=== PATIENT | female | born 1955 | race African-American/Black ===

== ENCOUNTER 2017-01-16 09:34 | Inpatient (IN) | payer MEDICAID, MEDICARE, OTHER ==
[~2017-01-16] VITALS: Ht 152.4 cm; Wt 135.0 kg
[~2017-01-16 09:34] MED LIST: CARV3.1240; DIAZ-104; ENAL5TAB92; FURO40TA; GLYB5TAB66; METF-370
[2017-01-16 10:45] LABS: Basophils # (auto) 0.1 uL; Basophils % (auto) 1.2 % (0.0-2.0); Eosinophils # (auto) 0.2 uL; Eosinophils % (auto) 4.2 % (0.0-7.0); Hemoglobin 13.7 g/dL (12.2-16.2); Lymphocytes # (auto) 1.3 uL; Lymphocytes % (auto) 25.8 % (10.0-50.0); Mean Corpuscular Hemoglobin 29.9 pg (28.0-32.0); Mean Corpuscular Hgb Conc. 33.3 g/dL (32.0-36.0); Mean Corpuscular Volume 89.7 fL (80.0-100.0); Mean Platelet Volume 7.7 fL (6.9-10.8); Monocytes # (auto) 0.5 uL; Monocytes % (auto) 10.7 % (0.0-12.0); Neutrophils # (auto) 2.9 uL; Neutrophils % (auto) 58.1 % (37.0-80.0); Nucleated Red Blood Cells % 0.1 %; Platelet Count (auto) 330 10^3/uL (140-450); Red Cell Distribution Width 14.5 % (11.8-14.3); White Blood Cell 4.9 10^3/uL (4.4-10.8)
[2017-01-16 11:24] LABS: Urine RBC None Seen /hpf (0 - 4)
[2017-01-16 11:40] LABS: Urine Bilirubin Negative (Negative); Urine Blood Negative /uL (Negative); Urine Color Yellow (Yellow); Urine Glucose Normal (Normal); Urine Ketone Negative (Negative); Urine Nitrite Negative (Negative); Urine Squamous Epithelial Cell FEW /hpf (<5); Urine Urobilinogen Normal (Negative)
[2017-01-16 11:43] LABS: BUN/Creatinine Ratio 16.7; Bilirubin, Total 0.3 mg/dL (0.2-1.0); Calcium 8.4 mg/dL (8.5-10.1); Potassium 4.1 mmol/L (3.5-5.1); Total Protein 7.5 g/dL (6.4-8.2)
[2017-01-16] MEDS ORDERED: LABETALOL HCL 5 MG/ML ML 20ML VIAL IV ONE ×2 (13:00→16:15)
[2017-01-16] MEDS ORDERED: cloNIDine HCL 0.1 MG TAB PO ONE (13:45)
[2017-01-16] MEDS ORDERED: ENALAPRIL MALEATE 10 MG TAB PO ONE (15:15)
[2017-01-16] MEDS ORDERED: HYDROcodone-ACET 5/325MG TAB PO PRN (16:45)
[2017-01-16] MEDS ORDERED: NITROGLYCERIN 0.4 MG SL TAB SL PRN (16:45)
[2017-01-16] MEDS ORDERED: MORPHINE SULF INJ 2 MG/ML SYRINGE 1ML IV PRN ×2 (16:45)
[2017-01-16] MEDS ORDERED: LABETALOL HCL 5 MG/ML ML 20ML VIAL IV PRN (16:45)
[2017-01-16] MEDS ORDERED: ACETAMINOPHEN 500 MG TAB PO PRN (16:45)
[2017-01-16] MEDS ORDERED: LORazepam 0.5 MG TAB PO PRN (16:45)
[2017-01-16] MEDS ORDERED: PROMETHAZINE HCL 25 MG/ML 1ML IV PRN (16:45)
[2017-01-16] MEDS ORDERED: TEMAZEPAM 15 MG CAP PO PRN (16:45)
[2017-01-16] MEDS ORDERED: ONDANSETRON HCL 4 MG/2 ML VIAL ONE (16:52)
[2017-01-16] MEDS: PANTOPRAZOLE 40 MG TAB PO SCH (17:51)
[2017-01-16] MEDS ORDERED: ENOXAPARIN SOD 40 MG/0.4 ML SYRINGE SC SCH (17:54)
[2017-01-16] MEDS ORDERED: LORazepam 2MG/ML-1ML VIAL IV PRN (18:30)
[2017-01-16 20:35] VITALS: BP 179/95
[2017-01-16 21:52] VITALS: BP 179/95
[2017-01-16] MEDS: METOPROLOL TARTRATE 25 MG TAB PO SCH (22:00)
[2017-01-16] MEDS ORDERED: ATORVASTATIN 20 MG TAB PO SCH (22:00)
[2017-01-17 04:44] VITALS: BP 153/98
[2017-01-17 08:00] VITALS: BP 158/98
[2017-01-17 08:58] VITALS: BP 158/98
[2017-01-17] MEDS ORDERED: ENALAPRIL MALEATE 10 MG TAB PO SCH (10:00)
[2017-01-17] MEDS ORDERED: ASPirin 81 mg TAB PO SCH (10:00)
[2017-01-17] MEDS ORDERED: ENOXAPARIN SOD 40 MG/0.4 ML SYRINGE SC SCH (10:00)
[2017-01-17] MEDS: METOPROLOL TARTRATE 25 MG TAB PO SCH (10:07)
[2017-01-17] MEDS: PANTOPRAZOLE 40 MG TAB PO SCH (10:07)
[2017-01-17 10:43] LABS: Temperature: 23.3 C (20.0-25.0)
[2017-01-17 14:05] VITALS: BP 161/96
[2017-01-17 16:42] VITALS: BP 162/92
[2017-01-17 17:32] VITALS: BP 132/93
== END 2017-01-17 19:00 | disposition home or self-care (01) | DRG 312 ==
LOC: ER 09:34 → EDBD 09:34 → TELE 09:35 → TELE-WESTW 20:35
PROVIDERS: ADMIT Internal Medicine; ATTEND Internal Medicine
DX: R55 Syncope and collapse (principal); I11.0 Hypertensive heart disease with heart failure; E44.0 Moderate protein-calorie malnutrition; I50.9 Heart failure, unspecified; E66.01 Morbid (severe) obesity due to excess calories; Z68.43 Body mass index [BMI] 50.0-59.9, adult; I16.0 Hypertensive urgency; F41.9 Anxiety disorder, unspecified; E11.9 Type 2 diabetes mellitus without complications; E78.5 Hyperlipidemia, unspecified; I25.2 Old myocardial infarction; Z82.0 Family history of epilepsy and other diseases of the nervous system; Z79.899 Other long term (current) drug therapy; Z79.82 Long term (current) use of aspirin; Z90.49 Acquired absence of other specified parts of digestive tract; Z90.710 Acquired absence of both cervix and uterus
CPT/HCPCS: 36415; 70450; 71020; 80053; 80061; 81001; 82550; 82607; 82746; 82962; 84443; 84484; 85025; 85379; 85652; 86141; 93005; 93306; 93886; 96372; 96374; 96375; J2405

== ENCOUNTER 2017-08-17 17:03 | Emergency (ER) | payer OTHER ==
[~2017-08-17] VITALS: Ht 152.4 cm; Wt 113.4 kg
[2017-08-17] MEDS ORDERED: ACETAMINOPHEN 325 MG TAB PO ONE (18:15)
[2017-08-17 19:20] VITALS: BP 157/93
== END 2017-08-17 20:56 | disposition home or self-care (01) ==
LOC: ER 17:03 → EDBD 17:03 → ER 20:56
DX: S00.01XA Abrasion of scalp, initial encounter (principal); I11.0 Hypertensive heart disease with heart failure; I50.9 Heart failure, unspecified; E11.9 Type 2 diabetes mellitus without complications; I25.2 Old myocardial infarction; Z79.84 Long term (current) use of oral hypoglycemic drugs; Z79.899 Other long term (current) drug therapy; Z90.49 Acquired absence of other specified parts of digestive tract; Z90.710 Acquired absence of both cervix and uterus; Y07.499 Other family member, perpetrator of maltreatment and neglect; Y93.89 Activity, other specified; Y99.8 Other external cause status; Y92.89 Other specified places as the place of occurrence of the external cause
CPT/HCPCS: 70450

== ENCOUNTER 2018-02-24 12:22 | Emergency (ER) | payer OTHER ==
[~2018-02-24] VITALS: Ht 165.1 cm; Wt 136.1 kg
[~2018-02-24 12:22] MED LIST changes: +ENAL5TAB; -ENAL5TAB92
[2018-02-24] MEDS ORDERED: MORPHINE SULFATE 10 MG/ML INJ 1ML SDV IV ONE (12:45)
[2018-02-24] MEDS ORDERED: ONDANSETRON HCL 4 MG/2 ML VIAL IV ONE (12:45)
[2018-02-24 13:52] LABS: Basophils # (auto) 0.1 uL; Basophils % (auto) 0.7 % (0.0-2.0); Eosinophils # (auto) 0.2 uL; Eosinophils % (auto) 2.3 % (0.0-7.0); Hematocrit 40.6 % (36.0-46.0); Hemoglobin 13.2 g/dL (12.2-16.2); Lymphocytes # (auto) 1.5 uL; Mean Corpuscular Hemoglobin 30.1 pg (28.0-32.0); Mean Corpuscular Hgb Conc. 32.6 g/dL (32.0-36.0); Mean Corpuscular Volume 92.1 fL (80.0-100.0); Monocytes # (auto) 0.5 uL; Monocytes % (auto) 7.7 % (0.0-12.0); Neutrophils # (auto) 4.7 uL; Neutrophils % (auto) 68.3 % (37.0-80.0); Nucleated Red Blood Cells % 0.1 %; Platelet Count (auto) 383 10^3/uL (140-450); Red Blood Cells 4.41 10^6/uL (4.0-5.20); Red Cell Distribution Width 14.2 % (11.8-14.3); White Blood Cell 6.9 10^3/uL (4.4-10.8)
[2018-02-24 14:10] LABS: Albumin 3.2 g/dL (3.4-5.0); Calcium 8.8 mg/dL (8.5-10.1)
[2018-02-24 14:12] LABS: BUN/Creatinine Ratio 14.8; Bilirubin, Total 0.2 mg/dL (0.2-1.0); Total Protein 7.5 g/dL (6.4-8.2)
[2018-02-24 15:55] VITALS: BP 108/72
[2018-02-24] MEDS: MORPHINE SULFATE 10 MG/ML INJ 1ML SDV IM ONE (16:04)
[2018-02-24] MEDS: ONDANSETRON HCL 4 MG/2 ML VIAL IM ONE (16:05)
== END 2018-02-24 16:05 | disposition home or self-care (01) ==
LOC: ER 12:22 → EDBD 12:22 → ER 16:05
DX: M54.41 Lumbago with sciatica, right side (principal); M79.18 Myalgia, other site; I11.0 Hypertensive heart disease with heart failure; I50.9 Heart failure, unspecified; E78.5 Hyperlipidemia, unspecified; I25.2 Old myocardial infarction; E11.9 Type 2 diabetes mellitus without complications; Z90.710 Acquired absence of both cervix and uterus; Z90.49 Acquired absence of other specified parts of digestive tract; Z79.84 Long term (current) use of oral hypoglycemic drugs; Z79.899 Other long term (current) drug therapy
CPT/HCPCS: 36415; 72131; 80053; 85025; 94761; 96372; 99284; J2270; J2405

== ENCOUNTER 2020-08-01 15:22 | Inpatient (IN) | payer OTHER ==
[~2020-08-01] VITALS: Ht 165.1 cm; Wt 136.5 kg
[~2020-08-01 15:22] MED LIST changes: -CARV3.1240; +CARV3.1240 PO; -DIAZ-104; +DIAZ5TAB; -ENAL5TAB; +ENAL5TAB10 PO; +FURO1TAB31 PO; -FURO40TA; -GLYB5TAB66; +GLYB5TAB66 PO; -METF-370; +METF-370 PO
[2020-08-01 17:17] LABS: Basophils # (auto) 0.1 10 ^3/uL (0-0.2); Basophils % (auto) 0.8 % (0.0-2.0); Eosinophils # (auto) 0.2 10 ^3/uL (0-0.8); Eosinophils % (auto) 3.3 % (0.0-7.0); Hematocrit 33.4 % (36.0-46.0); Lymphocytes # (auto) 1.6 10 ^3/uL (0.4-5.4); Lymphocytes % (auto) 23.8 % (10.0-50.0); Mean Corpuscular Hemoglobin 29.1 pg (28.0-32.0); Mean Corpuscular Volume 88.3 fL (80.0-100.0); Monocytes # (auto) 0.7 10 ^3/uL (0-1.3); Monocytes % (auto) 10.3 % (0.0-12.0); Neutrophils # (auto) 4.2 10 ^3/uL (1.6-8.6); Neutrophils % (auto) 61.8 % (37.0-80.0); Nucleated Red Blood Cells % 0.1 %; Red Blood Cells 3.79 10^6/uL (4.0-5.20); Red Cell Distribution Width 15.4 % (11.8-14.3); White Blood Cell 6.7 10^3/uL (4.4-10.8)
[2020-08-01] MEDS ORDERED: FUROSEMIDE 40 MG/4 ML VIAL IV ONE (17:30)
[2020-08-01 17:34] LABS: Albumin 2.7 g/dL (3.4-5.0); Anion Gap 6 (5-15); Aspartate Aminotransferase 13 U/L (15-37); BUN/Creatinine Ratio 18.4; Blood Urea Nitrogen 30 mg/dL (7-18); Calcium 8.4 mg/dL (8.5-10.1); Carbon Dioxide 26 mmol/L (21-32); Chloride 108 mmol/L (98-107); GFR African American 41 mL/min; GFR Non-African American 34 mL/min; Glucose 81 mg/dL (74-106); Potassium 4.7 mmol/L (3.5-5.1); Sodium 140 mmol/L (136-145)
[2020-08-01 17:38] LABS: Alanine Aminotransferase 16 U/L (13-56); Alkaline Phosphatase 92 U/L (45-117); Bilirubin, Total 0.1 mg/dL (0.2-1.0); Total Protein 7.2 g/dL (6.4-8.2)
[2020-08-01 18:13] LABS: Urine WBC None Seen /hpf (0 - 5)
[2020-08-01 18:37] LABS: Urine Bacteria NONE SEEN /hpf (None Seen); Urine Blood 1+ /uL (Negative); Urine Hyaline Cast MOD /lpf (0 - 2); Urine Mucus FEW (None Seen); Urine Specific Gravity 1.013 (1.001-1.035)
[2020-08-01] MEDS ORDERED: ENOXAPARIN SOD 60 MG/0.6 ML SYRINGE SC ONE (20:00)
[2020-08-01] MEDS ORDERED: NITROGLYCERIN 0.4 MG SL TAB SL PRN (20:00)
[2020-08-01] MEDS ORDERED: hydrALAZINE HCL 20 MG/ML VL IV PRN (20:00)
[2020-08-01] MEDS ORDERED: DOCUSATE CALCIUM 240 MG CAP PO PRN (20:00)
[2020-08-01] MEDS ORDERED: LORazepam 0.5 MG TAB PO PRN (20:00)
[2020-08-01] MEDS ORDERED: MORPHINE SULFATE INJECTION 2 MG/ML SYRG IV PRN ×2 (20:00)
[2020-08-01 21:20] VITALS: BP 156/93
[2020-08-01] MEDS: ONDANSETRON HCL 4 MG/2 ML VIAL IV PRN (21:53)
[2020-08-01] MEDS: BUDESONIDE (INHALATION) 0.5 MG/2 ML NEB NEB SCH (22:39)
[2020-08-01] MEDS: ALBUTEROL SULF 2.5 MG/0.5ML(0.5%) NEB SOLN NEB PRN (22:39)
[2020-08-01] MEDS: IPRATROPIUM BROM 0.5 MG/2.5ML INH SOL NEB PRN (22:40)
[2020-08-02] VITALS (8 sets, daily range): BP systolic 119–146; BP diastolic 30–80
[2020-08-02 05:57] LABS: Potassium 4.3 mmol/L (3.5-5.1)
[2020-08-02 06:03] LABS: INR 1.03 (0.9-1.15)
[2020-08-02 06:04] LABS: Albumin 2.7 g/dL (3.4-5.0); BUN/Creatinine Ratio 19.3; Bilirubin, Total 0.3 mg/dL (0.2-1.0); Calcium 8.3 mg/dL (8.5-10.1); Total Protein 6.6 g/dL (6.4-8.2)
[2020-08-02 06:21] LABS: Basophils # (auto) 0 10 ^3/uL (0-0.2); Basophils % (auto) 0.6 % (0.0-2.0); Eosinophils # (auto) 0.2 10 ^3/uL (0-0.8); Eosinophils % (auto) 3.9 % (0.0-7.0); Hematocrit 30.4 % (36.0-46.0); Hemoglobin 10.1 g/dL (12.2-16.2); Lymphocytes # (auto) 1.5 10 ^3/uL (0.4-5.4); Lymphocytes % (auto) 24.9 % (10.0-50.0); Mean Corpuscular Hemoglobin 28.8 pg (28.0-32.0); Mean Corpuscular Hgb Conc. 33.2 g/dL (32.0-36.0); Mean Corpuscular Volume 86.8 fL (80.0-100.0); Monocytes # (auto) 0.8 10 ^3/uL (0-1.3); Monocytes % (auto) 13.5 % (0.0-12.0); Neutrophils # (auto) 3.5 10 ^3/uL (1.6-8.6); Neutrophils % (auto) 57.1 % (37.0-80.0); Nucleated Red Blood Cells % 0.2 %; Red Cell Distribution Width 15.3 % (11.8-14.3); White Blood Cell 6.1 10^3/uL (4.4-10.8)
[2020-08-02] MEDS: PANTOPRAZOLE 40 MG TAB PO SCH (09:44)
[2020-08-02] MEDS ORDERED: ENOXAPARIN SOD 40 MG/0.4 ML SYRINGE SC SCH (10:00)
[2020-08-02] MEDS: ACETAMINOPHEN 500 MG TAB PO PRN (10:27)
[2020-08-02] MEDS: BUDESONIDE (INHALATION) 0.5 MG/2 ML NEB NEB SCH ×2 (10:39→19:11)
[2020-08-02] MEDS ORDERED: ATOR20TA50 PO (13:03)
[2020-08-02] MEDS ORDERED: ASPI81CH74 PO (13:03)
[2020-08-02] MEDS ORDERED: CHOL20007 OR (13:03)
[2020-08-02] MEDS ORDERED: GLIP10TA9 PO (13:11)
[2020-08-02 14:48] LABS: Protein, Urine 9.7 mg/dL (0.0-11.9)
[2020-08-02] MEDS: HYDROcodone-ACET 5/325MG TAB PO PRN ×2 (16:21→22:49)
[2020-08-02] MEDS: FUROSEMIDE 40 MG TAB PO SCH (18:05)
[2020-08-02] MEDS: glipiZIDE 5 MG TAB PO SCH (18:16)
[2020-08-02 19:55] LABS: Urine Bacteria FEW /hpf (None Seen); Urine Blood 3+ /uL (Negative); Urine Mucus FEW (None Seen); Urine Specific Gravity 1.018 (1.001-1.035); Urine WBC 64 /hpf (0 - 5)
[2020-08-02] MEDS: CARVEDILOL 3.125 MG TAB PO SCH (22:39)
[2020-08-02] MEDS: DULoxetine HCL 30 MG CAP PO SCH (22:39)
[2020-08-02] MEDS: APIXABAN 5 MG TAB PO SCH (22:40)
[2020-08-02] MEDS: ATORVASTATIN 20 MG TAB PO SCH (22:40)
[2020-08-03] VITALS (7 sets, daily range): BP systolic 95–154; BP diastolic 50–95
[2020-08-03 06:29] LABS: Basophils # (auto) 0 10 ^3/uL (0-0.2); Eosinophils # (auto) 0.2 10 ^3/uL (0-0.8); Eosinophils % (auto) 4.4 % (0.0-7.0); Hematocrit 29.8 % (36.0-46.0); Lymphocytes % (auto) 19.7 % (10.0-50.0); Mean Corpuscular Hemoglobin 29.3 pg (28.0-32.0); Mean Corpuscular Hgb Conc. 33.5 g/dL (32.0-36.0); Mean Corpuscular Volume 87.6 fL (80.0-100.0); Monocytes # (auto) 0.6 10 ^3/uL (0-1.3); Monocytes % (auto) 11.4 % (0.0-12.0); Neutrophils # (auto) 3.1 10 ^3/uL (1.6-8.6); Neutrophils % (auto) 63.5 % (37.0-80.0); Nucleated Red Blood Cells % 0.1 %; Red Cell Distribution Width 15.2 % (11.8-14.3); White Blood Cell 4.9 10^3/uL (4.4-10.8)
[2020-08-03 06:41] LABS: Calcium 8.2 mg/dL (8.5-10.1); Potassium 4.6 mmol/L (3.5-5.1)
[2020-08-03 06:46] LABS: Alanine Aminotransferase 14 U/L (13-56); Albumin 2.6 g/dL (3.4-5.0); Alkaline Phosphatase 74 U/L (45-117); Aspartate Aminotransferase 10 U/L (15-37); BUN/Creatinine Ratio 18.3; Bilirubin, Direct < 0.1 mg/dL (0-0.2); Bilirubin, Total 0.3 mg/dL (0.2-1.0); Phosphorus 3.7 mg/dL (2.5-4.90); Total Protein 6.7 g/dL (6.4-8.2)
[2020-08-03] MEDS: FUROSEMIDE 40 MG TAB PO SCH ×2 (06:52→17:31)
[2020-08-03] MEDS: glipiZIDE 5 MG TAB PO SCH ×2 (06:57→17:32)
[2020-08-03] MEDS: IPRATROPIUM BROM 0.5 MG/2.5ML INH SOL NEB PRN ×2 (07:39→18:13)
[2020-08-03] MEDS: ALBUTEROL SULF 2.5 MG/0.5ML(0.5%) NEB SOLN NEB PRN ×2 (07:39→18:13)
[2020-08-03] MEDS: BUDESONIDE (INHALATION) 0.5 MG/2 ML NEB NEB SCH ×2 (07:39→18:13)
[2020-08-03] MEDS: CHOLECALCIFEROL (VITD3) 1,000UNIT=25mCg TAB PO SCH (09:40)
[2020-08-03] MEDS: PANTOPRAZOLE 40 MG TAB PO SCH (09:40)
[2020-08-03] MEDS: ENALAPRIL MALEATE 10 MG TAB PO SCH (09:40)
[2020-08-03] MEDS: DULoxetine HCL 30 MG CAP PO SCH ×2 (09:41→21:52)
[2020-08-03] MEDS: APIXABAN 5 MG TAB PO SCH ×2 (09:41→21:52)
[2020-08-03] MEDS: CARVEDILOL 3.125 MG TAB PO SCH ×2 (09:42→21:52)
[2020-08-03] MEDS ORDERED: ASPirin 81 mg TAB PO SCH (10:00)
[2020-08-03] MEDS: MORPHINE SULFATE INJECTION 2 MG/ML SYRG IV PRN (18:43)
[2020-08-03] MEDS: ONDANSETRON HCL 4 MG/2 ML VIAL IV PRN (18:43)
[2020-08-03] MEDS: ATORVASTATIN 20 MG TAB PO SCH (21:52)
[2020-08-04 05:00] VITALS: BP 150/85
[2020-08-04 06:08] LABS: Basophils # (auto) 0 10 ^3/uL (0-0.2); Basophils % (auto) 0.5 % (0.0-2.0); Eosinophils # (auto) 0.2 10 ^3/uL (0-0.8); Eosinophils % (auto) 3.4 % (0.0-7.0); Hematocrit 31.3 % (36.0-46.0); Hemoglobin 10.6 g/dL (12.2-16.2); Lymphocytes # (auto) 0.7 10 ^3/uL (0.4-5.4); Lymphocytes % (auto) 12.5 % (10.0-50.0); Mean Corpuscular Hemoglobin 29.4 pg (28.0-32.0); Mean Corpuscular Hgb Conc. 33.8 g/dL (32.0-36.0); Monocytes # (auto) 0.6 10 ^3/uL (0-1.3); Neutrophils # (auto) 4.1 10 ^3/uL (1.6-8.6); Neutrophils % (auto) 72.6 % (37.0-80.0); Nucleated Red Blood Cells % 0.1 %; Red Cell Distribution Width 15.2 % (11.8-14.3); White Blood Cell 5.7 10^3/uL (4.4-10.8)
[2020-08-04] MEDS: FUROSEMIDE 40 MG TAB PO SCH ×2 (06:31→17:45)
[2020-08-04] MEDS: glipiZIDE 5 MG TAB PO SCH ×2 (06:32→17:44)
[2020-08-04 06:36] LABS: Calcium 8.4 mg/dL (8.5-10.1); Potassium 4.5 mmol/L (3.5-5.1)
[2020-08-04 06:40] LABS: BUN/Creatinine Ratio 19.9; Magnesium 2.6 mg/dL (1.6-2.6)
[2020-08-04] MEDS: BUDESONIDE (INHALATION) 0.5 MG/2 ML NEB NEB SCH ×2 (09:09→20:27)
[2020-08-04] MEDS: IPRATROPIUM BROM 0.5 MG/2.5ML INH SOL NEB PRN (09:09)
[2020-08-04] MEDS: ALBUTEROL SULF 2.5 MG/0.5ML(0.5%) NEB SOLN NEB PRN (09:09)
[2020-08-04] MEDS: CARVEDILOL 3.125 MG TAB PO SCH (09:19)
[2020-08-04] MEDS: APIXABAN 5 MG TAB PO SCH (09:19)
[2020-08-04] MEDS: PANTOPRAZOLE 40 MG TAB PO SCH (09:19)
[2020-08-04] MEDS: ENALAPRIL MALEATE 10 MG TAB PO SCH (09:20)
[2020-08-04] MEDS: CHOLECALCIFEROL (VITD3) 1,000UNIT=25mCg TAB PO SCH (09:21)
[2020-08-04] MEDS: ACETAMINOPHEN 500 MG TAB PO PRN (09:21)
[2020-08-04 09:24] VITALS: BP 142/72
[2020-08-04] MEDS: DULoxetine HCL 30 MG CAP PO SCH ×2 (10:00→11:13)
[2020-08-04] MEDS: HYDROcodone-ACET 5/325MG TAB PO PRN ×2 (11:13→21:25)
[2020-08-04 13:00] VITALS: BP 117/80
[2020-08-04] MEDS: GABAPENTIN 300 MG CAP PO SCH (14:25)
[2020-08-04 17:00] VITALS: BP 109/59
[2020-08-04 22:00] VITALS: BP_SYST 149; BP_SYST 157; BP_DIAS 86; BP_DIAS 87
[2020-08-05] MEDS: ATORVASTATIN 20 MG TAB PO SCH ×2 (01:54→21:24)
[2020-08-05] MEDS: DULoxetine HCL 30 MG CAP PO SCH ×3 (01:54→21:23)
[2020-08-05] MEDS: GABAPENTIN 300 MG CAP PO SCH ×4 (01:54→21:23)
[2020-08-05] MEDS: APIXABAN 5 MG TAB PO SCH ×3 (01:54→21:23)
[2020-08-05] MEDS: CARVEDILOL 3.125 MG TAB PO SCH ×3 (01:55→23:27)
[2020-08-05 03:20] VITALS: BP 149/86
[2020-08-05 05:00] VITALS: BP 157/87
[2020-08-05] MEDS: FUROSEMIDE 40 MG TAB PO SCH ×2 (05:14→17:35)
[2020-08-05] MEDS: glipiZIDE 5 MG TAB PO SCH ×2 (06:08→17:34)
[2020-08-05 06:31] LABS: Basophils # (auto) 0 10 ^3/uL (0-0.2); Basophils % (auto) 0.5 % (0.0-2.0); Eosinophils # (auto) 0.3 10 ^3/uL (0-0.8); Eosinophils % (auto) 4.7 % (0.0-7.0); Hematocrit 30.8 % (36.0-46.0); Hemoglobin 10.3 g/dL (12.2-16.2); Lymphocytes # (auto) 0.8 10 ^3/uL (0.4-5.4); Lymphocytes % (auto) 14.4 % (10.0-50.0); Mean Corpuscular Hgb Conc. 33.5 g/dL (32.0-36.0); Mean Corpuscular Volume 86.4 fL (80.0-100.0); Monocytes # (auto) 0.7 10 ^3/uL (0-1.3); Monocytes % (auto) 12.2 % (0.0-12.0); Neutrophils # (auto) 3.8 10 ^3/uL (1.6-8.6); Neutrophils % (auto) 68.2 % (37.0-80.0); Red Blood Cells 3.57 10^6/uL (4.0-5.20); Red Cell Distribution Width 15.2 % (11.8-14.3); White Blood Cell 5.5 10^3/uL (4.4-10.8)
[2020-08-05 06:42] LABS: Potassium 4.6 mmol/L (3.5-5.1)
[2020-08-05 06:56] LABS: BUN/Creatinine Ratio 20.8; Calcium 8.3 mg/dL (8.5-10.1); Magnesium 2.5 mg/dL (1.6-2.6)
[2020-08-05 09:00] VITALS: BP 156/82
[2020-08-05] MEDS: ENALAPRIL MALEATE 10 MG TAB PO SCH (10:13)
[2020-08-05] MEDS: PANTOPRAZOLE 40 MG TAB PO SCH (10:13)
[2020-08-05] MEDS: CHOLECALCIFEROL (VITD3) 1,000UNIT=25mCg TAB PO SCH (10:13)
[2020-08-05] MEDS: ALBUTEROL SULF 2.5 MG/0.5ML(0.5%) NEB SOLN NEB PRN ×2 (10:16→22:18)
[2020-08-05] MEDS: BUDESONIDE (INHALATION) 0.5 MG/2 ML NEB NEB SCH ×2 (10:16→22:18)
[2020-08-05] MEDS: IPRATROPIUM BROM 0.5 MG/2.5ML INH SOL NEB PRN ×2 (10:16→22:18)
[2020-08-05 13:00] VITALS: BP 144/88
[2020-08-05] MEDS: MORPHINE SULFATE INJECTION 2 MG/ML SYRG IV PRN (13:11)
[2020-08-05 17:17] VITALS: BP 148/84
[2020-08-05 22:00] VITALS: BP 155/89
[2020-08-06 05:00] VITALS: BP 144/89
[2020-08-06] MEDS: GABAPENTIN 300 MG CAP PO SCH ×3 (06:41→21:43)
[2020-08-06] MEDS: glipiZIDE 5 MG TAB PO SCH ×2 (06:42→18:00)
[2020-08-06] MEDS: FUROSEMIDE 40 MG TAB PO SCH ×2 (06:42→20:03)
[2020-08-06 07:29] LABS: Basophils # (auto) 0 10 ^3/uL (0-0.2); Basophils % (auto) 0.5 % (0.0-2.0); Eosinophils # (auto) 0.2 10 ^3/uL (0-0.8); Eosinophils % (auto) 3.8 % (0.0-7.0); Hematocrit 32.5 % (36.0-46.0); Hemoglobin 10.7 g/dL (12.2-16.2); Lymphocytes % (auto) 17.2 % (10.0-50.0); Mean Corpuscular Hemoglobin 28.6 pg (28.0-32.0); Mean Corpuscular Volume 86.7 fL (80.0-100.0); Monocytes # (auto) 0.7 10 ^3/uL (0-1.3); Neutrophils % (auto) 66.5 % (37.0-80.0); Nucleated Red Blood Cells % 0.1 %; Red Blood Cells 3.75 10^6/uL (4.0-5.20); Red Cell Distribution Width 15.2 % (11.8-14.3)
[2020-08-06 07:53] LABS: BUN/Creatinine Ratio 23.1; Calcium 8.4 mg/dL (8.5-10.1); Magnesium 2.6 mg/dL (1.6-2.6); Potassium 4.3 mmol/L (3.5-5.1)
[2020-08-06 08:00] VITALS: BP 144/89
[2020-08-06 09:00] VITALS: BP 124/75
[2020-08-06] MEDS: BUDESONIDE (INHALATION) 0.5 MG/2 ML NEB NEB SCH ×2 (10:20→19:44)
[2020-08-06] MEDS: ALBUTEROL SULF 2.5 MG/0.5ML(0.5%) NEB SOLN NEB PRN ×2 (10:20→19:44)
[2020-08-06] MEDS: IPRATROPIUM BROM 0.5 MG/2.5ML INH SOL NEB PRN ×2 (10:20→19:44)
[2020-08-06] MEDS: CHOLECALCIFEROL (VITD3) 1,000UNIT=25mCg TAB PO SCH (11:21)
[2020-08-06] MEDS: PANTOPRAZOLE 40 MG TAB PO SCH (11:22)
[2020-08-06] MEDS: APIXABAN 5 MG TAB PO SCH ×2 (11:22→21:44)
[2020-08-06] MEDS: ENALAPRIL MALEATE 10 MG TAB PO SCH (11:23)
[2020-08-06] MEDS: DULoxetine HCL 30 MG CAP PO SCH ×2 (11:23→21:44)
[2020-08-06] MEDS: CARVEDILOL 3.125 MG TAB PO SCH ×2 (11:25→21:45)
[2020-08-06 12:00] VITALS: BP 121/91
[2020-08-06 17:00] VITALS: BP 153/83
[2020-08-06] MEDS: ATORVASTATIN 20 MG TAB PO SCH (21:44)
[2020-08-06 22:00] VITALS: BP 150/100
[2020-08-07 05:00] VITALS: BP 139/69
[2020-08-07] MEDS: FUROSEMIDE 40 MG TAB PO SCH ×2 (05:19→18:00)
[2020-08-07] MEDS: GABAPENTIN 300 MG CAP PO SCH ×2 (05:19→14:25)
[2020-08-07] MEDS: HYDROcodone-ACET 5/325MG TAB PO PRN (05:25)
[2020-08-07] MEDS: glipiZIDE 5 MG TAB PO SCH ×2 (06:36→18:00)
[2020-08-07] MEDS: BUDESONIDE (INHALATION) 0.5 MG/2 ML NEB NEB SCH ×2 (06:52→19:37)
[2020-08-07] MEDS: IPRATROPIUM BROM 0.5 MG/2.5ML INH SOL NEB PRN (06:53)
[2020-08-07] MEDS: ALBUTEROL SULF 2.5 MG/0.5ML(0.5%) NEB SOLN NEB PRN (06:53)
[2020-08-07 09:00] VITALS: BP 161/94
[2020-08-07] MEDS: PANTOPRAZOLE 40 MG TAB PO SCH (09:59)
[2020-08-07] MEDS: APIXABAN 5 MG TAB PO SCH (09:59)
[2020-08-07] MEDS: CARVEDILOL 3.125 MG TAB PO SCH (09:59)
[2020-08-07] MEDS: ENALAPRIL MALEATE 10 MG TAB PO SCH (10:00)
[2020-08-07] MEDS: DULoxetine HCL 30 MG CAP PO SCH (10:00)
[2020-08-07] MEDS: CHOLECALCIFEROL (VITD3) 1,000UNIT=25mCg TAB PO SCH (10:01)
[2020-08-07 13:00] VITALS: BP 160/94
[2020-08-07 17:00] VITALS: BP 162/87
[2020-08-07 19:51] VITALS: BP 162/87
== END 2020-08-07 20:40 | DRG 299 ==
LOC: ER 15:22 → EDBD 15:22 → TELE 19:52 → TELE-EAST 21:20
PROVIDERS: ADMIT Family Medicine; ATTEND Internal Medicine
DX: I82.411 Acute embolism and thrombosis of right femoral vein (principal); N17.0 Acute kidney failure with tubular necrosis; I50.43 Acute on chronic combined systolic (congestive) and diastolic (congestive) heart failure; Z68.43 Body mass index [BMI] 50.0-59.9, adult; I13.0 Hypertensive heart and chronic kidney disease with heart failure and stage 1 through stage 4 chronic kidney disease, or unspecified chronic kidney disease; I69.354 Hemiplegia and hemiparesis following cerebral infarction affecting left non-dominant side; E11.42 Type 2 diabetes mellitus with diabetic polyneuropathy; E66.01 Morbid (severe) obesity due to excess calories; N18.32 Chronic kidney disease, stage 3b; D64.9 Anemia, unspecified; F41.9 Anxiety disorder, unspecified; Z20.822 Contact with and (suspected) exposure to COVID-19; E11.22 Type 2 diabetes mellitus with diabetic chronic kidney disease; E78.5 Hyperlipidemia, unspecified; J44.9 Chronic obstructive pulmonary disease, unspecified; Z90.49 Acquired absence of other specified parts of digestive tract; I25.2 Old myocardial infarction; Z79.01 Long term (current) use of anticoagulants; Z79.899 Other long term (current) drug therapy; Z90.710 Acquired absence of both cervix and uterus; I69.320 Aphasia following cerebral infarction
CPT/HCPCS: 36415; 71045; 76775; 80048; 80053; 80076; 81001; 82306; 82570; 82962; 83036; 83735; 83880; 84100; 84156; 84300; 84443; 84484; 85025; 85379; 85610; 87081; 87086; 87426; 93005; 93306; 93970; 94640; 96372; 96374; 96375; 97110; 97530; 99291; G0378; J2405

== ENCOUNTER 2020-09-14 18:28 | Emergency (ER) | payer OTHER ==
[~2020-09-14] VITALS: Ht 149.9 cm; Wt 113.4 kg
[~2020-09-14 18:28] MED LIST changes: +ASPI81CH74 PO; +ATOR20TA50 PO; +CHOL20007 OR; -DIAZ5TAB; +GLIP10TA9 PO; -GLYB5TAB66 PO
[2020-09-14 22:19] VITALS: BP 154/119
[2020-09-14] MEDS ORDERED: KETOROLAC TROMETH 60MG/2ML VIAL IM ONE (22:30)
== END 2020-09-15 03:10 | disposition home or self-care (01) ==
LOC: ER 18:34
DX: S83.8X2A Sprain of other specified parts of left knee, initial encounter (principal); M17.12 Unilateral primary osteoarthritis, left knee; I11.0 Hypertensive heart disease with heart failure; I50.9 Heart failure, unspecified; E11.9 Type 2 diabetes mellitus without complications; E78.5 Hyperlipidemia, unspecified; I25.2 Old myocardial infarction; Z79.82 Long term (current) use of aspirin; Z79.84 Long term (current) use of oral hypoglycemic drugs; Z79.899 Other long term (current) drug therapy; Z86.73 Personal history of transient ischemic attack (TIA), and cerebral infarction without residual deficits; Z90.49 Acquired absence of other specified parts of digestive tract; Z90.710 Acquired absence of both cervix and uterus; W01.0XXA Fall on same level from slipping, tripping and stumbling without subsequent striking against object, initial encounter; Y93.89 Activity, other specified; Y92.89 Other specified places as the place of occurrence of the external cause; Y99.8 Other external cause status
CPT/HCPCS: 73562; 73700; 96372; 99284; J1885

== ENCOUNTER 2024-04-26 13:53 | Inpatient (IN) | payer OTHER, MEDICARE, MEDICAID ==
[~2024-04-26] VITALS: Ht 154.9 cm; Wt 98.9 kg
[~2024-04-26 13:53] MED LIST changes: -ENAL5TAB10 PO; +ENAL5TAB22 PO
[2024-04-26] MEDS: ONDANSETRON ODT 4 MG TAB PO ONE (14:15)
[2024-04-26 14:55] VITALS: PULSE 140; RESP 18; O2SAT 94
[2024-04-26 16:14] LABS: Basophils # (auto) 0 10 ^3/uL (0-0.2); Basophils % (auto) 0.2 % (0.0-2.0); Eosinophils # (auto) 0 10 ^3/uL (0-0.8); Eosinophils % (auto) 0.4 % (0.0-7.0); Hematocrit 45.5 % (36.0-46.0); Hemoglobin 14.8 g/dL (12.2-16.2); Lymphocytes # (auto) 0.9 10 ^3/uL (0.4-5.4); Lymphocytes % (auto) 9.4 % (10.0-50.0); Mean Corpuscular Hemoglobin 30.4 pg (28.0-32.0); Mean Corpuscular Hgb Conc. 32.5 g/dL (32.0-36.0); Mean Corpuscular Volume 93.6 fL (80.0-100.0); Monocytes # (auto) 0.6 10 ^3/uL (0-1.3); Monocytes % (auto) 6.5 % (0.0-12.0); Neutrophils # (auto) 8.2 10 ^3/uL (1.6-8.6); Neutrophils % (auto) 83.5 % (37.0-80.0); Nucleated Red Blood Cells % 0.1 %; Platelet Count (auto) 405 10^3/uL (140-450); Red Blood Cells 4.87 10^6/uL (4.0-5.20); Red Cell Distribution Width 16.4 % (11.8-14.3); White Blood Cell 9.8 10^3/uL (4.4-10.8)
--- NOTE | 2024-04-26 16:17 | ED.PDOC ---
GI ASSESSMENT HPI Comments 69 y/o F, BIBA with PMHX of cancer, CHF, CVA, DM, HLD, HTN, and OH presents to the ED for CC of nausea/vomiting. Patient states, that she has been having nausea and vomiting x3days with associated symptoms of abdominal discomfort. Patient denies change in diet, diarrhea, fever, chills, or poor fluid intake. Patient denies social history. No other symptoms or modifying factors presents at this time. Chief Complaint: Nausea/Vomiting Time Seen by MD: 15:05 Primary Care Provider: RADHA Reviewed Notes: Nurses Notes, Integration Engineer Notes, Medications, Allergies Allergies: Coded Allergies: NO KNOWN ALLERGIES (Unverified , 04/02/10) Home Meds Reported Medications Glipizide (Glipizide) 10 Mg Tab, 1 TAB PO BID, #60 TAB 5 Refills 08/02/20 Atorvastatin Calcium (ATORVASTATIN CALCIUM) 20 Mg Tab, 1 TAB PO DAILY, #30 TAB 5 Refills 08/02/20 Cholecalciferol (VITAMIN D3) 2,000 Unit Tab, 5000 UNIT OR DAILY, TAB 08/02/20 Aspirin (Aspirin 81 Low Dose) 81 Mg Chw, 81 MG PO DAILY, TAB.CHEW 08/02/20 Carvedilol (Carvedilol) 3.125 Mg Tab, 1 TAB PO BID 04/02/10 Metformin Hydrochloride (Metformin Hcl) 500 Mg Tab, 1000 MG PO BID 04/02/10 Furosemide (Lasix) 40 Mg Tab, 1 TAB PO BID 04/02/10 Enalapril Maleate (Enalapril Maleate) 5 Mg Tab, 10 MG PO DAILY 04/02/10 Information Source: Patient Mode of Arrival: EMS Timing: Days Duration: Since onset Prehospital treatment: None Quality: None Vomitus: Watery Stool: Normal Severity: Moderate Recent: None Recent Hx of: None Pain Location: None Modifying Factors: Nothing Associated sign and symptoms: Nausea, Vomiting Past Medical History PAST MEDICAL HISTORY: Cancer, CHF, CVA, DM, High Lipids, HTN, OH Surgical History: Cholecystectomy, Hysterectomy ENGINEERING LEADER History: No Pertinent ENGINEERING LEADER History Family History Family History: Reviewed,noncontributory to illness, No family hx of Cancer Social History Smoker: Non-Smoker Alcohol: Denies ETOH Use Drugs: Denies Drug Use Lives In: Home Constitutional: denies: chills, diaphoresis, fatigue, fever, malaise, sweats, weakness, others EENTM: denies: blurred vision, double vision, ear bleeding, ear discharge, ear drainage, ear pain, ear ringing, eye pain, eye redness, hearing loss, mouth pain, mouth swelling, nasal discharge, nose bleeding, nose congestion, nose pain, photophobia, tearing, throat pain, throat swelling, voice changes, others Respiratory: denies: cough, hemoptysis, orthopnea, SOB at rest, shortness of breath, SOB with excertion, stridor, wheezing, others Cardiovascular: denies: chest pain, dizzy spells, diaphoresis, Dyspnea on exertion, edema, irregular heart beat, left arm pain, lightheadedness, palpitations, PND, syncope, others Gastrointestinal: reports: nausea, vomiting; denies: abdomen distended, abdominal pain, blood streaked bowels, constipated, diarrhea, dysphagia, difficulty swallowing, hematemesis, melena, poor appetite, poor fluid intake, rectal bleeding, rectal pain, others Genitourinary: denies: abnormal vagina bleeding, burning, dyspareunia, dysuria, flank pain, frequency, hematuria, incontinence, pain, , vagina discharge, urgency, others Neurological: denies: dizziness, fainting, headache, left sided numbness, left sided weakness, numbness, paresthesia, pre-existing deficit, right sided numbness, right sided weakness, seizure, speech problems, tingling, tremors, weakness, others Musculoskeletal: denies: back pain, gout, joint pain, joint swelling, muscle pain, muscle stiffness, neck pain, others Integumetry: denies: bruises, change in color, change in hair/nails, dryness, laceration, lesions, lumps, rash, wounds, others Allergic/Immunocompromised: denies: Difficulty Healing, Frequent Infections, Hives, Itching, others Hematologic/Lymphatic: denies: anemia, blood clots, easy bleeding, easy bruising, swollen glands, others Endocrine: denies: excessive hunger, excessive sweating, excessive thirst, excessive urination, flushing, intolerance to cold, intolerance to heat, unexplained weight gain, unexplained weight loss, others Psychiatric: denies: anxiety, bipolar disorder, depression, hopeless, panic disorder, schizophrenia, sleepless, suicidal, others All Other Systems: Reviewed and Negative Physical Exam General Appearance: Obese HEENT: Normal ENT Inspection, Pharynx Normal, Other (edentulism) Neck: Full Range of Motion, Non-Tender, Normal, Normal Inspection Respiratory: Chest Non-Tender, Lungs Clear, No Accessory Muscle Use, No Respiratory Distress, Normal Breath Sounds Cardiovascular: No Edema, No JVD, No Murmur, No Gallop, Normal Peripheral Pulses, Regular Rate/Rhythm Breast Exam: Deferred Gastrointestinal: No Organomegaly, No Pulsatile Mass, Normal Bowel Sounds, Tenderness Genitalia: Deferred Pelvic: Deferred Rectal: Deferred Musculoskeletal : Apperance: Normal Neurologic: Alert, color drum worker II-XII nml as Tested, No Motor Deficits, Normal Affect, Normal Mood, No Sensory Deficits Cerebellar Function: Normal Reflexes: Normal Skin: Dry, Normal Color, Warm Was a procedure done? Was a procedure done?: No GI differential Dx Differential Diagnosis: Gastritis/PUD, Gastroenteritis, Electrolyte Imbalance, Food Poisoning, Bacterial, Viral X-Ray, Labs, Meds, VS Vital Signs Date Time Temp Pulse Resp B/P (MAP) Pulse Ox O2 Delivery O2 Flow Rate FiO2 04/26/24 19:18 99.1 109 20 111/82 (92) 97 99.1 04/26/24 19:18 109 97 Room Air* 0 21 04/26/24 18:03 98.9 112 18 125/86 (99) 97 98.9 04/26/24 17:00 97.7 111 20 123/72 (89) 95 97.7 04/26/24 17:00 111 20 95 Room Air* 0 21 04/26/24 16:17 98.6 106 18 142/86 (104) 98 04/26/24 14:55 98.9 140 18 104/79 (87) 92 98.9 04/26/24 14:55 140 18 94 Room Air* 0 21 Lab Test 04/26/24 20:20 04/26/24 15:48 Range/Units POC Glucose 172 H 70-106 mg/dl White Blood Count 9.8 4.4-10.8 10^3/uL Red Blood Count 4.87 4.0-5.20 10^6/uL Hemoglobin 14.8 12.2-16.2 g/dL Hematocrit 45.5 36.0-46.0 % Mean Corpuscular Volume 93.6 80.0-100.0 fL Mean Corpuscular Hemoglobin 30.4 28.0-32.0 pg Mean Corpuscular Hemoglobin Concent 32.5 32.0-36.0 g/dL Red Cell Distribution Width 16.4 H 11.8-14.3 % Platelet Count 405 140-450 10^3/uL Mean Platelet Volume 8.0 6.9-10.8 fL Neutrophils (%) (Auto) 83.5 H 37.0-80.0 % Lymphocytes (%) (Auto) 9.4 L 10.0-50.0 % Monocytes (%) (Auto) 6.5 0.0-12.0 % Eosinophils (%) (Auto) 0.4 0.0-7.0 % Basophils (%) (Auto) 0.2 0.0-2.0 % Neutrophils # (Auto) 8.2 1.6-8.6 10 ^3/uL Lymphocytes # (Auto) 0.9 0.4-5.4 10 ^3/uL Monocytes # (Auto) 0.6 0-1.3 10 ^3/uL Eosinophils # (Auto) 0 0-0.8 10 ^3/uL Basophils # (Auto) 0 0-0.2 10 ^3/uL Nucleated Red Blood Cells 0.1 % Sodium Level 140 136-145 mmol/L Potassium Level 4.0 3.5-5.1 mmol/L Chloride Level 105 98-107 mmol/L Carbon Dioxide Level 25 20-31 mmol/L Anion Gap 10 5-15 Blood Urea Nitrogen 18 9-23 mg/dL Creatinine 1.66 H 0.550-1.02 mg/dL Glomerular Filtration Rate Calc 33 >90 mL/min BUN/Creatinine Ratio 10.8 10.0-20.0 Serum Glucose 168 H 74-106 mg/dL Calcium Level 10.4 8.7-10.4 mg/dL Total Bilirubin 0.7 0.2-1.0 mg/dL Aspartate Amino Transferase (AST) 8 L 13-40 U/L Alanine Aminotransferase (ALT) < 9 7-40 U/L Alkaline Phosphatase 91 46-116 U/L Total Protein 8.0 5.7-8.2 g/dL Albumin 4.6 3.2-4.8 g/dL Time of 1ST Reevaluation: 15:35 Reevaluation 1ST: Unchanged Patient Education/Counseling: Diagnosis, Treatment Family Education/Counseling: No Family Present Departure 1 Departure Time of Disposition: 21:01 Impression: Primary Impression: Small bowel obstruction Disposition: ADMITTED INPATIENT Condition: Stable Critical Care Note Critical Care Time?: No Stability Stability form required: No Heart Score Heart Score: Heart Score Response (Comments) Value History N/A 0 EKG N/A 0 Age N/A 0 Risk Factors N/A 0 Troponin N/A 0 Total 0 I personally scribed for ORESTES BERRY MD ([email or web address]) on 04/26/24 at 16:17. E lectronically submitted by Ann Marie Atkinson ([email or web address]). I personally scribed for ORESTES BERRY MD ([email or web address]) on 04/26/24 at 21:00. Electr onically submitted by Randall Hoyt ([email or web address]). ORESTES BERRY MD Apr 26, 2024 16:17 LAMONTE RUVALCABA MD Apr 26, 2024 21:01
[2024-04-26 16:28] LABS: Alkaline Phosphatase 91 U/L (46-116); Carbon Dioxide 25 mmol/L (20-31); Chloride 105 mmol/L (98-107)
[2024-04-26 16:29] LABS: Albumin 4.6 g/dL (3.2-4.8); Anion Gap 10 (5-15); BUN/Creatinine Ratio 10.8 (10.0-20.0); Bilirubin, Total 0.7 mg/dL (0.2-1.0); Blood Urea Nitrogen 18 mg/dL (9-23); Sodium 140 mmol/L (136-145)
[2024-04-26 16:30] LABS: Alanine Aminotransferase < 9 U/L (7-40); Aspartate Aminotransferase 8 U/L (13-40); Calcium 10.4 mg/dL (8.7-10.4); Glucose 168 mg/dL (74-106)
[2024-04-26 17:00] VITALS: PULSE 111; RESP 20; O2SAT 95
--- NOTE | 2024-04-26 18:50 | DVH ---
Procedure: CT CT AB PEL WO CON-NO ORAL OR IV 04/26/2024 05:53 PM Indication: ABDOMINAL PAIN Comparison Study: None Technique: Axial images were obtained and reformatted in coronal and sagittal planes. All CT scans at this medical facility are performed using dose modulation techniques as appropriate to a performed e xam including the following: Automated exposure control was utilized; adjustment of the MA and/or KV according to patient size; and use of iterative reconstruction technique. CT Dose: CTDI volume is 23. 75 mGy. Dose-length product is 1116.89 mGy*cm FINDINGS: Lower Chest: Unremarkable. Hepatobiliary: Gallbladder is surgically absent. Spleen: Unremarkable. Pancreas: Unremarkable. Adrenal Glands: Unremarkable. tract: The kidneys are normal in size bilaterally without hydronephrosis . Few subcentimeter calc ifications are seen in both kidneys measuring up to 4 mm that may be nonobstructive calculi or vascul ar calcifications. Few subcentimeter left renal cysts are seen. The urinary bladder is unremarkable. GI tract: The stomach is grossly normal in appearance. Distended small bowel loops are seen throughou t the abdomen measuring up to 4.2 cm in caliber with transition point in the right lower quadrant. Di stal ileum is collapsed. There is descending and sigmoid diverticulosis without diverticulitis. The a ppendix is normal. Lymphatics: No mesenteric, retroperitoneal or periportal lymphadenopathy. Vasculature: The abdominal aorta is normal in caliber. Diffuse calcified plaque formation is noted. Pelvic Organs: The uterus is surgically absent. No adnexal lesion is identified. Bones/soft tissues: No acute abnormality. Other: None. IMPRESSION: 1. Small-bowel obstruction with transition point in the right lower quadrant. Recommend surgical cons ultation. Further evaluation with small-bowel series with water-soluble contrast could be completed i f clinically indicated.
[2024-04-26 19:18] VITALS: PULSE 109; O2SAT 97
[2024-04-26] MEDS: ONDANSETRON HCL 4 MG/2 ML VIAL IV ONE ×2 (21:20→22:30)
[2024-04-26] MEDS: MORPHINE SULFATE INJ 2 MG/ml SYRG IV ONE (21:22)
--- NOTE | 2024-04-26 21:58 | DVH ---
EXAM: XY CHEST XRAY 1 VIEW TECHNIQUE: Single frontal chest radiograph CLINICAL HISTORY: NG placement COMPARISON: CHEST PORTABLE on DOS: 08/01/20 Findings/Impression: Frontal chest radiograph demonstrates that the patient's facial structures are obscuring bilateral ap ices. No acute osseous or superficial soft tissue abnormalities. Enteric tube is overlying the plane of the stomach. The trachea is midline. The cardiac silhouette and mediastinum are within normal limits. Low lung volumes bronchovascular crowding. No pneumothorax, pleural effusions, or consolidations.
--- NOTE | 2024-04-26 22:18 | DVHHPRES ---
History of Present Illness Resident Creating Document: MORIAH QUACH RESDIENT History of Present Illness This is a 69-year-old female with past medical history of CVA, diabetes type 2, dyslipidemia, hypertension, mi, paroxysmal atrial fibrillation, and dementia brought to the hospital due to nausea and vomiting. Due to advanced dementia, the patient could not provide proper history. Per patient's caregiver (Luis) she has vomiting since last night, vomited 5 times, contents was food with no blood. Patient also reports abdominal pain. Patient denies fever, chest pain, shortness of breath, dysuria, constipation or diarrhea. Shows previously on hospice care, currently bed-bound due to previous CVA. PMHx: CVA, diabetes type 2, dyslipidemia, hypertension, mi, and dementia and paroxysmal atrial fibrillation and morbid obesity PSHx: Hysterectomy, cholecystectomy Family history: Noncontributory Social history: Patient has been bed-bound since 2 years due to previous CVA and advanced dementia, ex-smoker, denies any other drug use Home medication: Aspirin, atorvastatin, carvedilol, enalapril, furosemide, Ozempic, Eliquis, oxybutynin, and duloxetine Allergic history: No known allergies Review of Systems Review of Systems General: patient denies fever, fatigue, weaknes, sweating, any recent changes in appetite and weight HEENT: No headaches, visiual changes, hearing loss, tinnitus, nasal congestion and discharge, and sore throat. Cardiovascular: Denies chest pain, palpitations, dyspnea on exertion, orthopnea, or claudication. Respiratory: No cough, and wheezing. Gastrointestinal: Reports nausea, vomiting and abdominal pain Genitourinary: No dysuria, hematuria, discharge, frequency, urgency, nocturia, incontinence, and urinary retention. Endocrine: No heat or cold intolerance, polydipsia, polyuria, and polyphagia. Neurological: No dizziness, extremity weakness and numbness, tremors, gait disturbance, seizures, and memory impairment. Psychiatric: Denies depression, anxiety,or insomnia. Musculoskeletal: Denies neck pain, stiffness and swelling, back pain, muscle weakness, joint pain, stiffness, swelling, or limited range of motion. Skin: No rashes, itching, skin lesion, changes in hair, nail, skin texture and breast. Hematologic/Lymphatic: Denies easy bruising, bleeding tendencies, or lymph node enlargement. Allergies: Coded Allergies: NO KNOWN ALLERGIES (Unverified , 04/02/10) Exam Vital Signs Vital Signs Date Time Temp Pulse Resp B/P (MAP) Pulse Ox O2 Delivery O2 Flow Rate FiO2 04/26/24 21:22 99.0 109 20 116/81 (93) 94 99.0 04/26/24 19:18 Room Air* 0 21 Exam General Appearance: Alert, Cooperative, due to advanced dementia, orientation could not evaluated HEENT: Atraumatic, PERRLA, EOMI, Mucous membrane moist/pink Respiratory: Clear to auscultation, Normal air movement Cardiovascular: Mild abdominal tenderness Abdominal: Normal bowel sounds, Soft, No tenderness, No hepatospenomegaly, No masses Extremities: No clubbing, No cyanosis, No edema, Normal pulses, No tenderness/swelling Skin: No rashes, No breakdown, No significant lesion Neuro: Due to advanced dementia neurological exam could not performed Labs/Xrays Labs Test 04/26/24 20:20 04/26/24 15:48 Range/Units POC Glucose 172 H 70-106 mg/dl White Blood Count 9.8 4.4-10.8 10^3/uL Red Blood Count 4.87 4.0-5.20 10^6/uL Hemoglobin 14.8 12.2-16.2 g/dL Hematocrit 45.5 36.0-46.0 % Mean Corpuscular Volume 93.6 80.0-100.0 fL Mean Corpuscular Hemoglobin 30.4 28.0-32.0 pg Mean Corpuscular Hemoglobin Concent 32.5 32.0-36.0 g/dL Red Cell Distribution Width 16.4 H 11.8-14.3 % Platelet Count 405 140-450 10^3/uL Mean Platelet Volume 8.0 6.9-10.8 fL Neutrophils (%) (Auto) 83.5 H 37.0-80.0 % Lymphocytes (%) (Auto) 9.4 L 10.0-50.0 % Monocytes (%) (Auto) 6.5 0.0-12.0 % Eosinophils (%) (Auto) 0.4 0.0-7.0 % Basophils (%) (Auto) 0.2 0.0-2.0 % Neutrophils # (Auto) 8.2 1.6-8.6 10 ^3/uL Lymphocytes # (Auto) 0.9 0.4-5.4 10 ^3/uL Monocytes # (Auto) 0.6 0-1.3 10 ^3/uL Eosinophils # (Auto) 0 0-0.8 10 ^3/uL Basophils # (Auto) 0 0-0.2 10 ^3/uL Nucleated Red Blood Cells 0.1 % Sodium Level 140 136-145 mmol/L Potassium Level 4.0 3.5-5.1 mmol/L Chloride Level 105 98-107 mmol/L Carbon Dioxide Level 25 20-31 mmol/L Anion Gap 10 5-15 Blood Urea Nitrogen 18 9-23 mg/dL Creatinine 1.66 H 0.550-1.02 mg/dL Glomerular Filtration Rate Calc 33 >90 mL/min BUN/Creatinine Ratio 10.8 10.0-20.0 Serum Glucose 168 H 74-106 mg/dL Calcium Level 10.4 8.7-10.4 mg/dL Total Bilirubin 0.7 0.2-1.0 mg/dL Aspartate Amino Transferase (AST) 8 L 13-40 U/L Alanine Aminotransferase (ALT) < 9 7-40 U/L Alkaline Phosphatase 91 46-116 U/L Total Protein 8.0 5.7-8.2 g/dL Albumin 4.6 3.2-4.8 g/dL Assessment/Plan Assessment/Plan Small-bowel obstruction CT scan shows, small-bowel obstruction with transition point in the right lower quadrant Surgical consultation NPO NG tube with intermittent suction IV fluid, ringer lactate Empiric antibiotic, Flagyl and Rocephin Zofran Morbid obesity BMI is 41.7 Counseled nutrition Diabetes type 2 History of CVA Dyslipidemia Hypertension Dementia CKD grade 3B Continue home meds DIET: NPO DVT PROPHYLAXIS: Lovenox GI PROPHYLAXIS:: Protonix CODE STATUS: Full code DISPOSITION: Med/surge Patient's status and paln discussed with the patient and the patient's caregiver (Luis) Case discussed with Dr. Das Plan discussed with: Patient, Other (RN) My Orders Orders - MORIAH QUACH RESDIENT Procedure Category Date Status Time Electrocardigram EKG 04/26/24 Logged 22:06 Date of Service: Apr 26, 2024 Billing Provider: MARIELLE DAS MD Common Visit Codes: 07573-[id number] INP/OBS CARE (HIGH) Secondary Visit Codes: 67804-[id number] CARE PLAN 30 MINUTES MORIAH QUACH Apr 26, 2024 22:18 KOFI CLINTON RESIDENT Apr 27, 2024 00:58 MARIELLE DAS MD Apr 27, 2024 16:57
[2024-04-26] MEDS ORDERED: CIPROFLOXACIN 400MG/200ML 200 ML IV ONE (22:30)
[2024-04-26] MEDS: DEXTROSE (50%) 50ML SYRG IV ONE (22:30)
[2024-04-26] MEDS ORDERED: metroNIDAZOLE 500 MG TAB PO ONE (22:30)
[2024-04-26] MEDS: ACCU-CHEK COMFORT CURVE STRIP VI ONE (22:30)
[2024-04-26 22:43] LABS: Urine Bacteria FEW /hpf (None Seen); Urine Blood Negative /uL (Negative); Urine Clarity Turbid (Clear); Urine Color Yellow (Yellow); Urine Hyaline Cast MOD /lpf (0 - 2); Urine Mucus FEW (None Seen); Urine Protein, UAD 1+ (Negative); Urine Specific Gravity 1.019 (1.001-1.035); Urine Squamous Epithelial Cell MOD /hpf (<5); Urine Urobilinogen Normal (Negative); Urine WBC < 1 /HPF (0-5)
[2024-04-26 23:17] LABS: Amphetamine Screen, Urine Neg (NEGATIVE)
[2024-04-26] MEDS: cefTRIAXone 1GM/50ML D5W 50 ML IV ONE (23:18)
[2024-04-26] MEDS: InsuLIN REG 1unit/0.01ml Soln (100units/ml) SC ONE (23:19)
[2024-04-26] MEDS: PANTOPRAZOLE 40 MG/10 ML VIAL INJ IV ONE (23:30)
[2024-04-26 23:45] VITALS: BP 120/87; PULSE 108; TEMP 98.2; O2SAT 92
[2024-04-26 23:46] LABS: Barbiturate Scree,Urine Neg (NEGATIVE); Benzodiazephine Screen, Urine Neg (NEGATIVE); Cannabinoid Screen, Urine Neg (NEGATIVE); Cocaine Screen, Urine Neg (NEGATIVE); Opiate Scree,Urine Neg (NEGATIVE); Phencyclidine Screen, Urine Neg (NEGATIVE)
[2024-04-27] VITALS (8 sets, daily range): BP systolic 120–129; BP diastolic 73–94; PULSE 102–111; RESP 16–20; TEMP 97.6–98.2; O2SAT 92–95
--- NOTE | 2024-04-27 00:38 | ECG ---
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
[2024-04-27] MEDS: LACTATED RINGER'S 1,000 ML IV ONE (00:56)
[2024-04-27] MEDS ORDERED: SEMA4INJ SC (02:27)
[2024-04-27] MEDS: metroNIDAZOLE 500MG/100ML 100 ML IV SCH (05:15)
[2024-04-27] MEDS ORDERED: metroNIDAZOLE 500 MG TAB PO SCH (06:00)
[2024-04-27 06:39] LABS: Basophils # (auto) 0 10 ^3/uL (0-0.2); Basophils % (auto) 0.1 % (0.0-2.0); Eosinophils # (auto) 0.1 10 ^3/uL (0-0.8); Eosinophils % (auto) 0.9 % (0.0-7.0); Hematocrit 43.9 % (36.0-46.0); Hemoglobin 13.7 g/dL (12.2-16.2); Mean Corpuscular Hemoglobin 30.9 pg (28.0-32.0); Mean Corpuscular Hgb Conc. 31.3 g/dL (32.0-36.0); Mean Corpuscular Volume 98.8 fL (80.0-100.0); Monocytes # (auto) 0.8 10 ^3/uL (0-1.3); Monocytes % (auto) 10.6 % (0.0-12.0); Neutrophils # (auto) 5.9 10 ^3/uL (1.6-8.6); Neutrophils % (auto) 75.4 % (37.0-80.0); Nucleated Red Blood Cells % 0.1 %; Platelet Count (auto) 368 10^3/uL (140-450); Red Blood Cells 4.44 10^6/uL (4.0-5.20); Red Cell Distribution Width 16.9 % (11.8-14.3); White Blood Cell 7.8 10^3/uL (4.4-10.8)
[2024-04-27 06:51] LABS: INR 1.11 (0.9-1.15); Partial Thromboplastin Time 29.1 SEC (24.5-34.5); Prothrombin Time 11.6 sec (9.3-11.8)
[2024-04-27 06:52] LABS: Alanine Aminotransferase < 9 U/L (7-40); Albumin 4.4 g/dL (3.2-4.8); Alkaline Phosphatase 84 U/L (46-116); Anion Gap 11 (5-15); Aspartate Aminotransferase 14 U/L (13-40); BUN/Creatinine Ratio 9.9 (10.0-20.0); Bilirubin, Total 0.6 mg/dL (0.2-1.0); Blood Urea Nitrogen 19 mg/dL (9-23); Carbon Dioxide 25 mmol/L (20-31); Chloride 105 mmol/L (98-107); Glucose 151 mg/dL (74-106); Potassium 3.9 mmol/L (3.5-5.1); Sodium 141 mmol/L (136-145); Total Protein 7.6 g/dL (5.7-8.2)
--- NOTE | 2024-04-27 08:00 | DVHINCON2 ---
Date of service: Apr 27, 2024 Reason for Consultation small bowel obstruction History of Present Illness History Source: Patient, Notes HPI 69 year old female presented to the ED with complaint of abdominal pain for the past 3 days associated with nausea and vomiting. Patient complaint of abdominal pain this morning with nausea. Abdomen distended, tender to palpation. Patient states she did have previous abdominal surgeries in the past. She is currently bed bound due to CVA. Home Meds Reported Medications Semaglutide (Ozempic) 4 Mg/3 Ml Inj, 4 MG SC, INJ 04/27/24 Semaglutide (Ozempic) 4 Mg/3 Ml Inj, 4 MG SC, INJ 04/27/24 Glipizide (Glipizide) 10 Mg Tab, 1 TAB PO BID, #60 TAB 5 Refills 08/02/20 Atorvastatin Calcium (ATORVASTATIN CALCIUM) 20 Mg Tab, 1 TAB PO DAILY, #30 TAB 5 Refills 08/02/20 Cholecalciferol (VITAMIN D3) 2,000 Unit Tab, 5000 UNIT OR DAILY, TAB 08/02/20 Aspirin (Aspirin 81 Low Dose) 81 Mg Chw, 81 MG PO DAILY, TAB.CHEW 08/02/20 Carvedilol (Carvedilol) 3.125 Mg Tab, 1 TAB PO BID 04/02/10 Furosemide (Lasix) 40 Mg Tab, 1 TAB PO BID 04/02/10 Enalapril Maleate (Enalapril Maleate) 5 Mg Tab, 10 MG PO DAILY 04/02/10 Discontinued Reported Medications Metformin Hydrochloride (Metformin Hcl) 500 Mg Tab, 1000 MG PO BID 04/02/10 Chief Complaint of Abdominal/F: Abdominal pain, Nausea Location of Abdominal Onset: Generalized abdomen Timing of Abdominal Pain: Still present Past Medical History Cardiac: HTN, Other (dyslipidemia) Central Nervous System: CVA GI: No pertinent Hx Hemotology/Oncology: No pertinent Hx Hepatobiliary: No pertinent Hx Psychiatric: No pertinent Hx Musculoskeletal: No pertinent Hx Rheumotologic: No pertinent Hx Infectious Disease: No peritnent Hx ENT: No pertinent Hx Renal/: No pertinent Hx Endocrine: No pertinent Hx, NIDDM Dermatology: No pertinent Hx Past Surgical History: Cholecystectomy, Hysterctomy Patient Family History: Patient reports no known family medical history. Smoker: No Hx (Negative) Alocohol: None Drugs: None Lives with: With family Review of Systems Constitutional: No symptom reported Ears, Nose, & Throat: No symptom reported Eyes: No symptom reported Pulmonary/Respiratory: No symptom reported Cardiovascular: No symptom reported Gastrointestinal: Nausea, Vomiting, Abdominal Pain Genitourinary: No symptom reported Musculoskeletal: No symptom reported Skin: No symptom reported Psychiatric: No symptom reported Endocrine: No symptom reported Hemotologic/Lymphatic: No symptom reported H&P Exam Vital Signs Vital Signs Date Time Temp Pulse Resp B/P (MAP) Pulse Ox O2 Delivery O2 Flow Rate FiO2 04/27/24 05:00 98.2 105 19 122/84 (97) 93 98.2 04/27/24 00:55 Room Air* 0 21 General Appeara: Well developed, Well nourished, Normal Appearance Eye Exam: bilateral eye Normal inspection Nasal Exam: Normal inspection Pulmonary/Respiratory: Normal inspection, Normal breath sounds Cardiovascular/Chest: Normal inspection, Regular rate, Normal Rhythm Abdominal Exam: Other (tender , distended ) Abdominal Pain Onset Location: Generalized abdomen Tendon/ Neuro: Normal sensation TELECOM ANALYST Exam: Normal hearing Neuro/Mental St: Alert, Oriented Labs/Xrays Labs Test 04/27/24 06:20 04/26/24 23:04 04/26/24 23:00 04/26/24 22:28 Range/Units White Blood Count 7.8 4.4-10.8 10^3/uL Red Blood Count 4.44 4.0-5.20 10^6/uL Hemoglobin 13.7 12.2-16.2 g/dL Hematocrit 43.9 36.0-46.0 % Mean Corpuscular Volume 98.8 # 80.0-100.0 fL Mean Corpuscular Hemoglobin 30.9 28.0-32.0 pg Mean Corpuscular Hemoglobin Concent 31.3 L 32.0-36.0 g/dL Red Cell Distribution Width 16.9 H 11.8-14.3 % Platelet Count 368 140-450 10^3/uL Mean Platelet Volume 7.5 6.9-10.8 fL Neutrophils (%) (Auto) 75.4 37.0-80.0 % Lymphocytes (%) (Auto) 13.0 10.0-50.0 % Monocytes (%) (Auto) 10.6 0.0-12.0 % Eosinophils (%) (Auto) 0.9 0.0-7.0 % Basophils (%) (Auto) 0.1 0.0-2.0 % Neutrophils # (Auto) 5.9 1.6-8.6 10 ^3/uL Lymphocytes # (Auto) 1.0 0.4-5.4 10 ^3/uL Monocytes # (Auto) 0.8 0-1.3 10 ^3/uL Eosinophils # (Auto) 0.1 0-0.8 10 ^3/uL Basophils # (Auto) 0 0-0.2 10 ^3/uL Nucleated Red Blood Cells 0.1 % Prothrombin Time 11.6 9.3-11.8 sec Prothrombin Time INR 1.11 0.9-1.15 Activated Partial Thromboplast Time 29.1 24.5-34.5 SEC Sodium Level 141 136-145 mmol/L Potassium Level 3.9 3.5-5.1 mmol/L Chloride Level 105 98-107 mmol/L Carbon Dioxide Level 25 20-31 mmol/L Anion Gap 11 5-15 Blood Urea Nitrogen 19 9-23 mg/dL Creatinine 1.92 H 0.550-1.02 mg/dL Glomerular Filtration Rate Calc 28 >90 mL/min BUN/Creatinine Ratio 9.9 L 10.0-20.0 Serum Glucose 151 H 74-106 mg/dL Calcium Level 10.0 8.7-10.4 mg/dL Total Bilirubin 0.6 0.2-1.0 mg/dL Aspartate Amino Transferase (AST) 14 13-40 U/L Alanine Aminotransferase (ALT) < 9 7-40 U/L Alkaline Phosphatase 84 46-116 U/L Total Protein 7.6 5.7-8.2 g/dL Albumin 4.4 3.2-4.8 g/dL POC Glucose 196 H 70-106 mg/dl Lactic Acid Level 1.6 0.4-2.0 mmol/L Lactate Dehydrogenase 204 120-246 U/L Urine Color Yellow Yellow Urine Clarity Turbid H Clear Urine pH 5.0 5.0-9.0 Urine Specific [place] 1.019 1.001-1.035 Urine Protein 1+ H Negative Urine Ketones Trace Negative Urine Blood Negative Negative /uL Urine Nitrite Negative Negative Urine Bilirubin Negative Negative Urine Urobilinogen Normal Negative mg/dL Urine Leukocyte Esterase Negative Negative /uL Urine RBC 2 0 - 4 /hpf Urine Microscopic WBC < 1 0-5 /HPF Urine Squamous Epithelial Cells Mod <5 /hpf Urine Bacteria Few H None Seen /hpf Urine Hyaline Casts Mod 0 - 2 /lpf Urine Mucus Few None Seen Urine Glucose Normal Normal mg/dL Urine Opiates Screen Neg NEGATIVE Urine Fentanyl Screen Neg NEGATIVE Urine Barbiturates Screen Neg NEGATIVE Urine Phencyclidine Screen Neg NEGATIVE Urine Amphetamines Screen Neg NEGATIVE Urine Benzodiazepines Screen Neg NEGATIVE Urine Cocaine Screen Neg NEGATIVE Urine Cannabinoids Screen Neg NEGATIVE Test 04/26/24 15:48 Range/Units Magnesium Level 2.1 1.6-2.6 mg/dL Assessment/Plan Problem List: (1) History of hysterectomy (2) Hx of cholecystectomy (3) Abdominal pain (4) Nausea (5) Small bowel obstruction Primary Diagnosis small bowel obstruction Plan review of CT patient complaint of abdominal pain for the past 3 days associated with nausea and vomiting abdomen distended, tender to palpation no flatus or BM Plan: NG NG to LCS Small bowel series pending Notified Dr. Luna Plan discussed with: Patient, Other (Dr. Luna) Visit Coding Surgery Date of Service if different f: Apr 27, 2024 Billing Provider: DAVE LUNA MD Surgery Visit Codes: 98097 - INP CONSULT <80 MIN [facility] Apr 27, 2024 08:00
[2024-04-27] MEDS: cefTRIAXone 1GM/50ML D5W 50 ML IV SCH (09:16)
[2024-04-27] MEDS: PANTOPRAZOLE 40 MG/10 ML VIAL INJ IV SCH ×2 (09:16→21:34)
[2024-04-27] MEDS: ENOXAPARIN SOD 100 MG/1 ML SYRINGE SC SCH (09:17)
[2024-04-27] MEDS: GASTROGRAFIN 120 ML SOL ONE (09:38)
[2024-04-27] MEDS ORDERED: CIPROFLOXACIN 400MG/200ML 200 ML IV SCH (10:00)
[2024-04-27] MEDS ORDERED: ACETAMINOPHEN 500 MG TAB or CAP PO PRN (15:30)
--- NOTE | 2024-04-27 15:43 | DVHPNRES ---
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 Patient reports that she experienced abdominal pain, started 4 days back associated with intractable nausea and vomiting which was dark yellow but not bloody. Denies passing gas. She could not keep any solid food down but could keep liquid. Says it last bowel movement was 4 days back. She lives with caregiver and is bed-bound. Denies smoking drinking or illicit drug use. On arrival, patient was tachycardic but normotensive. CT scan abdomen completed, showed Small-bowel obstruction with transition point in the right lower quadrant. Recommend surgical consultation. Further evaluation with small- bowel series with water-soluble contrast could be completed if clinically indicated. NG tube was administered with suction, patient was kept NPO, surgeon was consulted recommended a small bowel series with Gastrografin which is pending. Past medical history: See above Past surgical history : Open cholecystectomy and hysterectomy Social history: Lives with caregiver, bed-bound for the past 2 years due to stroke, denies smoking drinking or drug use Home medication: Aspirin, atorvastatin, carvedilol, enalapril, furosemide, Ozempic, Eliquis, oxybutynin, and duloxetine Patient seen and examined at the bedside. Pending small bowel series with Gastrografin. Objective vital signs Vital Sign Date Time Temp Pulse Resp B/P (MAP) Pulse Ox O2 Delivery O2 Flow Rate FiO2 04/27/24 13:00 98.0 102 18 128/73 (91) 93 98.0 04/27/24 08:00 Room Air* 0 21 Total Intake and Output 04/26/24 04/26/24 04/27/24 15:00 23:00 07:00 Intake Total 100 ml Output Total 150 ml Balance -150 ml 100 ml medications Current Medications Medications Dose Ordered Sig/Murali Route Start Time Stop Time Status Last Admin Dose Admin Metronidazole 500 mg Q8HR PO 04/27/24 06:00 Cancel Ondansetron HCl 4 mg Q6HPRN PRN IV 04/26/24 22:30 Ceftriaxone Sodium 50 ml @ 100 mls/hr DAILY@09 IV 04/27/24 09:00 04/27/24 09:16 100 MLS/HR Metronidazole 100 ml @ 100 mls/hr Q8HR IV 04/27/24 06:00 04/27/24 13:53 100 MLS/HR Pantoprazole Sodium 40 mg DAILY IV 04/27/24 10:00 04/27/24 09:16 40 MG Examination Morbidly obese female patient lying in bed, in no acute distress General: Morbidly obese, afebrile, palor, mucosae are moist Cardiovascular: Regular S1 and S2. No murmurs, gallops or rubs. No JVD elevation. No pedal edema Respiratory: Normal B/L air entry on room air. Clear lung sounds on auscultation Abdomen: Abdomen is distended, absent bowel sounds, no rebound tenderness. Vertical scar seen. Genitourinary: Deferred MSK/skin: Mobilizes 4 limbs. Skin is dry and warm Neurological: No motor, no sensitive deficits, normal speech. Pupils are isocoric and reactive. Psych/Mental Status: A/Ox3 laboratory and microbiology Laboratory Tests 04/27/24 06:20 Test 04/27/24 06:20 Range/Units Serum Glucose 151 H 74-106 mg/dL Labs and/or images reviewed: Labs reviewed by me, Image(s) reviewed by me Problem List/Assessment/Plan Problem List/Assessment/Plan ? Complete Small-bowel obstruction Descending and sigmoid diverticulosis CT scan shows, small-bowel obstruction with transition point in the right lower quadrant Surgical consultation -recommended Gastrografin series Continue NG tube with intermittent suction, continue NPO Continue fluid resuscitation with NG tube Ambulation can not be performed as the patient is bed-bound Empiric antibiotics IV fluids Guzman IV Rocephin Diabetes mellitus type 2-hemoglobin A1c pending On ISS ANDIE likely vasomotor on CKD stage IIIB On IV fluids Monitor History of CVA and subdural hematoma 2018 Holding aspirin given the likelihood of GI bleed in the dark black NG output History of hypertension, currently normotensive Holding antihypertensives at this point History of dementia Monitor Morbid obesity BMI is 41.7 Diet: NPO DVT prophylaxis on hold until stool occult is negative, output is dark black. currently SCDs GI prophylaxis: Pantoprazole 40 mg IV b.i.d. Plan discussed with patient and caregiver essence at the bedside in which all questions have been answered Goals of care discussed with patient for more than 20 minutes, full code status Case discussed with Plan discussed with: Patient, Other (Caregiver at the bedside) My Orders My Orders Orders - MARK ARCE Procedure Category Date Status Time Building Insulation Supervisor ORDERS 04/27/24 Transmitted 10:44 Transfer Orders XFER 04/27/24 Transmitted 10:44 Tylenol 500mg PHA 04/27/24 Transmitted 15:30 [place] 5/325mg PHA 04/27/24 Transmitted 15:30 Morphine 1mg PHA 04/27/24 Transmitted 15:30 Gabapentin Capsule PHA 04/27/24 Verified (Neurontin Capsule) 22:00 Gabapentin Capsule PHA 04/27/24 Verified (Neurontin Capsule) 15:45 Date of Service: Apr 27, 2024 Billing Provider: SHAISTA MAIN MD Common Visit Codes: [id number] INP/OBS CARE(HIGH) MARK ARCE Apr 27, 2024 15:43 SHAISTA MAIN MD Apr 28, 2024 14:31
[2024-04-27] MEDS: GABAPENTIN 100 MG CAP PO ONE (16:00)
[2024-04-27] MEDS ORDERED: ACETAMINOPHEN IV 1000 MG/100ML (10MG/ML) IV ONE (16:00)
[2024-04-27] MEDS: MORPHINE SULFATE INJ 2 MG/ml SYRG IV PRN (16:18)
[2024-04-27] MEDS: SODIUM CHLORIDE 0.9% 1,000 ML IV SCH (16:45)
[2024-04-27] MEDS: ONDANSETRON HCL 4 MG/2 ML VIAL IV PRN (17:32)
--- NOTE | 2024-04-27 20:00 | DVH ---
Procedure: XY SMALL BOWEL SERIES-W GASTROGRA Reason for study/Clinical History: Small Bowel Obstructtion Comparison Study: None available at time of dictation. Technique: Single contrast small bowel series performed. Findings: Initial lump machine operator view of the abdomen and pelvis appears demonstrates no acute process. Contrast is identified within the colon by 4 hours This represents probable small bowel ileus. IMPRESSION: small bowel ileus
[2024-04-27] MEDS: GABAPENTIN 100 MG CAP PO SCH (20:28)
[2024-04-28] VITALS (8 sets, daily range): BP systolic 113–147; BP diastolic 66–101; PULSE 83–112; RESP 16–19; TEMP 97–98; O2SAT 90–100
[2024-04-28 06:31] LABS: Basophils # (auto) 0 10 ^3/uL (0-0.2); Basophils % (auto) 0.3 % (0.0-2.0); Eosinophils # (auto) 0 10 ^3/uL (0-0.8); Eosinophils % (auto) 0.2 % (0.0-7.0); Hematocrit 43.9 % (36.0-46.0); Lymphocytes # (auto) 0.8 10 ^3/uL (0.4-5.4); Lymphocytes % (auto) 9.3 % (10.0-50.0); Mean Corpuscular Hemoglobin 30.4 pg (28.0-32.0); Mean Corpuscular Volume 95.1 fL (80.0-100.0); Monocytes # (auto) 0.9 10 ^3/uL (0-1.3); Monocytes % (auto) 10.1 % (0.0-12.0); Neutrophils # (auto) 6.9 10 ^3/uL (1.6-8.6); Neutrophils % (auto) 80.1 % (37.0-80.0); Nucleated Red Blood Cells % 0.1 %; Platelet Count (auto) 378 10^3/uL (140-450); Red Blood Cells 4.61 10^6/uL (4.0-5.20); Red Cell Distribution Width 16.9 % (11.8-14.3); White Blood Cell 8.6 10^3/uL (4.4-10.8)
[2024-04-28 06:48] LABS: Anion Gap 12 (5-15); Carbon Dioxide 26 mmol/L (20-31)
[2024-04-28 06:49] LABS: Calcium 9.9 mg/dL (8.7-10.4)
[2024-04-28 06:54] LABS: BUN/Creatinine Ratio 11.7 (10.0-20.0)
[2024-04-28 06:56] LABS: Blood Urea Nitrogen 23 mg/dL (9-23); Chloride 109 mmol/L (98-107); Glucose 163 mg/dL (74-106); Potassium 3.5 mmol/L (3.5-5.1); Sodium 147 mmol/L (136-145)
[2024-04-28] MEDS ORDERED: POTASSIUM CHL 20MEQ/100ML 100 ML IV ONE (07:30)
[2024-04-28] MEDS ORDERED: LACTATED RINGER'S 1,000 ML IV SCH (07:30)
--- NOTE | 2024-04-28 09:56 | DVHPNRES ---
Progress Note Date Seen: Apr 28, 2024 Resident Creating Document: MARK ARCE RESIDENT Medical Necessity Reason Pt with a Central, PICC or Fol: No Subjective Review of Systems Julianna Gibbs is a 69-year-old female past medical history of paroxysmal atrial fibrillation on Eliquis, CVA 2016 with residual weakness, bed-bound, subdural hematoma 2018, carotid stenosis, right femoral DVT 2020, neuropathic, diabetes mellitus type 2, dementia, hyperlipidemia and hypertension who presented to the ER with a chief complaint of intractable nausea and vomiting. Patient reports that she experienced abdominal pain, started 4 days back associated with intractable nausea and vomiting which was dark yellow but not bloody. Denies passing gas. She could not keep any solid food down but could keep liquid. Says it last bowel movement was 4 days back. She lives with caregiver and is bed-bound. Denies smoking drinking or illicit drug use. On arrival, patient was tachycardic but normotensive. CT scan abdomen completed, showed Small-bowel obstruction with transition point in the right lower quadrant. Recommend surgical consultation. Further evaluation with small- bowel series with water-soluble contrast could be completed if clinically indicated. NG tube was administered with suction, patient was kept NPO, surgeon was consulted recommended a small bowel series with Gastrografin which is pending. Past medical history: See above Past surgical history : Open cholecystectomy and hysterectomy Social history: Lives with caregiver, bed-bound for the past 2 years due to stroke, denies smoking drinking or drug use Home medication: Aspirin, atorvastatin, carvedilol, enalapril, furosemide, Ozempic, Eliquis, oxybutynin, and duloxetine 04/27-Patient seen and examined at the bedside. Pending small bowel series with Gastrografin. Had a small smear like bowel movement. 04/28-patient seen and examined at bedside. Gastrografin completed, contrast identified within the colon by 4 hours. Radiologist read as small bowel ileus. Patient had 2 episodes of watery yellowish emesis in p.m. yesterday, 1 episode of yellowish emesis at 4:00 a.m. this morning. Not passing gas, absent bowel movement. No bowel movements. Spoke to Dr. Luna , recommended continuing conservative measures. Objective vital signs Vital Sign Date Time Temp Pulse Resp B/P (MAP) Pulse Ox O2 Delivery O2 Flow Rate FiO2 04/28/24 09:00 97.4 108 18 128/89 102 90 97.4 04/28/24 08:00 Room Air* 0 21 Total Intake and Output 04/27/24 04/27/24 04/28/24 15:00 23:00 07:00 Intake Total 150 ml 100 ml 100 ml Output Total 350 ml 200 ml Balance 150 ml -250 ml -100 ml medications Current Medications Medications Dose Ordered Sig/Murali Route Start Time Stop Time Status Last Admin Dose Admin Metronidazole 500 mg Q8HR PO 04/27/24 06:00 Cancel Ondansetron HCl 4 mg Q6HPRN PRN IV 04/26/24 22:30 04/28/24 09:27 4 MG Ceftriaxone Sodium 50 ml @ 100 mls/hr DAILY@09 IV 04/27/24 09:00 04/28/24 09:09 100 MLS/HR Metronidazole 100 ml @ 100 mls/hr Q8HR IV 04/27/24 06:00 04/28/24 05:41 100 MLS/HR Acetaminophen 500 mg Q4HPRN PRN PO 04/27/24 15:30 Acetaminophen/ Hydrocodone Bitart 1 tab Q4HPRN PRN PO 04/27/24 15:30 Morphine Sulfate 1 mg Q4HPRN PRN IV 04/27/24 15:30 04/27/24 20:37 1 MG Gabapentin 100 mg BID PO 04/27/24 22:00 Pantoprazole Sodium 40 mg BID IV 04/27/24 22:00 04/28/24 09:11 40 MG Lactated Ringer's 1,000 ml @ 75 mls/hr [id number] IV 04/28/24 07:30 Examination Morbidly obese female patient lying in bed, in no acute distress General: Morbidly obese, afebrile, palor, mucosae are moist Cardiovascular: Regular S1 and S2. No murmurs, gallops or rubs. No JVD elevation. No pedal edema Respiratory: Normal B/L air entry on room air. Clear lung sounds on auscultation Abdomen: Abdomen is distended, tender and soft, absent bowel sounds, no rebound tenderness. Vertical scar seen. Genitourinary: Deferred MSK/skin: Mobilizes 4 limbs. Skin is dry and warm Neurological: No motor, no sensitive deficits, normal speech. Pupils are isocoric and reactive. Psych/Mental Status: A/Ox3 laboratory and microbiology Laboratory Tests 04/28/24 05:40 Test 04/28/24 05:40 Range/Units Serum Glucose 163 H 74-106 mg/dL Labs and/or images reviewed: Labs reviewed by me, Image(s) reviewed by me Problem List/Assessment/Plan Problem List/Assessment/Plan 04/28-patient seen and examined at bedside. Gastrografin completed, contrast identified within the colon by 4 hours. Radiologist read as small bowel ileus. Patient had 2 episodes of watery yellowish emesis in p.m. yesterday, 1 episode of yellowish emesis at 4:00 a.m. this morning. Not passing gas, absent bowel movement. No bowel movements. Spoke to Dr. Luna , recommended continuing conservative measures. H&H stable. Abdomen is soft but tender. Probable small bowel ileus ? Complete Small-bowel obstruction Descending and sigmoid diverticulosis CT scan shows, small-bowel obstruction with transition point in the right lower quadrant Surgical consultation -recommended continued conservative measures Continue NG tube with intermittent suction, continue NPO Continue fluid resuscitation with NG tube Ambulation can not be performed as the patient is bed-bound Empiric antibiotics IV fluids Guzman IV Rocephin X-ray small bowel series with Gastrografin shows Contrast is identified within the colon by 4 hours This represents probable small bowel ileus. Diabetes mellitus type 2-hemoglobin A1c pending On ISS ANDIE likely vasomotor on CKD stage IIIB On IV fluids Monitor History of CVA and subdural hematoma 2018 Holding aspirin given the likelihood of GI bleed in the dark black NG output History of hypertension, currently normotensive Holding antihypertensives at this point History of dementia Monitor Morbid obesity BMI is 41.7 Diet: NPO DVT prophylaxis on hold until stool occult is negative, output is dark black. currently SCDs GI prophylaxis: Pantoprazole 40 mg IV b.i.d. Plan discussed with patient and caregiver essence at the bedside in which all questions have been answered Goals of care discussed with patient for more than 20 minutes, full code status Case discussed with Plan discussed with: Patient My Orders My Orders Orders - MARK ARCE RESIDENT Procedure Category Date Status Time [employer] ORDERS 04/27/24 Transmitted 10:44 Transfer Orders XFER 04/27/24 Transmitted 10:44 Acetaminophen Tab Or PHA 04/27/24 In Process Cap (Tylenol Tablet 15:30 Hydrocodone-Acet PHA 04/27/24 In Process 5/325mg Tab ([place] 15:30 Morphine Sulfate PHA 04/27/24 In Process Injection 15:30 Gabapentin Capsule PHA 04/27/24 In Process (Neurontin Capsule) 22:00 Pantoprazole PHA 04/27/24 In Process (Protonix) 22:00 Stool Occult Blood LAB 04/27/24 Logged 16:41 Lactated Ringer's PHA 04/28/24 In Process 07:30 Potassium Chl PHA 04/28/24 In Process 20meq/50ml (Potassium 10:00 Sodium Chl 0.9% PHA 04/28/24 In Process (Sodium Chloride) 10:00 Date of Service: Apr 28, 2024 Billing Provider: SHAISTA MAIN MD Common Visit Codes: [id number] INP/OBS CARE(HIGH) MARK ARCE RESIDENT Apr 28, 2024 09:56 SHAISTA MAIN MD Apr 28, 2024 14:30
[2024-04-28] MEDS: SODIUM CHL 0.9% 100 ML IV ONE (10:00)
[2024-04-28] MEDS: POTASSIUM CHL 20MEQ/50ML 50 ML IV ONE (13:08)
--- NOTE | 2024-04-28 13:36 | DVHPN2 ---
Progress Note - Dictate Date Seen: Apr 28, 2024 Medical Necessity Reason Pt with a Central, PICC or Fol: No Subjective E: no major events o/n. c/o mild nausea in AM. vital signs Vital Sign Date Time Temp Pulse Resp B/P (MAP) Pulse Ox O2 Delivery O2 Flow Rate FiO2 04/28/24 09:00 97.4 108 18 128/89 (102) 90 97.4 04/28/24 08:00 Room Air* 0 21 Total Intake and Output 04/27/24 04/27/24 04/28/24 15:00 23:00 07:00 Intake Total 150 ml 100 ml 100 ml Output Total 350 ml 200 ml Balance 150 ml -250 ml -100 ml medications Current Medications Medications Dose Ordered Sig/Murali Route Start Time Stop Time Status Last Admin Dose Admin Metronidazole 500 mg Q8HR PO 04/27/24 06:00 Cancel Ondansetron HCl 4 mg Q6HPRN PRN IV 04/26/24 22:30 04/28/24 09:27 4 MG Ceftriaxone Sodium 50 ml @ 100 mls/hr DAILY@09 IV 04/27/24 09:00 04/28/24 09:09 100 MLS/HR Metronidazole 100 ml @ 100 mls/hr Q8HR IV 04/27/24 06:00 04/28/24 05:41 100 MLS/HR Acetaminophen 500 mg Q4HPRN PRN PO 04/27/24 15:30 Acetaminophen/ Hydrocodone Bitart 1 tab Q4HPRN PRN PO 04/27/24 15:30 Morphine Sulfate 1 mg Q4HPRN PRN IV 04/27/24 15:30 04/27/24 20:37 1 MG Gabapentin 100 mg BID PO 04/27/24 22:00 Pantoprazole Sodium 40 mg BID IV 04/27/24 22:00 04/28/24 09:11 40 MG Lactated Ringer's 1,000 ml @ 125 mls/hr Q8H IV 04/28/24 13:15 UNV objective GEN: NAD ABD: soft but distended with diffuse TTP. no BM. laboratory and microbiology Laboratory Tests 04/28/24 05:40 Test 04/28/24 05:40 Range/Units Serum Glucose 163 H 74-106 mg/dL Assessment/Plan A: 1. ileus vs pSBO P: 1. SBFT shows contrast in colon at 4 hrs but still with symptoms. repeat KUB Plan discussed with: Patient DAVE DE SANTIAGO MD Apr 28, 2024 13:36
--- NOTE | 2024-04-28 13:53 | DVH ---
EXAM: XY KUB ABDOMEN SINGLE VIEW HISTORY: sbo COMPARISON: None TECHNIQUE: Single AP of the abdomen and pelvis was obtained. Findings: Frontal view of the abdomen demonstrates multiple dilated loops of bowel with residual contrast. No definite evidence contrast within the colon. No visualized renal calculi. There is no evidence of an acute fracture, dislocation, blastic, or lytic lesions. The visualized portions of the lung bases are unremarkable. No radiopaque foreign bodies. No superficial soft tissue abnormalities. Impression: 1. Multiple loops of dilated bowel favored to reflect a bowel obstruction.
--- NOTE | 2024-04-28 14:49 | DVH ---
EXAM: XY CHEST PORTABLE TECHNIQUE: Single frontal chest radiograph CLINICAL HISTORY: NGT placement. tube was advanced. COMPARISON: XY CHEST XRAY 1 VIEW on DOS: 04/26/24, CHEST PORTABLE on DOS: 08/01/20 Findings/Impression: Frontal chest radiograph demonstrates no acute osseous or superficial soft tissue abnormalities. Enteric tube is overlying the plane of the stomach. The trachea is midline. The cardiac silhouette and mediastinum are within normal limits. Low lung volumes with bronchovascular crowding. No pneumothorax, pleural effusions, or consolidations.
[2024-04-28] MEDS: LACTATED RINGER'S 1,000 ML IV SCH (16:37)
[2024-04-29] VITALS (7 sets, daily range): BP systolic 127–142; BP diastolic 84–90; PULSE 95–102; RESP 18–19; TEMP 96.8–97.7; O2SAT 88–93
--- NOTE | 2024-04-29 10:37 | DVHPN2 ---
Progress Note - Dictate Date Seen: Apr 29, 2024 Medical Necessity Reason Pt with a Central, PICC or Fol: No Subjective E: no major events o/n. c/o abd pain. no BM. vital signs Vital Sign Date Time Temp Pulse Resp B/P (MAP) Pulse Ox O2 Delivery O2 Flow Rate FiO2 04/29/24 09:10 95 18 128/90 04/29/24 05:00 96.8 90 96.8 04/28/24 20:00 Room Air* 0 21 Total Intake and Output 04/28/24 04/28/24 04/29/24 15:00 23:00 07:00 Intake Total 50 ml 200 ml 100 ml Output Total 350 ml 400 ml Balance 50 ml -150 ml -300 ml medications Current Medications Medications Dose Ordered Sig/Murali Route Start Time Stop Time Status Last Admin Dose Admin Metronidazole 500 mg Q8HR PO 04/27/24 06:00 Cancel Ondansetron HCl 4 mg Q6HPRN PRN IV 04/26/24 22:30 04/28/24 20:46 4 MG Ceftriaxone Sodium 50 ml @ 100 mls/hr DAILY@09 IV 04/27/24 09:00 04/29/24 09:09 100 MLS/HR Metronidazole 100 ml @ 100 mls/hr Q8HR IV 04/27/24 06:00 04/29/24 05:26 100 MLS/HR Acetaminophen 500 mg Q4HPRN PRN PO 04/27/24 15:30 Acetaminophen/ Hydrocodone Bitart 1 tab Q4HPRN PRN PO 04/27/24 15:30 Morphine Sulfate 1 mg Q4HPRN PRN IV 04/27/24 15:30 04/29/24 09:10 1 MG Gabapentin 100 mg BID PO 04/27/24 22:00 Pantoprazole Sodium 40 mg BID IV 04/27/24 22:00 04/29/24 09:09 40 MG Lactated Ringer's 1,000 ml @ 125 mls/hr Q8H IV 04/28/24 13:15 04/29/24 05:25 125 MLS/HR objective GEN: NAD ABD: soft but distended with diffuse TTP. no BM. laboratory and microbiology Laboratory Tests 04/28/24 05:40 Test 04/28/24 05:40 Range/Units Serum Glucose 163 H 74-106 mg/dL Assessment/Plan A: 1. ileus vs SBO P: 1. SBFT shows contrast in colon at 4 hrs but reviewing the film, it is questionable. will get CT abd/pelvis today to confirm. Dietary Evaluation Review Comments: 1) Continue to monitor bowel activity. If patient remains NPO for more than 7 days, consider TPN to meet at least 75% of estimated needs 2) Consult surgery 3) Advance to clear liquid diet and progress to low-fiber diet when medically feasible, pending DOCUMENT MANAGEMENT TECHNICIAN approval 3) Refer to outpatient RD/CD[facility] for weight management Expected Outcomes/Goals: 1) Receive nutrition within 7 days 2) GI symptoms to resolve 3) appetite and labs to improve 4) diet to advance Plan discussed with: Patient DAVE DE SANTIAGO MD Apr 29, 2024 10:37
[2024-04-29] MEDS: metroNIDAZOLE 500MG/100ML 100 ML IV ONE (13:37)
[2024-04-29] MEDS: MORPHINE SULFATE INJ 2 MG/ml SYRG IV PRN (13:38)
--- NOTE | 2024-04-29 22:29 | DVH ---
Exam: CT CT AB PEL WO CON-NO ORAL OR IV History: sbo Comparison Study: None available at time of dictation. TECHNIQUE: Multidetector CT of the abdomen was performed from lung bases to pubic symphysis. Imaging was performed without IV contrast. Axial, coronal and sagittal multiplanar reformats were obtained fr om the axial data set by the technologist. Radiation Dose Information: CT Dose: CTDI volume is 21.7 mGy. Dose-length product is 1025.3 mGy*cm FINDINGS: Evaluation of solid organs is limited due to lack of intravenous contrast use. Findings: Lung Bases: No acute or significant lung base finding. Normal heart size. No pleural or pericardial effusion. Liver: The liver is normal in size. No focal lesions. Gallbladder and Biliary Tree: Gallbladder has been surgically removed. Spleen: Unremarkable Pancreas: The pancreas is grossly normal in appearance. Adrenal Glands: Unremarkable Kidneys: Kidneys are grossly normal without calculi or hydronephrosis. Bladder: [place] catheter in the bladder Bowel: The stomach is grossly normal in appearance. Enteric tube in the stomach Small bowel and colon are normal in caliber and distribution. Contrast noted mildly dilated small bowel and throughout the colon the rectum there are no findings to suggest bowel obstruction The appendix is not visualized; however, no secondary findings of acute appendicitis identified. Ascites: Absent Lymphadenopathy: No mesenteric, retroperitoneal or periportal lymphadenopathy. Abdominal Wall and Mesentery: Unremarkable. Vasculature: The visualized abdominal aorta is normal in size and caliber. Evaluation of abdominal a nd pelvic vessels is limited due to lack of intravenous contrast. Pelvic Organs: Unremarkable Musculoskeletal: No aggressive focal bony lesions, acute fractures or dislocation. Soft tissues: Unremarkable IMPRESSION: 1. No findings to suggest bowel obstruction. Findings may represent ileus. 2. Punctate nonobstructing renal calculi bilaterally. 3. Pancreas appears normal 4. 3 cm round pulmonary consolidation right posterior costophrenic angle. 5. Enteric tube in the stomach. Radiation optimization: All CT scans at this facility use at least one of these dose optimization catalina hniques: automated exposure control mA and/or kV adjustment per patient size (includes targeted exam s where dose is matched to clinical indication) or iterative reconstruction. HS:Y
--- NOTE | 2024-04-29 22:33 | DVHPN2 ---
Subjective The patient seen and examined at bedside. No complains today. Reviewed: Care Plan, H&P, Labs, Medications, Previous Orders, Radiology Changes from previous H/P or p: No Changes Objective Vitals Vital Signs Date Time Temp Pulse Resp B/P (MAP) Pulse Ox O2 Delivery O2 Flow Rate FiO2 04/29/24 21:00 97.1 102 19 135/84 (101) 90 97.1 04/29/24 08:00 Room Air* 0 21 Intake/Output Intake and Output 04/29/24 07:00 Intake Total 350 ml Output Total 750 ml Balance -400 ml Intake Oral 0 ml IV Total 350 ml Output Urine Total 750 ml General Appearance: Alert, Oriented X3, Cooperative, No acute distress HEENT: Atraumatic, PERRLA, EOMI, Mucous membr. moist/pink Neck: Supple Lungs: Clear to auscultation, Normal air movement Cardiovascular: Regular rate, Normal S1, Normal S2, No murmurs, Gallops, Rubs Abdomen: Normal bowel sounds, Soft, No tenderness Neuro: Cranial nerves 3-12 NL Psych/Mental Status: Mental status NL Medications Current Medications Medications Dose Ordered Sig/Murali Route Start Time Stop Time Status Last Admin Dose Admin Metronidazole 500 mg Q8HR PO 04/27/24 06:00 Cancel Ondansetron HCl 4 mg Q6HPRN PRN IV 04/26/24 22:30 04/28/24 20:46 4 MG Ceftriaxone Sodium 50 ml @ 100 mls/hr DAILY@09 IV 04/27/24 09:00 04/29/24 09:09 100 MLS/HR Metronidazole 100 ml @ 100 mls/hr Q8HR IV 04/27/24 06:00 04/29/24 22:01 100 MLS/HR Acetaminophen 500 mg Q4HPRN PRN PO 04/27/24 15:30 Acetaminophen/ Hydrocodone Bitart 1 tab Q4HPRN PRN PO 04/27/24 15:30 Gabapentin 100 mg BID PO 04/27/24 22:00 Pantoprazole Sodium 40 mg BID IV 04/27/24 22:00 04/29/24 22:01 40 MG Lactated Ringer's 1,000 ml @ 125 mls/hr Q8H IV 04/28/24 13:15 04/29/24 21:41 125 MLS/HR Morphine Sulfate 2 mg Q4HPRN PRN IV 04/29/24 12:15 04/29/24 13:38 2 MG Laboratory Results Laboratory Tests 04/28/24 05:40 Urinalysis Test 04/26/24 22:28 Urine Color Yellow (Yellow) Urine Clarity Turbid (Clear) H Urine pH 5.0 (5.0-9.0) Urine Specific [place] 1.019 (1.001-1.035) Urine Protein 1+ (Negative) H Urine Ketones Trace (Negative) Urine Blood Negative /uL (Negative) Urine Nitrite Negative (Negative) Urine Bilirubin Negative (Negative) Urine Urobilinogen Normal mg/dL (Negative) Urine Leukocyte Esterase Negative /uL (Negative) Urine RBC 2 /hpf (0 - 4) Urine Microscopic WBC < 1 /HPF (0-5) Urine Squamous Epithelial Cells Mod /hpf (<5) Urine Bacteria Few /hpf (None Seen) H Urine Hyaline Casts Mod /lpf (0 - 2) Urine Mucus Few (None Seen) Urine Glucose Normal mg/dL (Normal) Labs and/or images reviewed: Labs reviewed by me Assessment/Plan Assessment/Plan 04/28-patient seen and examined at bedside. Gastrografin completed, contrast identified within the colon by 4 hours. Radiologist read as small bowel ileus. Patient had 2 episodes of watery yellowish emesis in p.m. yesterday, 1 episode of yellowish emesis at 4:00 a.m. this morning. Not passing gas, absent bowel movement. No bowel movements. Spoke to Dr. Luna , recommended continuing conservative measures. H&H stable. Abdomen is soft but tender. Probable small bowel ileus ? Complete Small-bowel obstruction Descending and sigmoid diverticulosis CT scan shows, small-bowel obstruction with transition point in the right lower quadrant Surgical consultation -recommended continued conservative measures Continue NG tube with intermittent suction, continue NPO Continue fluid resuscitation with NG tube Ambulation can not be performed as the patient is bed-bound Empiric antibiotics IV fluids Guzman IV Rocephin X-ray small bowel series with Gastrografin shows Contrast is identified within the colon by 4 hours This represents probable small bowel ileus. Diabetes mellitus type 2-hemoglobin A1c pending On ISS ANDIE likely vasomotor on CKD stage IIIB On IV fluids Monitor History of CVA and subdural hematoma 2018 Holding aspirin given the likelihood of GI bleed in the dark black NG output History of hypertension, currently normotensive Holding antihypertensives at this point History of dementia Monitor Morbid obesity BMI is 41.7 Diet: NPO DVT prophylaxis on hold until stool occult is negative, output is dark black. currently SCDs GI prophylaxis: Pantoprazole 40 mg IV b.i.d. Plan discussed with patient and caregiver essence at the bedside in which all questions have been answered full code status Plan discussed with: Patient Date of Service: Apr 29, 2024 Billing Provider: SHAISTA MAIN MD Common Visit Codes: [id number] INP/OBS CARE(HIGH) SHAISTA MAIN MD Apr 29, 2024 22:33
[2024-04-30] VITALS (8 sets, daily range): BP systolic 118–161; BP diastolic 79–94; PULSE 88–130; RESP 18–20; TEMP 97.4–98.5; O2SAT 91–95
--- NOTE | 2024-04-30 06:40 | DVH ---
EXAM: XR Chest, 1 View CLINICAL INDICATION: NG TUBE PLACEMENT TECHNIQUE: Frontal view of the chest. COMPARISON: XY CHEST PORTABLE on DOS: 04/28/24, XY CHEST XRAY 1 VIEW on DOS: 04/26/24, CHEST PORTABLE on DOS: 08/01/20 FINDINGS: LUNGS AND PLEURAL SPACES: Pulmonary venous congestion. No consolidation. No pneumothorax. HEART: Unremarkable. No cardiomegaly. MEDIASTINUM: Unremarkable. Normal mediastinal contour. BONES/JOINTS: Unremarkable. No acute fracture. TUBES, LINES AND DEVICES: Enteric tube is in the stomach. OTHER FINDINGS: . IMPRESSION: 1. Enteric tube is in the stomach. 2. Pulmonary venous congestion.
[2024-04-30 10:26] LABS: Basophils # (auto) 0 10 ^3/uL (0-0.2); Basophils % (auto) 0.3 % (0.0-2.0); Eosinophils # (auto) 0.1 10 ^3/uL (0-0.8); Hemoglobin 13.9 g/dL (12.2-16.2); Lymphocytes % (auto) 10.3 % (10.0-50.0); Mean Corpuscular Hemoglobin 30.6 pg (28.0-32.0); Mean Corpuscular Hgb Conc. 32.4 g/dL (32.0-36.0); Mean Corpuscular Volume 94.4 fL (80.0-100.0); Monocytes # (auto) 0.9 10 ^3/uL (0-1.3); Monocytes % (auto) 9.4 % (0.0-12.0); Neutrophils # (auto) 7.5 10 ^3/uL (1.6-8.6); Nucleated Red Blood Cells % 0.1 %; Platelet Count (auto) 392 10^3/uL (140-450); Red Blood Cells 4.55 10^6/uL (4.0-5.20); Red Cell Distribution Width 16.2 % (11.8-14.3); White Blood Cell 9.4 10^3/uL (4.4-10.8)
[2024-04-30 10:28] LABS: INR 1.13 (0.9-1.15); Partial Thromboplastin Time 26.2 SEC (24.5-34.5); Prothrombin Time 11.8 sec (9.3-11.8)
[2024-04-30 10:49] LABS: Anion Gap 13 (5-15); Carbon Dioxide 24 mmol/L (20-31)
[2024-04-30 10:50] LABS: Calcium 9.7 mg/dL (8.7-10.4)
[2024-04-30 10:56] LABS: BUN/Creatinine Ratio 15.5 (10.0-20.0)
[2024-04-30 11:06] LABS: Blood Urea Nitrogen 23 mg/dL (9-23); Chloride 115 mmol/L (98-107); Glucose 149 mg/dL (74-106); Potassium 3.4 mmol/L (3.5-5.1); Sodium 152 mmol/L (136-145)
--- NOTE | 2024-04-30 12:42 | DVHPN2 ---
Progress Note - Dictate Date Seen: Apr 30, 2024 Medical Necessity Reason Pt with a Central, PICC or Fol: No Subjective E: no major events o/n. no complaints. vital signs Vital Sign Date Time Temp Pulse Resp B/P (MAP) Pulse Ox O2 Delivery O2 Flow Rate FiO2 04/30/24 09:00 98.3 96 20 138/93 (108) 94 98.3 04/30/24 08:00 Nasal Cannula* 2 28 Total Intake and Output 04/29/24 04/29/24 04/30/24 15:00 23:00 07:00 Intake Total 0 ml 100 ml Output Total 550 ml Balance -550 ml 100 ml medications Current Medications Medications Dose Ordered Sig/Murali Route Start Time Stop Time Status Last Admin Dose Admin Metronidazole 500 mg Q8HR PO 04/27/24 06:00 Cancel Ondansetron HCl 4 mg Q6HPRN PRN IV 04/26/24 22:30 04/29/24 22:40 4 MG Ceftriaxone Sodium 50 ml @ 100 mls/hr DAILY@09 IV 04/27/24 09:00 04/30/24 08:21 100 MLS/HR Metronidazole 100 ml @ 100 mls/hr Q8HR IV 04/27/24 06:00 04/30/24 06:02 100 MLS/HR Acetaminophen 500 mg Q4HPRN PRN PO 04/27/24 15:30 Acetaminophen/ Hydrocodone Bitart 1 tab Q4HPRN PRN PO 04/27/24 15:30 Gabapentin 100 mg BID PO 04/27/24 22:00 Pantoprazole Sodium 40 mg BID IV 04/27/24 22:00 04/30/24 08:21 40 MG Lactated Ringer's 1,000 ml @ 125 mls/hr Q8H IV 04/28/24 13:15 04/30/24 06:15 125 MLS/HR Morphine Sulfate 2 mg Q4HPRN PRN IV 04/29/24 12:15 04/30/24 04:27 2 MG objective GEN: NAD ABD: softer. much less TTP than yesterday. no BM. CT ABD/PELVIS: no SBO. contrast in colon. laboratory and microbiology Laboratory Tests 04/30/24 09:54 Test 04/30/24 09:54 Range/Units Serum Glucose 149 H 74-106 mg/dL Assessment/Plan A: 1. slowly resolving pSBO vs ileus. P: 1. clamp NGT 2. if no N/V, DC NGT tomorrow and start clear liquid diet. Dietary Evaluation Review Comments: 1) Continue to monitor bowel activity. If patient remains NPO for more than 7 days, consider TPN to meet at least 75% of estimated needs 2) Consult surgery 3) Advance to clear liquid diet and progress to low-fiber diet when medically feasible, pending SUPERVISOR PUTTY AND CALUKING approval 3) Refer to outpatient RD/CDCES for weight management Expected Outcomes/Goals: 1) Receive nutrition within 7 days 2) GI symptoms to resolve 3) appetite and labs to improve 4) diet to advance Plan discussed with: Patient DAVE DE SANTIAGO MD Apr 30, 2024 12:42
--- NOTE | 2024-04-30 17:12 | DVHPNRES ---
Progress Note Date Seen: Apr 30, 2024 Resident Creating Document: MARK ARCE RESIDENT Medical Necessity Reason Pt with a Central, PICC or Fol: No Subjective Review of Systems Julianna Gibbs is a 69-year-old female past medical history of paroxysmal atrial fibrillation on Eliquis, CVA 2016 with residual weakness, bed-bound, subdural hematoma 2018, carotid stenosis, right femoral DVT 2020, neuropathic, diabetes mellitus type 2, dementia, hyperlipidemia and hypertension who presented to the ER with a chief complaint of intractable nausea and vomiting. Patient reports that she experienced abdominal pain, started 4 days back associated with intractable nausea and vomiting which was dark yellow but not bloody. Denies passing gas. She could not keep any solid food down but could keep liquid. Says it last bowel movement was 4 days back. She lives with caregiver and is bed-bound. Denies smoking drinking or illicit drug use. On arrival, patient was tachycardic but normotensive. CT scan abdomen completed, showed Small-bowel obstruction with transition point in the right lower quadrant. Recommend surgical consultation. Further evaluation with small- bowel series with water-soluble contrast could be completed if clinically indicated. NG tube was administered with suction, patient was kept NPO, surgeon was consulted recommended a small bowel series with Gastrografin which is pending. Past medical history: See above Past surgical history : Open cholecystectomy and hysterectomy Social history: Lives with caregiver, bed-bound for the past 2 years due to stroke, denies smoking drinking or drug use Home medication: Aspirin, atorvastatin, carvedilol, enalapril, furosemide, Ozempic, Eliquis, oxybutynin, and duloxetine 04/27-Patient seen and examined at the bedside. Pending small bowel series with Gastrografin. Had a small smear like bowel movement. 04/28-patient seen and examined at bedside. Gastrografin completed, contrast identified within the colon by 4 hours. Radiologist read as small bowel ileus. Patient had 2 episodes of watery yellowish emesis in p.m. yesterday, 1 episode of yellowish emesis at 4:00 a.m. this morning. Not passing gas, absent bowel movement. No bowel movements. Spoke to Dr. Luna , recommended continuing conservative measures. 04/30 - patient seen and examined at the bedside. No emesis. Patient started to pass gas, on auscultation she has normal bowel sounds now. Over the weekend CT scan was completed which showed ileus. Surgeon saw the patient, recommended discontinuing NG tomorrow and starting clear liquid diet. Given the hypernatremia, discontinued LR, started D5. Objective vital signs Vital Sign Date Time Temp Pulse Resp B/P (MAP) Pulse Ox O2 Delivery O2 Flow Rate FiO2 04/30/24 12:40 98.3 107 18 144/94 (111) 93 98.3 04/30/24 08:00 Nasal Cannula* 2 28 Total Intake and Output 04/29/24 04/29/24 04/30/24 15:00 23:00 07:00 Intake Total 0 ml 100 ml Output Total 550 ml Balance -550 ml 100 ml medications Current Medications Medications Dose Ordered Sig/Murali Route Start Time Stop Time Status Last Admin Dose Admin Metronidazole 500 mg Q8HR PO 04/27/24 06:00 Cancel Ondansetron HCl 4 mg Q6HPRN PRN IV 04/26/24 22:30 04/29/24 22:40 4 MG Ceftriaxone Sodium 50 ml @ 100 mls/hr DAILY@09 IV 04/27/24 09:00 04/30/24 08:21 100 MLS/HR Metronidazole 100 ml @ 100 mls/hr Q8HR IV 04/27/24 06:00 04/30/24 15:38 100 MLS/HR Acetaminophen 500 mg Q4HPRN PRN PO 04/27/24 15:30 Acetaminophen/ Hydrocodone Bitart 1 tab Q4HPRN PRN PO 04/27/24 15:30 Gabapentin 100 mg BID PO 04/27/24 22:00 Pantoprazole Sodium 40 mg BID IV 04/27/24 22:00 04/30/24 08:21 40 MG Morphine Sulfate 2 mg Q4HPRN PRN IV 04/29/24 12:15 04/30/24 04:27 2 MG Examination Morbidly obese female patient lying in bed, in no acute distress General: Morbidly obese, afebrile, palor, mucosae are moist Cardiovascular: Regular S1 and S2. No murmurs, gallops or rubs. No JVD elevation. No pedal edema Respiratory: Normal B/L air entry on room air. Clear lung sounds on auscultation Abdomen: Abdomen is distended, tender and soft, normoactive bowel sounds, no rebound tenderness. Vertical scar seen. Genitourinary: Deferred MSK/skin: Mobilizes 4 limbs. Skin is dry and warm Neurological: No motor, no sensitive deficits, normal speech. Pupils are isocoric and reactive. Psych/Mental Status: A/Ox3 laboratory and microbiology Laboratory Tests 04/30/24 15:07 04/30/24 09:54 Test 04/30/24 09:54 Range/Units Serum Glucose 149 H 74-106 mg/dL Labs and/or images reviewed: Labs reviewed by me, Image(s) reviewed by me Problem List/Assessment/Plan Problem List/Assessment/Plan 04/30 - patient seen and examined at the bedside. No emesis. Patient started to pass gas, on auscultation she has normal bowel sounds now. Over the weekend CT scan was completed which showed ileus. Surgeon saw the patient, recommended discontinuing NG tomorrow and starting clear liquid diet. Given the hypernatremia, discontinued LR, started D5. Probable small bowel ileus ? Complete Small-bowel obstruction Descending and sigmoid diverticulosis CT scan shows, small-bowel obstruction with transition point in the right lower quadrant Surgical consultation -recommended continued conservative measures Continue NG tube with intermittent suction, continue NPO Continue fluid resuscitation with NG tube Ambulation can not be performed as the patient is bed-bound Empiric antibiotics IV fluids Guzman IV Rocephin X-ray small bowel series with Gastrografin shows Contrast is identified within the colon by 4 hours This represents probable small bowel ileus. IV lactated ringer switched to D5 given hyponatremia Diabetes mellitus type 2-hemoglobin A1c pending On ISS ANDIE likely vasomotor on CKD stage IIIB On IV fluids Monitor Hypernatremia Started d5 History of CVA and subdural hematoma 2019 Holding aspirin given the likelihood of GI bleed in the dark black NG output History of hypertension, currently normotensive Holding antihypertensives at this point History of dementia Monitor Morbid obesity BMI is 41.7 Diet: NPO DVT prophylaxis on hold until stool occult is negative, output is dark black. currently SCDs GI prophylaxis: Pantoprazole 40 mg IV b.i.d. Plan discussed with patient and caregiver essence at the bedside in which all questions have been answered Goals of care discussed with patient for more than 20 minutes, full code status Case discussed with Plan discussed with: Patient Dietary Evaluation Review Comments: 1) Continue to monitor bowel activity. If patient remains NPO for more than 7 days, consider TPN to meet at least 75% of estimated needs 2) Consult surgery 3) Advance to clear liquid diet and progress to low-fiber diet when medically feasible, pending RESEARCH BIOSTATISTICIAN approval 3) Refer to outpatient RD/[facility] for weight management Expected Outcomes/Goals: 1) Receive nutrition within 7 days 2) GI symptoms to resolve 3) appetite and labs to improve 4) diet to advance Date of Service: Apr 30, 2024 Billing Provider: DONNY MENDIETA DO Common Visit Codes: [id number] INP/OBS CARE(HIGH) MARK ARCE RESIDENT Apr 30, 2024 17:12 DONNY MENDIETA DO May 02, 2024 16:22
[2024-04-30] MEDS: D5W 5% 1,000 ML IV SCH (17:15)
[2024-04-30] MEDS: POTASSIUM CHL 20MEQ/100ML 100 ML IV SCH (18:15)
[2024-05-01] VITALS (9 sets, daily range): BP systolic 105–146; BP diastolic 49–99; PULSE 90–111; RESP 16–19; TEMP 97.4–98.4; O2SAT 93–97
[2024-05-01] MEDS: LACTATED RINGER'S 2,000 ML IV ONE (05:11)
--- NOTE | 2024-05-01 07:40 | DVHPN2 ---
Progress Note - Dictate Date Seen: May 01, 2024 Medical Necessity Reason Pt with a Central, PICC or Fol: No Subjective E: no major events o/n. NGT clamped o/n. on ice chips. questionable emesis? but no evidence per RN. no complaints. feels better than yesterday. reports flatus. no BM vital signs Vital Sign Date Time Temp Pulse Resp B/P (MAP) Pulse Ox O2 Delivery O2 Flow Rate FiO2 05/01/24 05:00 98.2 98 19 105/49 (67) 94 98.2 04/30/24 20:00 Nasal Cannula* 2 28 Total Intake and Output 04/30/24 04/30/24 05/01/24 15:00 23:00 07:00 Intake Total 100 ml 675 ml 200 ml Output Total 550 ml 300 ml Balance 100 ml 125 ml -100 ml medications Current Medications Medications Dose Ordered Sig/Murali Route Start Time Stop Time Status Last Admin Dose Admin Metronidazole 500 mg Q8HR PO 04/27/24 06:00 Cancel Ondansetron HCl 4 mg Q6HPRN PRN IV 04/26/24 22:30 04/29/24 22:40 4 MG Ceftriaxone Sodium 50 ml @ 100 mls/hr DAILY@09 IV 04/27/24 09:00 04/30/24 08:21 100 MLS/HR Metronidazole 100 ml @ 100 mls/hr Q8HR IV 04/27/24 06:00 05/01/24 05:11 100 MLS/HR Acetaminophen 500 mg Q4HPRN PRN PO 04/27/24 15:30 Acetaminophen/ Hydrocodone Bitart 1 tab Q4HPRN PRN PO 04/27/24 15:30 Gabapentin 100 mg BID PO 04/27/24 22:00 Pantoprazole Sodium 40 mg BID IV 04/27/24 22:00 04/30/24 21:31 40 MG Morphine Sulfate 2 mg Q4HPRN PRN IV 04/29/24 12:15 05/01/24 02:41 2 MG Dextrose 1,000 ml @ 75 mls/hr [id number] IV 04/30/24 17:15 04/30/24 17:15 75 MLS/HR objective GEN: NAD ABD: soft. NT laboratory and microbiology Laboratory Tests 04/30/24 15:07 04/30/24 09:54 Test 04/30/24 09:54 Range/Units Serum Glucose 149 H 74-106 mg/dL Assessment/Plan A: 1. slowly resolving pSBO vs ileus. P: 1. DC NGT and start clear liquid diet. Dietary Evaluation Review Comments: 1) Continue to monitor bowel activity. If patient remains NPO for more than 7 days, consider TPN to meet at least 75% of estimated needs 2) Consult surgery 3) Advance to clear liquid diet and progress to low-fiber diet when medically feasible, pending [employer] MACHINE OPERATOR approval 3) Refer to outpatient RD/[facility] for weight management Expected Outcomes/Goals: 1) Receive nutrition within 7 days 2) GI symptoms to resolve 3) appetite and labs to improve 4) diet to advance Plan discussed with: Patient DAVE DE SANTIAGO MD May 01, 2024 07:40
[2024-05-01 09:26] LABS: Basophils # (auto) 0 10 ^3/uL (0-0.2); Basophils % (auto) 0.3 % (0.0-2.0); Eosinophils # (auto) 0.2 10 ^3/uL (0-0.8); Eosinophils % (auto) 2.2 % (0.0-7.0); Hematocrit 39.4 % (36.0-46.0); Hemoglobin 13.1 g/dL (12.2-16.2); Lymphocytes # (auto) 1.5 10 ^3/uL (0.4-5.4); Lymphocytes % (auto) 16.1 % (10.0-50.0); Mean Corpuscular Hemoglobin 31.5 pg (28.0-32.0); Mean Corpuscular Hgb Conc. 33.3 g/dL (32.0-36.0); Mean Corpuscular Volume 94.6 fL (80.0-100.0); Monocytes # (auto) 1.1 10 ^3/uL (0-1.3); Monocytes % (auto) 11.8 % (0.0-12.0); Neutrophils # (auto) 6.5 10 ^3/uL (1.6-8.6); Neutrophils % (auto) 69.6 % (37.0-80.0); Nucleated Red Blood Cells % 0.3 %; Platelet Count (auto) 373 10^3/uL (140-450); Red Blood Cells 4.16 10^6/uL (4.0-5.20); Red Cell Distribution Width 16.3 % (11.8-14.3); White Blood Cell 9.3 10^3/uL (4.4-10.8)
[2024-05-01 09:45] LABS: Alanine Aminotransferase 9 U/L (7-40); Alkaline Phosphatase 69 U/L (46-116); Anion Gap 9 (5-15); Aspartate Aminotransferase 12 U/L (13-40); BUN/Creatinine Ratio 13.4 (10.0-20.0); Blood Urea Nitrogen 19 mg/dL (9-23); Calcium 9.4 mg/dL (8.7-10.4); Carbon Dioxide 24 mmol/L (20-31); Chloride 114 mmol/L (98-107); Glucose 154 mg/dL (74-106); Magnesium 2.3 mg/dL (1.6-2.6); Potassium 3.7 mmol/L (3.5-5.1); Sodium 147 mmol/L (136-145); Total Protein 6.9 g/dL (5.7-8.2)
[2024-05-01 09:47] LABS: Bilirubin, Total 0.4 mg/dL (0.2-1.0)
[2024-05-01] MEDS: FLEET ENEMA(ADULT) 135 ML PR ONE (10:09)
--- NOTE | 2024-05-01 15:38 | DVHPNRES ---
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 Patient reports that she experienced abdominal pain, started 4 days back associated with intractable nausea and vomiting which was dark yellow but not bloody. Denies passing gas. She could not keep any solid food down but could keep liquid. Says it last bowel movement was 4 days back. She lives with caregiver and is bed-bound. Denies smoking drinking or illicit drug use. On arrival, patient was tachycardic but normotensive. CT scan abdomen completed, showed Small-bowel obstruction with transition point in the right lower quadrant. Recommend surgical consultation. Further evaluation with small- bowel series with water-soluble contrast could be completed if clinically indicated. NG tube was administered with suction, patient was kept NPO, surgeon was consulted recommended a small bowel series with Gastrografin which is pending. Past medical history: See above Past surgical history : Open cholecystectomy and hysterectomy Social history: Lives with caregiver, bed-bound for the past 2 years due to stroke, denies smoking drinking or drug use Home medication: Aspirin, atorvastatin, carvedilol, enalapril, furosemide, Ozempic, Eliquis, oxybutynin, and duloxetine 04/27-Patient seen and examined at the bedside. Pending small bowel series with Gastrografin. Had a small smear like bowel movement. 04/28-patient seen and examined at bedside. Gastrografin completed, contrast identified within the colon by 4 hours. Radiologist read as small bowel ileus. Patient had 2 episodes of watery yellowish emesis in p.m. yesterday, 1 episode of yellowish emesis at 4:00 a.m. this morning. Not passing gas, absent bowel movement. No bowel movements. Spoke to Dr. Luna , recommended continuing conservative measures. 04/30 - patient seen and examined at the bedside. No emesis. Patient started to pass gas, on auscultation she has normal bowel sounds now. Over the weekend CT scan was completed which showed ileus. Surgeon saw the patient, recommended discontinuing NG tomorrow and starting clear liquid diet. Given the hypernatremia, discontinued LR, started D5. 05/01-patient seen and examined at the bedside. Surgeon recommended discontinuing NG, starting clear liquid diet. Patient has passing gas. No bowel movements. Bowel sounds are normal. Objective vital signs Vital Sign Date Time Temp Pulse Resp B/P (MAP) Pulse Ox O2 Delivery O2 Flow Rate FiO2 05/01/24 13:00 97.4 94 16 129/90 (103) 93 97.4 05/01/24 08:10 Nasal Cannula* 2 28 Total Intake and Output 04/30/24 04/30/24 05/01/24 15:00 23:00 07:00 Intake Total 100 ml 675 ml 200 ml Output Total 550 ml 300 ml Balance 100 ml 125 ml -100 ml medications Current Medications Medications Dose Ordered Sig/Murali Route Start Time Stop Time Status Last Admin Dose Admin Metronidazole 500 mg Q8HR PO 04/27/24 06:00 Cancel Ondansetron HCl 4 mg Q6HPRN PRN IV 04/26/24 22:30 04/29/24 22:40 4 MG Ceftriaxone Sodium 50 ml @ 100 mls/hr DAILY@09 IV 04/27/24 09:00 05/01/24 10:05 100 MLS/HR Metronidazole 100 ml @ 100 mls/hr Q8HR IV 04/27/24 06:00 05/01/24 05:11 100 MLS/HR Acetaminophen 500 mg Q4HPRN PRN PO 04/27/24 15:30 Acetaminophen/ Hydrocodone Bitart 1 tab Q4HPRN PRN PO 04/27/24 15:30 Gabapentin 100 mg BID PO 04/27/24 22:00 Pantoprazole Sodium 40 mg BID IV 04/27/24 22:00 05/01/24 10:17 40 MG Morphine Sulfate 2 mg Q4HPRN PRN IV 04/29/24 12:15 05/01/24 02:41 2 MG Dextrose 1,000 ml @ 75 mls/hr [id number] IV 04/30/24 17:15 04/30/24 17:15 75 MLS/HR Examination Morbidly obese female patient lying in bed, in no acute distress General: Morbidly obese, afebrile, palor, mucosae are moist Cardiovascular: Regular S1 and S2. No murmurs, gallops or rubs. No JVD elevation. No pedal edema Respiratory: Normal B/L air entry on room air. Clear lung sounds on auscultation Abdomen: Abdomen is distended, tender and soft, normoactive bowel sounds, no rebound tenderness. Vertical scar seen. Genitourinary: Deferred MSK/skin: Mobilizes 4 limbs. Skin is dry and warm Neurological: No motor, no sensitive deficits, normal speech. Pupils are isocoric and reactive. Psych/Mental Status: A/Ox3 laboratory and microbiology Laboratory Tests 05/01/24 08:55 Test 05/01/24 08:55 Range/Units Serum Glucose 154 H 74-106 mg/dL Labs and/or images reviewed: Labs reviewed by me, Image(s) reviewed by me Problem List/Assessment/Plan Problem List/Assessment/Plan Probable small bowel ileus ? Complete Small-bowel obstruction Descending and sigmoid diverticulosis CT scan shows, small-bowel obstruction with transition point in the right lower quadrant Surgical consultation -recommended continued conservative measures Continue NG tube with intermittent suction, continue NPO. Discontinued NGT 05/01, started clear liquid diet Continue fluid resuscitation with NG tube Ambulation can not be performed as the patient is bed-bound Empiric antibiotics IV fluids Guzman IV Rocephin X-ray small bowel series with Gastrografin shows Contrast is identified within the colon by 4 hours This represents probable small bowel ileus. IV lactated ringer switched to D5 given hyponatremia Diabetes mellitus type 2-hemoglobin A1c pending On ISS ANDIE likely vasomotor on CKD stage IIIB On IV fluids Monitor Hypernatremia, downtrending Started d5 History of CVA and subdural hematoma 2018 Holding aspirin given the likelihood of GI bleed in the dark black NG output History of hypertension, currently normotensive Holding antihypertensives at this point History of dementia Monitor Morbid obesity BMI is 41.7 Diet: Clear liquid DVT prophylaxis on hold until stool occult is negative, output is dark black. currently SCDs GI prophylaxis: Pantoprazole 40 mg IV b.i.d. Plan discussed with patient and caregiver essence at the bedside in which all questions have been answered Goals of care discussed with patient for more than 20 minutes, full code status Case discussed with Mendieta Plan discussed with: Patient My Orders My Orders Orders - MARK ARCE Procedure Category Date Status Time D5w 5% (Dextrose 5%) SUHAIL 04/30/24 In Process 17:15 Dietary Evaluation Review Comments: 1) Continue to monitor bowel activity. If patient remains NPO for more than 7 days, consider TPN to meet at least 75% of estimated needs 2) Consult surgery 3) Advance to clear liquid diet and progress to low-fiber diet when medically feasible, pending COMPUTER REPAIR ENGINEER approval 3) Refer to outpatient RD/CDCES for weight management Expected Outcomes/Goals: 1) Receive nutrition within 7 days 2) GI symptoms to resolve 3) appetite and labs to improve 4) diet to advance Date of Service: May 01, 2024 Billing Provider: DONNY MENDIETA DO Common Visit Codes: [id number] INP/OBS CARE(HIGH) MARK ARCE RESIDENT May 01, 2024 15:38 DONNY MENDIETA DO May 02, 2024 16:21
--- NOTE | 2024-05-01 16:50 | DVHINCON2 ---
Date of service: Apr 30, 2024 Referring Physician Colby Wilson MD Reason for Consultation Hypernatremia and ANDIE History of Present Illness Julianna Gibbs is a 69 year old F with a Past Medical History pertinent for Paroxysmal Atrial Fibrillation on Eliquis, CVA 2017 with residual weakness, bedbound, subdural hematoma, carotid stenosis, DM Type 2, Dementia, Hyperlipidemia and Hypertension who presented to the hospital with complaint of abdominal pain x 3 days associated with nausea and vomiting. Patient is currently bed bound due to CVA. Noted tachycardic but normotensive on arrival to ED. CT Scan Abdomen showed small bowel obstruction with transition point in the right lower quadrant. Surgery was consulted and recommended conservative measures. NG tube was administered with suction, patient was kept NPO. Small bowel series reported initial supervisor film processing view of the abdomen and pelvis demonstrates no acute process; contrast is identified within the colon by 4 hours, representing probable small bowel ileus. Patient is passing gas, no N/V. No bowel movements. Labs are remarkable for elevated Na 152. Creatinine 1.48. K 3.4. Glucose 149. Allergies: Coded Allergies: NO KNOWN ALLERGIES (Unverified , 04/02/10) Home Meds Reported Medications Semaglutide (Ozempic) 4 Mg/3 Ml Inj, 4 MG SC, INJ 04/27/24 Semaglutide (Ozempic) 4 Mg/3 Ml Inj, 4 MG SC, INJ 04/27/24 Glipizide (Glipizide) 10 Mg Tab, 1 TAB PO BID, #60 TAB 5 Refills 08/02/20 Atorvastatin Calcium (ATORVASTATIN CALCIUM) 20 Mg Tab, 1 TAB PO DAILY, #30 TAB 5 Refills 08/02/20 Cholecalciferol (VITAMIN D3) 2,000 Unit Tab, 5000 UNIT OR DAILY, TAB 08/02/20 Aspirin (Aspirin 81 Low Dose) 81 Mg Chw, 81 MG PO DAILY, TAB.CHEW 08/02/20 Carvedilol (Carvedilol) 3.125 Mg Tab, 1 TAB PO BID 04/02/10 Furosemide (Lasix) 40 Mg Tab, 1 TAB PO BID 04/02/10 Enalapril Maleate (Enalapril Maleate) 5 Mg Tab, 10 MG PO DAILY 04/02/10 Discontinued Reported Medications Metformin Hydrochloride (Metformin Hcl) 500 Mg Tab, 1000 MG PO BID 04/02/10 Current Medications Current Medications Medications (Trade) Dose Ordered Sig/Murali Route PRN Reason Start Time Stop Time Status Last Admin Dextrose 1,000 ml @ 75 mls/hr [id number] IV 04/30/24 17:15 04/30/24 17:15 Family History: Patient reports no known family medical history. Review of Systems Gastrointestinal: Abdominal Pain All other systems reviewed and negative unless otherwise noted in HPI. H&P Exam Vital Signs/I&O Vital Sign Date Time Temp Pulse Resp B/P (MAP) Pulse Ox O2 Delivery O2 Flow Rate FiO2 05/01/24 13:00 97.4 94 16 129/90 (103) 93 97.4 05/01/24 08:10 Nasal Cannula* 2 28 Intake and Output 04/30/24 05/01/24 19:00 07:00 Intake Total 775 ml 200 ml Output Total 550 ml 300 ml Balance 225 ml -100 ml Intake Oral 150 ml 0 ml IV Total 625 ml 200 ml Output Urine Total 550 ml 300 ml Physical Exam Vitals and nursing notes reviewed. General: Morbidly obese female patient lying in bed, in no acute distress Eyes: Pupils are isocoric and reactive. Cardiovascular: Regular S1 and S2. No murmurs, gallops or rubs. No JVD elevation. No pedal edema Respiratory: Normal B/L air entry on room air. Clear lung sounds on a uscultation Abdomen: Abdomen is distended, tender and soft, normoactive bowel sounds, no rebound tenderness. Vertical scar seen. MSK/skin: Mobilizes 4 limbs. Skin is dry and warm Neurological: No motor, no sensitive deficits, normal speech. Psych/Mental Status: A/Ox3 Labs/Diagnostic Data Labs/Diagnostic Data Laboratory Tests Test 05/01/24 08:55 04/30/24 15:07 04/30/24 09:54 04/28/24 05:40 Range/Units White Blood Count 9.3 9.4 8.6 4.4-10.8 10^3/uL Red Blood Count 4.16 4.55 4.61 4.0-5.20 10^6/uL Hemoglobin 13.1 13.9 14.0 12.2-16.2 g/dL Hematocrit 39.4 43.0 43.9 36.0-46.0 % Mean Corpuscular Volume 94.6 94.4 95.1 80.0-100.0 fL Mean Corpuscular Hemoglobin 31.5 30.6 30.4 28.0-32.0 pg Mean Corpuscular Hemoglobin Concent 33.3 32.4 32.0 32.0-36.0 g/dL Red Cell Distribution Width 16.3 H 16.2 H 16.9 H 11.8-14.3 % Platelet Count 373 392 378 140-450 10^3/uL Mean Platelet Volume 7.9 8.0 8.2 6.9-10.8 fL Neutrophils (%) (Auto) 69.6 79.0 80.1 H 37.0-80.0 % Lymphocytes (%) (Auto) 16.1 10.3 9.3 L 10.0-50.0 % Monocytes (%) (Auto) 11.8 9.4 10.1 0.0-12.0 % Eosinophils (%) (Auto) 2.2 1.0 0.2 0.0-7.0 % Basophils (%) (Auto) 0.3 0.3 0.3 0.0-2.0 % Neutrophils # (Auto) 6.5 7.5 6.9 1.6-8.6 10 ^3/uL Lymphocytes # (Auto) 1.5 1.0 0.8 0.4-5.4 10 ^3/uL Monocytes # (Auto) 1.1 0.9 0.9 0-1.3 10 ^3/uL Eosinophils # (Auto) 0.2 0.1 0 0-0.8 10 ^3/uL Basophils # (Auto) 0 0 0 0-0.2 10 ^3/uL Nucleated Red Blood Cells 0.3 0.1 0.1 % Sodium Level 147 #H 153 H 152 #H 147 #H 136-145 mmol/L Potassium Level 3.7 3.4 L 3.5 3.5-5.1 mmol/L Chloride Level 114 H 115 H 109 H 98-107 mmol/L Carbon Dioxide Level 24 24 26 20-31 mmol/L Anion Gap 9 13 12 5-15 Blood Urea Nitrogen 19 23 23 9-23 mg/dL Creatinine 1.42 H 1.48 H 1.96 H 0.550-1.02 mg/dL Glomerular Filtration Rate Calc 40 38 27 >90 mL/min BUN/Creatinine Ratio 13.4 15.5 11.7 10.0-20.0 Serum Glucose 154 H 149 H 163 H 74-106 mg/dL Calcium Level 9.4 9.7 9.9 8.7-10.4 mg/dL Magnesium Level 2.3 2.4 2.3 1.6-2.6 mg/dL Total Bilirubin 0.4 0.2-1.0 mg/dL Aspartate Amino Transferase (AST) 12 L 13-40 U/L Alanine Aminotransferase (ALT) 9 7-40 U/L Alkaline Phosphatase 69 46-116 U/L Total Protein 6.9 5.7-8.2 g/dL Albumin 4.0 3.2-4.8 g/dL Prothrombin Time 11.8 9.3-11.8 sec Prothrombin Time INR 1.13 0.9-1.15 Activated Partial Thromboplast Time 26.2 24.5-34.5 SEC Hemoglobin A1c 6.0 H <5.7 % A1C Test 04/27/24 06:20 04/26/24 23:04 04/26/24 23:00 04/26/24 22:28 Range/Units White Blood Count 7.8 4.4-10.8 10^3/uL Red Blood Count 4.44 4.0-5.20 10^6/uL Hemoglobin 13.7 12.2-16.2 g/dL Hematocrit 43.9 36.0-46.0 % Mean Corpuscular Volume 98.8 # 80.0-100.0 fL Mean Corpuscular Hemoglobin 30.9 28.0-32.0 pg Mean Corpuscular Hemoglobin Concent 31.3 L 32.0-36.0 g/dL Red Cell Distribution Width 16.9 H 11.8-14.3 % Platelet Count 368 140-450 10^3/uL Mean Platelet Volume 7.5 6.9-10.8 fL Neutrophils (%) (Auto) 75.4 37.0-80.0 % Lymphocytes (%) (Auto) 13.0 10.0-50.0 % Monocytes (%) (Auto) 10.6 0.0-12.0 % Eosinophils (%) (Auto) 0.9 0.0-7.0 % Basophils (%) (Auto) 0.1 0.0-2.0 % Neutrophils # (Auto) 5.9 1.6-8.6 10 ^3/uL Lymphocytes # (Auto) 1.0 0.4-5.4 10 ^3/uL Monocytes # (Auto) 0.8 0-1.3 10 ^3/uL Eosinophils # (Auto) 0.1 0-0.8 10 ^3/uL Basophils # (Auto) 0 0-0.2 10 ^3/uL Nucleated Red Blood Cells 0.1 % Prothrombin Time 11.6 9.3-11.8 sec Prothrombin Time INR 1.11 0.9-1.15 Activated Partial Thromboplast Time 29.1 24.5-34.5 SEC Sodium Level 141 136-145 mmol/L Potassium Level 3.9 3.5-5.1 mmol/L Chloride Level 105 98-107 mmol/L Carbon Dioxide Level 25 20-31 mmol/L Anion Gap 11 5-15 Blood Urea Nitrogen 19 9-23 mg/dL Creatinine 1.92 H 0.550-1.02 mg/dL Glomerular Filtration Rate Calc 28 >90 mL/min BUN/Creatinine Ratio 9.9 L 10.0-20.0 Serum Glucose 151 H 74-106 mg/dL Calcium Level 10.0 8.7-10.4 mg/dL Total Bilirubin 0.6 0.2-1.0 mg/dL Aspartate Amino Transferase (AST) 14 13-40 U/L Alanine Aminotransferase (ALT) < 9 7-40 U/L Alkaline Phosphatase 84 46-116 U/L Total Protein 7.6 5.7-8.2 g/dL Albumin 4.4 3.2-4.8 g/dL POC Glucose 196 H 70-106 mg/dl Lactic Acid Level 1.6 0.4-2.0 mmol/L Lactate Dehydrogenase 204 120-246 U/L Urine Color Yellow Yellow Urine Clarity Turbid H Clear Urine pH 5.0 5.0-9.0 Urine Specific Cassatt 1.019 1.001-1.035 Urine Protein 1+ H Negative Urine Ketones Trace Negative Urine Blood Negative Negative /uL Urine Nitrite Negative Negative Urine Bilirubin Negative Negative Urine Urobilinogen Normal Negative mg/dL Urine Leukocyte Esterase Negative Negative /uL Urine RBC 2 0 - 4 /hpf Urine Microscopic WBC < 1 0-5 /HPF Urine Squamous Epithelial Cells Mod <5 /hpf Urine Bacteria Few H None Seen /hpf Urine Hyaline Casts Mod 0 - 2 /lpf Urine Mucus Few None Seen Urine Glucose Normal Normal mg/dL Urine Opiates Screen Neg NEGATIVE Urine Fentanyl Screen Neg NEGATIVE Urine Barbiturates Screen Neg NEGATIVE Urine Phencyclidine Screen Neg NEGATIVE Urine Amphetamines Screen Neg NEGATIVE Urine Benzodiazepines Screen Neg NEGATIVE Urine Cocaine Screen Neg NEGATIVE Urine Cannabinoids Screen Neg NEGATIVE Test 04/26/24 20:20 04/26/24 15:48 Range/Units POC Glucose 172 H 70-106 mg/dl White Blood Count 9.8 4.4-10.8 10^3/uL Red Blood Count 4.87 4.0-5.20 10^6/uL Hemoglobin 14.8 12.2-16.2 g/dL Hematocrit 45.5 36.0-46.0 % Mean Corpuscular Volume 93.6 80.0-100.0 fL Mean Corpuscular Hemoglobin 30.4 28.0-32.0 pg Mean Corpuscular Hemoglobin Concent 32.5 32.0-36.0 g/dL Red Cell Distribution Width 16.4 H 11.8-14.3 % Platelet Count 405 140-450 10^3/uL Mean Platelet Volume 8.0 6.9-10.8 fL Neutrophils (%) (Auto) 83.5 H 37.0-80.0 % Lymphocytes (%) (Auto) 9.4 L 10.0-50.0 % Monocytes (%) (Auto) 6.5 0.0-12.0 % Eosinophils (%) (Auto) 0.4 0.0-7.0 % Basophils (%) (Auto) 0.2 0.0-2.0 % Neutrophils # (Auto) 8.2 1.6-8.6 10 ^3/uL Lymphocytes # (Auto) 0.9 0.4-5.4 10 ^3/uL Monocytes # (Auto) 0.6 0-1.3 10 ^3/uL Eosinophils # (Auto) 0 0-0.8 10 ^3/uL Basophils # (Auto) 0 0-0.2 10 ^3/uL Nucleated Red Blood Cells 0.1 % Sodium Level 140 136-145 mmol/L Potassium Level 4.0 3.5-5.1 mmol/L Chloride Level 105 98-107 mmol/L Carbon Dioxide Level 25 20-31 mmol/L Anion Gap 10 5-15 Blood Urea Nitrogen 18 9-23 mg/dL Creatinine 1.66 H 0.550-1.02 mg/dL Glomerular Filtration Rate Calc 33 >90 mL/min BUN/Creatinine Ratio 10.8 10.0-20.0 Serum Glucose 168 H 74-106 mg/dL Calcium Level 10.4 8.7-10.4 mg/dL Magnesium Level 2.1 1.6-2.6 mg/dL Total Bilirubin 0.7 0.2-1.0 mg/dL Aspartate Amino Transferase (AST) 8 L 13-40 U/L Alanine Aminotransferase (ALT) < 9 7-40 U/L Alkaline Phosphatase 91 46-116 U/L Total Protein 8.0 5.7-8.2 g/dL Albumin 4.6 3.2-4.8 g/dL Assessment Probable small bowel ileus Descending and sigmoid diverticulosis ANDIE Hypernatremia DM2 History of CVA and subdural hematoma 2018 Plan/Recommendation Agreement with your ongoing assessment and plan of care. Surgery following- recommended conservative measures. NG tube to be discontinued tomorrow. Monitor daily labs to include renal function and electrolytes. Electrolyte replacement prn. IVFs with D5 at 75 mL/hr. Antiemetics with Zofran. Pain management prn. Patient is bedbound. Additional plan as per the hospital course. Plan discussed with: Patient, Other (RN) HONEY FERRO DO May 01, 2024 16:50
--- NOTE | 2024-05-01 16:51 | DVHPN2 ---
Progress Note - Dictate Date Seen: May 01, 2024 Medical Necessity Reason Pt with a Central, PICC or Fol: No Subjective Patient was seen and evaluated in follow up. No acute events overnight. No new complaints. Patient is passing gas. No BM's. NG tube discontinued per surgery. AM labs are remarkable for Creatinine 1.42. Na 147. Glucose 154. vital signs Vital Sign Date Time Temp Pulse Resp B/P (MAP) Pulse Ox O2 Delivery O2 Flow Rate FiO2 05/01/24 13:00 97.4 94 16 129/90 (103) 93 97.4 05/01/24 08:10 Nasal Cannula* 2 28 Total Intake and Output 04/30/24 04/30/24 05/01/24 15:00 23:00 07:00 Intake Total 100 ml 675 ml 200 ml Output Total 550 ml 300 ml Balance 100 ml 125 ml -100 ml medications Current Medications Medications Dose Ordered Sig/Murali Route Start Time Stop Time Status Last Admin Dose Admin Metronidazole 500 mg Q8HR PO 04/27/24 06:00 Cancel Ondansetron HCl 4 mg Q6HPRN PRN IV 04/26/24 22:30 04/29/24 22:40 Ceftriaxone Sodium 50 ml @ 100 mls/hr DAILY@09 IV 04/27/24 09:00 05/01/24 10:05 Metronidazole 100 ml @ 100 mls/hr Q8HR IV 04/27/24 06:00 05/01/24 05:11 Acetaminophen 500 mg Q4HPRN PRN PO 04/27/24 15:30 Acetaminophen/ Hydrocodone Bitart 1 tab Q4HPRN PRN PO 04/27/24 15:30 Gabapentin 100 mg BID PO 04/27/24 22:00 Pantoprazole Sodium 40 mg BID IV 04/27/24 22:00 05/01/24 10:17 Morphine Sulfate 2 mg Q4HPRN PRN IV 04/29/24 12:15 05/01/24 02:41 Dextrose 1,000 ml @ 75 mls/hr [id number] IV 04/30/24 17:15 04/30/24 17:15 objective Vitals and nursing notes reviewed. General: Morbidly obese female patient lying in bed, in no acute distress Eyes: Pupils are isocoric and reactive. Cardiovascular: Regular S1 and S2. No murmurs, gallops or rubs. No JVD elevation. No pedal edema Respiratory: Normal B/L air entry on room air. Clear lung sounds on auscultation Abdomen: Abdomen is distended, tender and soft, normoactive bowel sounds, no rebound tenderness. Vertical scar seen. MSK/skin: Mobilizes 4 limbs. Skin is dry and warm Neurological: No motor, no sensitive deficits, normal speech. Psych/Mental Status: A/Ox3 laboratory and microbiology Laboratory Tests 05/01/24 08:55 Test 05/01/24 08:55 Range/Units Serum Glucose 154 H 74-106 mg/dL Problem List Probable small bowel ileus Descending and sigmoid diverticulosis ANDIE Hypernatremia DM2 History of CVA and subdural hematoma 2018 Assessment/Plan Agree with current supportive medical care. Surgery following- recommended conservative measures. Started on clear liquid diet. NG tube discontinued. Monitor daily labs to include renal function and electrolytes. Electrolyte replacement prn. IVFs with D5 at 75 mL/hr. IV antibiotics. Antiemetics with Zofran prn. Patient is bedbound. Additional plan as per the hospital course. Dietary Evaluation Review Comments: 1) Continue to monitor bowel activity. If patient remains NPO for more than 7 days, consider TPN to meet at least 75% of estimated needs 2) Consult surgery 3) Advance to clear liquid diet and progress to low-fiber diet when medically feasible, pending SENIOR DATA MINING ANALYST approval 3) Refer to outpatient RD/CD[facility] for weight management Expected Outcomes/Goals: 1) Receive nutrition within 7 days 2) GI symptoms to resolve 3) appetite and labs to improve 4) diet to advance Plan discussed with: Patient, Other (RN) HONEY FERRO DO May 01, 2024 16:51
[2024-05-02] VITALS (9 sets, daily range): BP systolic 111–143; BP diastolic 70–94; PULSE 86–110; RESP 16–19; TEMP 97.8–99; O2SAT 94–98
[2024-05-02] MEDS: LACTULOSE 20Gm/30ML SOLN PO SCH (09:29)
[2024-05-02 12:22] LABS: Anion Gap 7 (5-15); Carbon Dioxide 28 mmol/L (20-31)
[2024-05-02 12:23] LABS: Calcium 9.6 mg/dL (8.7-10.4)
[2024-05-02 12:28] LABS: BUN/Creatinine Ratio 12.6 (10.0-20.0); Blood Urea Nitrogen 17 mg/dL (9-23)
[2024-05-02 12:30] LABS: Chloride 111 mmol/L (98-107); Glucose 202 mg/dL (74-106); Potassium 3.3 mmol/L (3.5-5.1); Sodium 146 mmol/L (136-145)
--- NOTE | 2024-05-02 15:41 | DVHPNRES ---
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 Patient reports that she experienced abdominal pain, started 4 days back associated with intractable nausea and vomiting which was dark yellow but not bloody. Denies passing gas. She could not keep any solid food down but could keep liquid. Says it last bowel movement was 4 days back. She lives with caregiver and is bed-bound. Denies smoking drinking or illicit drug use. On arrival, patient was tachycardic but normotensive. CT scan abdomen completed, showed Small-bowel obstruction with transition point in the right lower quadrant. Recommend surgical consultation. Further evaluation with small- bowel series with water-soluble contrast could be completed if clinically indicated. NG tube was administered with suction, patient was kept NPO, surgeon was consulted recommended a small bowel series with Gastrografin which is pending. Past medical history: See above Past surgical history : Open cholecystectomy and hysterectomy Social history: Lives with caregiver, bed-bound for the past 2 years due to stroke, denies smoking drinking or drug use Home medication: Aspirin, atorvastatin, carvedilol, enalapril, furosemide, Ozempic, Eliquis, oxybutynin, and duloxetine 04/27-Patient seen and examined at the bedside. Pending small bowel series with Gastrografin. Had a small smear like bowel movement. 04/28-patient seen and examined at bedside. Gastrografin completed, contrast identified within the colon by 4 hours. Radiologist read as small bowel ileus. Patient had 2 episodes of watery yellowish emesis in p.m. yesterday, 1 episode of yellowish emesis at 4:00 a.m. this morning. Not passing gas, absent bowel movement. No bowel movements. Spoke to Dr. Luna , recommended continuing conservative measures. 04/30 - patient seen and examined at the bedside. No emesis. Patient started to pass gas, on auscultation she has normal bowel sounds now. Over the weekend CT scan was completed which showed ileus. Surgeon saw the patient, recommended discontinuing NG tomorrow and starting clear liquid diet. Given the hypernatremia, discontinued LR, started D5. 05/01-patient seen and examined at the bedside. Surgeon recommended discontinuing NG, starting clear liquid diet. Patient has passing gas. No bowel movements. Bowel sounds are normal. 05/02-patient seen and examined at the bedside. Started lactulose 30 mL b.i.d.. Started full liquid diet. Objective vital signs Vital Sign Date Time Temp Pulse Resp B/P (MAP) Pulse Ox O2 Delivery O2 Flow Rate FiO2 05/02/24 12:30 98.0 93 19 135/94 (108) 95 98.0 05/02/24 08:00 Room Air* 0 21 Total Intake and Output 05/01/24 05/01/24 05/02/24 15:00 23:00 07:00 Intake Total 1085 ml 0 ml Output Total 350 ml 280 ml Balance 735 ml -280 ml medications Current Medications Medications Dose Ordered Sig/Murali Route Start Time Stop Time Status Last Admin Dose Admin Metronidazole 500 mg Q8HR PO 04/27/24 06:00 Cancel Ondansetron HCl 4 mg Q6HPRN PRN IV 04/26/24 22:30 05/02/24 14:54 4 MG Ceftriaxone Sodium 50 ml @ 100 mls/hr DAILY@09 IV 04/27/24 09:00 05/02/24 09:41 100 MLS/HR Metronidazole 100 ml @ 100 mls/hr Q8HR IV 04/27/24 06:00 05/02/24 14:54 100 MLS/HR Acetaminophen 500 mg Q4HPRN PRN PO 04/27/24 15:30 Acetaminophen/ Hydrocodone Bitart 1 tab Q4HPRN PRN PO 04/27/24 15:30 Gabapentin 100 mg BID PO 04/27/24 22:00 05/02/24 09:39 100 MG Pantoprazole Sodium 40 mg BID IV 04/27/24 22:00 05/02/24 09:30 40 MG Morphine Sulfate 2 mg Q4HPRN PRN IV 04/29/24 12:15 05/01/24 02:41 2 MG Dextrose 1,000 ml @ 75 mls/hr [id number] IV 04/30/24 17:15 05/02/24 09:31 75 MLS/HR Lactulose 30 ml BID PO 05/02/24 10:00 05/02/24 09:29 30 ML Examination Morbidly obese female patient lying in bed, in no acute distress General: Morbidly obese, afebrile, palor, mucosae are moist Cardiovascular: Regular S1 and S2. No murmurs, gallops or rubs. No JVD elevation. No pedal edema Respiratory: Normal B/L air entry on room air. Clear lung sounds on auscultation Abdomen: Abdomen is distended, tender and soft, normoactive bowel sounds, no rebound tenderness. Vertical scar seen. Genitourinary: Deferred MSK/skin: Mobilizes 4 limbs. Skin is dry and warm Neurological: No motor, no sensitive deficits, normal speech. Pupils are isocoric and reactive. Psych/Mental Status: A/Ox3 laboratory and microbiology Laboratory Tests 05/02/24 11:50 05/01/24 08:55 Test 05/02/24 11:50 Range/Units Serum Glucose 202 H 74-106 mg/dL Labs and/or images reviewed: Labs reviewed by me, Image(s) reviewed by me Problem List/Assessment/Plan Problem List/Assessment/Plan Probable small bowel ileus ? Complete Small-bowel obstruction Descending and sigmoid diverticulosis CT scan shows, small-bowel obstruction with transition point in the right lower quadrant Surgical consultation -recommended continued conservative measures Continue NG tube with intermittent suction, continue NPO. Discontinued NGT 05/01, started clear liquid diet, progress to full liquid diet 05/02 Continue fluid resuscitation with NG tube Ambulation can not be performed as the patient is bed-bound Empiric antibiotics IV fluids Guzman IV Rocephin X-ray small bowel series with Gastrografin shows Contrast is identified within the colon by 4 hours This represents probable small bowel ileus. IV lactated ringer switched to D5 given hyponatremia Diabetes mellitus type 2-hemoglobin A1c pending On ISS ANDIE likely vasomotor on CKD stage IIIB On IV fluids Monitor Hypernatremia, downtrending Hypokalemia Started d5 History of CVA and subdural hematoma 2018 Holding aspirin given the likelihood of GI bleed in the dark black NG output History of hypertension, currently normotensive Holding antihypertensives at this point History of dementia Monitor Morbid obesity BMI is 41.7 Diet: Clear liquid DVT prophylaxis on hold until stool occult is negative, output is dark black. currently SCDs GI prophylaxis: Pantoprazole 40 mg IV b.i.d. Plan discussed with patient and caregiver essence at the bedside in which all questions have been answered Goals of care discussed with patient for more than 20 minutes, full code status Case discussed with Katie Plan discussed with: Patient My Orders My Orders Orders - MARK ARCE Procedure Category Date Status Time Lactulose Oral PHA 05/02/24 In Process 10:00 Dietary Evaluation Review Comments: 1) Continue to monitor bowel activity. If patient remains NPO for more than 7 days, consider TPN to meet at least 75% of estimated needs 2) Consult surgery 3) Advance to clear liquid diet and progress to low-fiber diet when medically feasible, pending INSEMINATION WORKER approval 3) Refer to outpatient RD/CD[facility] for weight management Expected Outcomes/Goals: 1) Receive nutrition within 7 days 2) GI symptoms to resolve 3) appetite and labs to improve 4) diet to advance Date of Service: May 02, 2024 Billing Provider: DONNY MENDIETA DO Common Visit Codes: 30854-GCJ/[id number] DISCH DAY >30min MARK ARCE May 02, 2024 15:41 DONNY MENDIETA DO May 02, 2024 16:21
[2024-05-02] MEDS: POTASSIUM EFFERVESENT TAB 25 MEQ PO ONE (15:45)
[2024-05-02] MEDS ORDERED: POTASSIUM CHL 20MEQ/100ML 100 ML IV ONE (15:45)
[2024-05-02] MEDS: ENOXAPARIN SOD 40 MG/0.4 ML SYRINGE SC ONE (18:30)
[2024-05-02] MEDS: METOCLOPRAMIDE HCL 5MG/ml INJ 2ml VIAL IV SCH (18:30)
[2024-05-02] MEDS: POTASSIUM CHL 20MEQ/50ML 50 ML IV ONE (18:31)
[2024-05-02] MEDS: SODIUM CHL 0.9% 100 ML IV ONE (18:32)
--- NOTE | 2024-05-02 19:04 | DVHPN2 ---
Progress Note - Dictate Date Seen: May 02, 2024 Has the PT tested + for MRSA If YES, has PT been informed?: No Medical Necessity Reason Pt with a Central, PICC or Fol: No Subjective Patient was seen and evaluated in follow up. No acute events overnight. Patient is complaining of episodes of N/V. Started on full liquid diet. Na decreased to 146. K 3.3. Creatinine 1.35. Glucose 202. vital signs Vital Sign Date Time Temp Pulse Resp B/P (MAP) Pulse Ox O2 Delivery O2 Flow Rate FiO2 05/02/24 16:55 99.0 99 18 139/93 (108) 96 99.0 05/02/24 08:00 Room Air* 0 21 Total Intake and Output 05/01/24 05/01/24 05/02/24 15:00 23:00 07:00 Intake Total 1085 ml 0 ml Output Total 350 ml 280 ml Balance 735 ml -280 ml medications Current Medications Medications Dose Ordered Sig/Murali Route Start Time Stop Time Status Last Admin Dose Admin Metronidazole 500 mg Q8HR PO 04/27/24 06:00 Cancel Ondansetron HCl 4 mg Q6HPRN PRN IV 04/26/24 22:30 05/02/24 14:54 4 MG Ceftriaxone Sodium 50 ml @ 100 mls/hr DAILY@09 IV 04/27/24 09:00 05/02/24 09:41 100 MLS/HR Metronidazole 100 ml @ 100 mls/hr Q8HR IV 04/27/24 06:00 05/02/24 14:54 100 MLS/HR Acetaminophen 500 mg Q4HPRN PRN PO 04/27/24 15:30 Acetaminophen/ Hydrocodone Bitart 1 tab Q4HPRN PRN PO 04/27/24 15:30 Gabapentin 100 mg BID PO 04/27/24 22:00 05/02/24 09:39 100 MG Morphine Sulfate 2 mg Q4HPRN PRN IV 04/29/24 12:15 05/01/24 02:41 2 MG Dextrose 1,000 ml @ 75 mls/hr [id number] IV 04/30/24 17:15 05/02/24 09:31 75 MLS/HR Lactulose 30 ml BID PO 05/02/24 10:00 05/02/24 09:29 30 ML Purified Water 250 ml BID GT 05/02/24 22:00 Metoclopramide HCl 5 mg Q6H IV 05/02/24 18:00 05/02/24 18:30 5 MG Pantoprazole Sodium 40 mg DAILY IV 05/03/24 10:00 Enoxaparin Sodium 40 mg DAILY SC 05/03/24 10:00 objective Vitals and nursing notes reviewed. General: Morbidly obese female patient lying in bed, in no acute distress Eyes: Pupils are isocoric and reactive. Cardiovascular: Regular S1 and S2. No murmurs, gallops or rubs. No JVD elevation. No pedal edema Respiratory: Normal B/L air entry on room air. Clear lung sounds on auscultation Abdomen: Abdomen is distended, tender and soft, normoactive bowel sounds, no rebound tenderness. Vertical scar seen. MSK/skin: Mobilizes 4 limbs. Skin is dry and warm Neurological: No motor, no sensitive deficits, normal speech. Psych/Mental Status: A/Ox3 laboratory and microbiology Laboratory Tests 05/02/24 11:50 05/01/24 08:55 Test 05/02/24 11:50 Range/Units Serum Glucose 202 H 74-106 mg/dL Problem List Probable small bowel ileus Descending and sigmoid diverticulosis ANDIE Hypernatremia DM2 History of CVA and subdural hematoma 2018 Assessment/Plan Agree with current supportive medical care. Surgery following- recommended conservative measures. Diet advanced to full liquid. Monitor daily labs to include renal function and electrolytes. Electrolyte replacement prn. IVFs with D5 at 75 mL/hr. IV antibiotics. Antiemetics with Zofran prn. Patient is bedbound. DVT prophylaxis. Additional plan as per the hospital course. Dietary Evaluation Review Comments: 1) Continue to monitor bowel activity. If patient remains NPO for more than 7 days, consider TPN to meet at least 75% of estimated needs 2) Consult surgery 3) Advance to clear liquid diet and progress to low-fiber diet when medically feasible, pending RECYCLING COORDINATOR approval 3) Refer to outpatient RD/[facility] for weight management Expected Outcomes/Goals: 1) Receive nutrition within 7 days 2) GI symptoms to resolve 3) appetite and labs to improve 4) diet to advance Plan discussed with: Patient, Other (RN) HONEY FERRO DO May 02, 2024 19:03
[2024-05-02] MEDS: FREE WATER GT SCH (20:43)
[2024-05-02] MEDS: HYDROcodone-ACET 5/325MG TAB PO PRN (22:50)
--- NOTE | 2024-05-02 23:21 | DVH ---
Date: 05/02/2024 10:40 PM Examination: XY KUB ABDOMEN SINGLE VIEW History: wosening SBO N/V Comparison: XY KUB ABDOMEN SINGLE VIEW on DOS: 04/28/24 TECHNIQUE: Frontal views of the abdomen was obtained. FINDINGS: There is a grossly dilated small bowel distal obstruction of the small bowel would be in the differen tial. Rectosigmoid is normal. Visualized colon is normal. IMPRESSION: 1. Gross small-bowel dilation. Follow-up small bowel follow-through may be helpful
[2024-05-03] VITALS (8 sets, daily range): BP systolic 108–131; BP diastolic 64–81; PULSE 95–114; RESP 16–19; TEMP 97.5–99.3; O2SAT 90–100
[2024-05-03 06:53] LABS: Alanine Aminotransferase 14 U/L (7-40); Albumin 3.8 g/dL (3.2-4.8); Alkaline Phosphatase 65 U/L (46-116); Anion Gap 13 (5-15); Aspartate Aminotransferase 22 U/L (13-40); BUN/Creatinine Ratio 11.4 (10.0-20.0); Blood Urea Nitrogen 22 mg/dL (9-23); Calcium 9.7 mg/dL (8.7-10.4); Carbon Dioxide 22 mmol/L (20-31); Potassium 3.6 mmol/L (3.5-5.1); Total Protein 6.5 g/dL (5.7-8.2)
[2024-05-03 06:54] LABS: Bilirubin, Total 0.5 mg/dL (0.2-1.0)
[2024-05-03 07:04] LABS: Chloride 113 mmol/L (98-107); Glucose 138 mg/dL (74-106); Sodium 148 mmol/L (136-145)
[2024-05-03 07:58] LABS: Basophils # (auto) 0 10 ^3/uL (0-0.2); Basophils % (auto) 0.2 % (0.0-2.0); Eosinophils # (auto) 0.1 10 ^3/uL (0-0.8); Eosinophils % (auto) 0.9 % (0.0-7.0); Hematocrit 42.4 % (36.0-46.0); Hemoglobin 13.7 g/dL (12.2-16.2); Lymphocytes # (auto) 1.1 10 ^3/uL (0.4-5.4); Lymphocytes % (auto) 13.9 % (10.0-50.0); Mean Corpuscular Hemoglobin 30.7 pg (28.0-32.0); Mean Corpuscular Hgb Conc. 32.3 g/dL (32.0-36.0); Mean Corpuscular Volume 95.2 fL (80.0-100.0); Monocytes # (auto) 0.8 10 ^3/uL (0-1.3); Monocytes % (auto) 9.7 % (0.0-12.0); Neutrophils # (auto) 6.2 10 ^3/uL (1.6-8.6); Neutrophils % (auto) 75.3 % (37.0-80.0); Nucleated Red Blood Cells % 0.4 %; Platelet Count (auto) 341 10^3/uL (140-450); Red Blood Cells 4.45 10^6/uL (4.0-5.20); Red Cell Distribution Width 16.5 % (11.8-14.3); White Blood Cell 8.2 10^3/uL (4.4-10.8)
[2024-05-03] MEDS: ENOXAPARIN SOD 40 MG/0.4 ML SYRINGE SC SCH (10:00)
[2024-05-03] MEDS: PANTOPRAZOLE 40 MG/10 ML VIAL INJ IV SCH (10:18)
--- NOTE | 2024-05-03 11:33 | DVHPNRES ---
Progress Note Date Seen: May 03, 2024 Resident Creating Document: MARK ARCE RESIDENT Has the PT tested + for MRSA If YES, has PT been informed?: No Medical Necessity Reason Pt with a Central, PICC or Fol: No Subjective Review of Systems Julianna Gibbs is a 69-year-old female past medical history of paroxysmal atrial fibrillation on Eliquis, CVA 2016 with residual weakness, bed-bound, subdural hematoma 2018, carotid stenosis, right femoral DVT 2020, neuropathic, diabetes mellitus type 2, dementia, hyperlipidemia and hypertension who presented to the ER with a chief complaint of intractable nausea and vomiting. Patient reports that she experienced abdominal pain, started 4 days back associated with intractable nausea and vomiting which was dark yellow but not bloody. Denies passing gas. She could not keep any solid food down but could keep liquid. Says it last bowel movement was 4 days back. She lives with caregiver and is bed-bound. Denies smoking drinking or illicit drug use. On arrival, patient was tachycardic but normotensive. CT scan abdomen completed, showed Small-bowel obstruction with transition point in the right lower quadrant. Recommend surgical consultation. Further evaluation with small- bowel series with water-soluble contrast could be completed if clinically indicated. NG tube was administered with suction, patient was kept NPO, surgeon was consulted recommended a small bowel series with Gastrografin which is pending. Past medical history: See above Past surgical history : Open cholecystectomy and hysterectomy Social history: Lives with caregiver, bed-bound for the past 2 years due to stroke, denies smoking drinking or drug use Home medication: Aspirin, atorvastatin, carvedilol, enalapril, furosemide, Ozempic, Eliquis, oxybutynin, and duloxetine 04/27-Patient seen and examined at the bedside. Pending small bowel series with Gastrografin. Had a small smear like bowel movement. 04/28-patient seen and examined at bedside. Gastrografin completed, contrast identified within the colon by 4 hours. Radiologist read as small bowel ileus. Patient had 2 episodes of watery yellowish emesis in p.m. yesterday, 1 episode of yellowish emesis at 4:00 a.m. this morning. Not passing gas, absent bowel movement. No bowel movements. Spoke to Dr. Luna , recommended continuing conservative measures. 04/30 - patient seen and examined at the bedside. No emesis. Patient started to pass gas, on auscultation she has normal bowel sounds now. Over the weekend CT scan was completed which showed ileus. Surgeon saw the patient, recommended discontinuing NG tomorrow and starting clear liquid diet. Given the hypernatremia, discontinued LR, started D5. 05/01-patient seen and examined at the bedside. Surgeon recommended discontinuing NG, starting clear liquid diet. Patient has passing gas. No bowel movements. Bowel sounds are normal. 05/02-patient seen and examined at the bedside. Started lactulose 30 mL b.i.d.. Patient started throwing up the starting clear liquid diet. Patient kept NPO. 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 KUB overnight showed diffusely dilated small bowel. NGT ordered for decompression, small-bowel series ordered. Creatinine increased, urine studies ordered. Objective vital signs Vital Sign Date Time Temp Pulse Resp B/P (MAP) Pulse Ox O2 Delivery O2 Flow Rate FiO2 05/03/24 08:55 97.9 96 19 108/73 (85) 90 97.9 05/02/24 19:47 Nasal Cannula* 2 28 Total Intake and Output 05/02/24 05/02/24 05/03/24 15:00 23:00 07:00 Intake Total 2002 ml Output Total 300 ml 2300 ml Balance 1702 ml -2300 ml medications Current Medications Medications Dose Ordered Sig/Murali Route Start Time Stop Time Status Last Admin Dose Admin Metronidazole 500 mg Q8HR PO 04/27/24 06:00 Cancel Ondansetron HCl 4 mg Q6HPRN PRN IV 04/26/24 22:30 05/03/24 10:18 4 MG Ceftriaxone Sodium 50 ml @ 100 mls/hr DAILY@09 IV 04/27/24 09:00 05/03/24 10:18 100 MLS/HR Metronidazole 100 ml @ 100 mls/hr Q8HR IV 04/27/24 06:00 05/03/24 05:25 100 MLS/HR Acetaminophen 500 mg Q4HPRN PRN PO 04/27/24 15:30 Acetaminophen/ Hydrocodone Bitart 1 tab Q4HPRN PRN PO 04/27/24 15:30 05/03/24 08:40 1 TAB Gabapentin 100 mg BID PO 04/27/24 22:00 05/03/24 08:40 100 MG Morphine Sulfate 2 mg Q4HPRN PRN IV 04/29/24 12:15 05/03/24 02:51 2 MG Dextrose 1,000 ml @ 75 mls/hr [id number] IV 04/30/24 17:15 05/02/24 09:31 75 MLS/HR Lactulose 30 ml BID PO 05/02/24 10:00 05/03/24 08:40 30 ML Purified Water 250 ml BID GT 05/02/24 22:00 Metoclopramide HCl 5 mg Q6H IV 05/02/24 18:00 05/03/24 05:25 5 MG Pantoprazole Sodium 40 mg DAILY IV 05/03/24 10:00 05/03/24 10:18 40 MG Enoxaparin Sodium 40 mg DAILY SC 05/03/24 10:00 Examination Morbidly obese female patient lying in bed, in no acute distress General: Morbidly obese, afebrile, palor, mucosae are moist Cardiovascular: Regular S1 and S2. No murmurs, gallops or rubs. No JVD elevation. No pedal edema Respiratory: Normal B/L air entry on room air. Clear lung sounds on auscultation Abdomen: Abdomen is distended, tender and soft, normoactive bowel sounds, no rebound tenderness. Vertical scar seen. Genitourinary: Deferred MSK/skin: Mobilizes 4 limbs. Skin is dry and warm Neurological: No motor, no sensitive deficits, normal speech. Pupils are isocoric and reactive. Psych/Mental Status: A/Ox3 laboratory and microbiology Laboratory Tests 05/03/24 05:41 Test 05/03/24 05:41 Range/Units Serum Glucose 138 H 74-106 mg/dL Labs and/or images reviewed: Labs reviewed by me, Image(s) reviewed by me Problem List/Assessment/Plan Problem List/Assessment/Plan Probable small bowel ileus ? Complete Small-bowel obstruction Descending and sigmoid diverticulosis CT scan shows, small-bowel obstruction with transition point in the right lower quadrant Surgical consultation -recommended continued conservative measures Continue NG tube with intermittent suction, continue NPO. Discontinued NGT 05/01, started clear liquid diet, progress to full liquid diet 05/02 Continue fluid resuscitation with NG tube Ambulation can not be performed as the patient is bed-bound Empiric antibiotics IV fluids Guzman IV Rocephin X-ray small bowel series with Gastrografin shows Contrast is identified within the colon by 4 hours This represents probable small bowel ileus. IV lactated ringer switched to D5 given hyponatremia 05/03-Repeat small bowel series with Gastrografin ordered. Ordered NG tube Diabetes mellitus type 2-hemoglobin A1c pending On ISS ANDIE likely vasomotor on CKD stage IIIB On IV fluids Creatinine increased to 1.9, urine protein creatinine ratio, urine sodium pending Hypernatremia, downtrending Hypokalemia Started d5 History of CVA and subdural hematoma 2018 Holding aspirin given the likelihood of GI bleed in the dark black NG output History of hypertension, currently normotensive Holding antihypertensives at this point History of dementia Monitor Morbid obesity BMI is 41.7 Diet: Clear liquid DVT prophylaxis Lovenox 40 mg sc daily GI prophylaxis: Pantoprazole 40 mg IV b.i.d. Plan discussed with patient and caregiver essence at the bedside in which all questions have been answered Goals of care discussed with patient for more than 20 minutes, full code status Case discussed with Mendieta Plan discussed with: Patient My Orders My Orders Orders - MARK ARCE RESIDENT Procedure Category Date Status Time Free Water PHA 05/02/24 In Process 22:00 Metoclopramide PHA 05/02/24 In Process Injection (Reglan 18:00 Pantoprazole PHA 05/03/24 In Process (Protonix) 10:00 Enoxaparin Sodium PHA 05/03/24 In Process (Lovenox) 10:00 Npo (Nothing By DIET 05/02/24 Transmitted Mouth) Diet Dinner Kub Abdomen Single XY 05/02/24 Resulted View 17:06 Urinalysis LAB 05/03/24 Logged 08:05 Urine LAB 05/03/24 Logged Protein/Creatinine Urine Sodium LAB 05/03/24 Logged UNK Small Bowel Series-W XY 05/03/24 Logged Gastrogra 08:58 Place Ng ORDERS 05/03/24 Transmitted 09:29 Insert Midline ORDERS 05/03/24 Transmitted 11:05 Chest Portable XY 05/03/24 Logged 11:22 Dietary Evaluation Review Comments: 1) Continue to monitor bowel activity. If patient remains NPO for more than 7 days, consider TPN to meet at least 75% of estimated needs 2) Consult surgery 3) Advance to clear liquid diet and progress to low-fiber diet when medically feasible, pending SEAMAN approval 3) Refer to outpatient RD/CD[facility] for weight management Expected Outcomes/Goals: 1) Receive nutrition within 7 days 2) GI symptoms to resolve 3) appetite and labs to improve 4) diet to advance Date of Service: May 04, 2024 Billing Provider: DONNY MENDIETA DO Common Visit Codes: [id number] INP/OBS CARE(HIGH) MARK ARCE RESIDENT May 03, 2024 11:33 DONNY MENDIETA DO May 06, 2024 19:09
--- NOTE | 2024-05-03 11:56 | DVH ---
CHEST RADIOGRAPH Indication: NG Tube Placement Technique: Single frontal view of the chest was obtained COMPARISON: XY CHEST XRAY 1 VIEW on DOS: 04/30/24, XY CHEST PORTABLE on DOS: 04/28/24, XY CHEST XRAY 1 VIEW on DOS: 04/26/24, CHEST PORTABLE on DOS: 08/01/20 FINDINGS: Lines and Tubes: Enteric catheter in satisfactory position. Lungs: Clear Pleura: No effusion. No pneumothorax. Cardiomediastinal contours: Unremarkable Bones: Unremarkable IMPRESSION: Enteric catheter in satisfactory position
[2024-05-03] MEDS: GASTROGRAFIN 120 ML SOL ONE ×2 (15:00→15:06)
[2024-05-03 18:04] LABS: Urine Amorphous Crystal FEW /hpf (None Seen); Urine Bacteria FEW /hpf (None Seen); Urine Blood 2+ /uL (Negative); Urine Clarity Turbid (Clear); Urine Color Orange (Yellow); Urine Hyaline Cast FEW /lpf (0 - 2); Urine Mucus FEW (None Seen); Urine Protein, UAD 1+ (Negative); Urine Specific Gravity 1.029 (1.001-1.035); Urine Squamous Epithelial Cell FEW /hpf (<5); Urine Urobilinogen Normal (Negative); Urine WBC 71 /HPF (0-5); Urine pH 5.5 (5.0-9.0)
[2024-05-03 18:16] LABS: Protein, Urine 115.8 mg/dL (1-14)
[2024-05-03 18:27] LABS: Urine Protein/Creatinine Ratio 0.45
[2024-05-03 19:08] LABS: Creatinine, Urine 256.33 mg/dL (30.0-125.0)
--- NOTE | 2024-05-03 20:17 | DVHPN2 ---
Progress Note - Dictate Date Seen: May 03, 2024 Has the PT tested + for MRSA If YES, has PT been informed?: No Medical Necessity Reason Pt with a Central, PICC or Fol: No Subjective Patient was seen and evaluated in follow up. Chart/events reviewed. Patient reported having multiple episodes of yellow emesis. KUB overnight showed diffusely dilated small bowel. Creatinine increased to 1.93. eGFR 28. Na 148. vital signs Vital Sign Date Time Temp Pulse Resp B/P (MAP) Pulse Ox O2 Delivery O2 Flow Rate FiO2 05/03/24 16:55 98.1 100 17 131/81 (98) 100 98.1 05/03/24 08:00 Nasal Cannula* 2 28 Total Intake and Output 05/02/24 05/02/24 05/03/24 15:00 23:00 07:00 Intake Total 2002 ml Output Total 300 ml 2300 ml Balance 1702 ml -2300 ml medications Current Medications Medications Dose Ordered Sig/Murali Route Start Time Stop Time Status Last Admin Dose Admin Metronidazole 500 mg Q8HR PO 04/27/24 06:00 Cancel Ondansetron HCl 4 mg Q6HPRN PRN IV 04/26/24 22:30 05/03/24 10:18 4 MG Ceftriaxone Sodium 50 ml @ 100 mls/hr DAILY@09 IV 04/27/24 09:00 05/03/24 10:18 100 MLS/HR Metronidazole 100 ml @ 100 mls/hr Q8HR IV 04/27/24 06:00 05/03/24 14:31 100 MLS/HR Acetaminophen 500 mg Q4HPRN PRN PO 04/27/24 15:30 Acetaminophen/ Hydrocodone Bitart 1 tab Q4HPRN PRN PO 04/27/24 15:30 05/03/24 08:40 1 TAB Gabapentin 100 mg BID PO 04/27/24 22:00 05/03/24 08:40 100 MG Morphine Sulfate 2 mg Q4HPRN PRN IV 04/29/24 12:15 05/03/24 02:51 2 MG Dextrose 1,000 ml @ 75 mls/hr [id number] IV 04/30/24 17:15 05/02/24 09:31 75 MLS/HR Lactulose 30 ml BID PO 05/02/24 10:00 05/03/24 08:40 30 ML Purified Water 250 ml BID GT 05/02/24 22:00 Metoclopramide HCl 5 mg Q6H IV 05/02/24 18:00 05/03/24 17:42 5 MG Pantoprazole Sodium 40 mg DAILY IV 05/03/24 10:00 05/03/24 10:18 40 MG Enoxaparin Sodium 40 mg DAILY SC 05/03/24 10:00 objective Vitals and nursing notes reviewed. General: Morbidly obese female patient lying in bed, in no acute distress Eyes: Pupils are isocoric and reactive. Cardiovascular: Regular S1 and S2. No murmurs, gallops or rubs. No JVD elevation. No pedal edema Respiratory: Normal B/L air entry on room air. Clear lung sounds on auscultation Abdomen: Abdomen is distended, tender and soft, normoactive bowel sounds, no rebound tenderness. Vertical scar seen. MSK/skin: Mobilizes 4 limbs. Skin is dry and warm Neurological: No motor, no sensitive deficits, normal speech. Psych/Mental Status: A/Ox3 laboratory and microbiology Laboratory Tests 05/03/24 05:41 Test 05/03/24 05:41 Range/Units Serum Glucose 138 H 74-106 mg/dL Problem List Probable small bowel ileus Descending and sigmoid diverticulosis ANDIE Hypernatremia DM2 History of CVA and subdural hematoma 2018 Assessment/Plan Agree with current supportive medical care. Surgery following- recommended conservative measures. NGT to low intermittent suction. Small-bowel series ordered/pending. Monitor daily labs to include renal function and electrolytes. Electrolyte replacement prn. IVFs with D5 at 75 mL/hr. NPO. IV antibiotics. Antiemetics with Zofran prn. Patient is bedbound. DVT prophylaxis. Additional plan as per the hospital course. Dietary Evaluation Review Comments: 1) Continue to monitor bowel activity. If patient remains NPO for more than 7 days, consider TPN to meet at least 75% of estimated needs 2) Consult surgery 3) Advance to clear liquid diet and progress to low-fiber diet when medically feasible, pending DEVELOPMENT SYSTEM EFFICIENCY MANAGER approval 3) Refer to outpatient RD/[facility] for weight management Expected Outcomes/Goals: 1) Receive nutrition within 7 days 2) GI symptoms to resolve 3) appetite and labs to improve 4) diet to advance Plan discussed with: Patient, Other (RN) HONEY FERRO DO May 03, 2024:17
--- NOTE | 2024-05-03 21:16 | DVH ---
Procedure: XY SMALL BOWEL SERIES-W GASTROGRA Reason for study/Clinical History: Rule Out SBO Comparison Study: None available at time of dictation. Technique: Single contrast small bowel series performed. FINDINGS/IMPRESSION: Initial payroll accounting clerk view of the abdomen and pelvis appears demonstrates no acute process. Contrast is identified within the colon by less than 5 hours. This represents a normal small bowel t ransit time.
[2024-05-04] VITALS (8 sets, daily range): BP systolic 102–131; BP diastolic 62–82; PULSE 83–99; RESP 16–20; TEMP 97.1–99.8; O2SAT 97–100
[2024-05-04] MEDS: METOCLOPRAMIDE HCL 5MG/ml INJ 2ml VIAL IV SCH (08:30)
--- NOTE | 2024-05-04 15:17 | DVHPNRES ---
Progress Note Date Seen: May 04, 2024 Resident Creating Document: MARK ARCE RESIDENT Has the PT tested + for MRSA If YES, has PT been informed?: No Medical Necessity Reason Pt with a Central, PICC or Fol: No Subjective Review of Systems Julianna Gibbs is a 69-year-old female past medical history of paroxysmal atrial fibrillation on Eliquis, CVA 2016 with residual weakness, bed-bound, subdural hematoma 2018, carotid stenosis, right femoral DVT 2020, neuropathic, diabetes mellitus type 2, dementia, hyperlipidemia and hypertension who presented to the ER with a chief complaint of intractable nausea and vomiting. Patient reports that she experienced abdominal pain, started 4 days back associated with intractable nausea and vomiting which was dark yellow but not bloody. Denies passing gas. She could not keep any solid food down but could keep liquid. Says it last bowel movement was 4 days back. She lives with caregiver and is bed-bound. Denies smoking drinking or illicit drug use. On arrival, patient was tachycardic but normotensive. CT scan abdomen completed, showed Small-bowel obstruction with transition point in the right lower quadrant. Recommend surgical consultation. Further evaluation with small- bowel series with water-soluble contrast could be completed if clinically indicated. NG tube was administered with suction, patient was kept NPO, surgeon was consulted recommended a small bowel series with Gastrografin which is pending. Past medical history: See above Past surgical history : Open cholecystectomy and hysterectomy Social history: Lives with caregiver, bed-bound for the past 2 years due to stroke, denies smoking drinking or drug use Home medication: Aspirin, atorvastatin, carvedilol, enalapril, furosemide, Ozempic, Eliquis, oxybutynin, and duloxetine 04/27-Patient seen and examined at the bedside. Pending small bowel series with Gastrografin. Had a small smear like bowel movement. 04/28-patient seen and examined at bedside. Gastrografin completed, contrast identified within the colon by 4 hours. Radiologist read as small bowel ileus. Patient had 2 episodes of watery yellowish emesis in p.m. yesterday, 1 episode of yellowish emesis at 4:00 a.m. this morning. Not passing gas, absent bowel movement. No bowel movements. Spoke to Dr. Luna , recommended continuing conservative measures. 04/30 - patient seen and examined at the bedside. No emesis. Patient started to pass gas, on auscultation she has normal bowel sounds now. Over the weekend CT scan was completed which showed ileus. Surgeon saw the patient, recommended discontinuing NG tomorrow and starting clear liquid diet. Given the hypernatremia, discontinued LR, started D5. 05/01-patient seen and examined at the bedside. Surgeon recommended discontinuing NG, starting clear liquid diet. Patient has passing gas. No bowel movements. Bowel sounds are normal. 05/02-patient seen and examined at the bedside. Started lactulose 30 mL b.i.d.. Patient started throwing up the starting clear liquid diet. Patient kept NPO. 05/03-patient had multiple episodes of yellowish emesis even being on roving inspector.o.. KUB overnight showed diffusely dilated small bowel. NGT ordered for decompression, small-bowel series ordered. Creatinine increased, urine studies ordered. 05/04-patient seen and examined at the bedside. Normoactive bowel sounds, passing gas. Patient had bowel movement this morning. Gastric Emptying study could not be completed until Tuesday. Discontinued NG, started clear liquid diet which the patient is tolerating fine for now. Objective vital signs Vital Sign Date Time Temp Pulse Resp B/P (MAP) Pulse Ox O2 Delivery O2 Flow Rate FiO2 05/04/24 09:00 97.4 99 20 108/62 (77) 98 97.4 05/04/24 08:00 Nasal Cannula* 2 28 Total Intake and Output 05/03/24 05/03/24 05/04/24 15:00 23:00 07:00 Intake Total 50 ml 725 ml 575 ml Output Total 950 ml 125 ml 100 ml Balance -900 ml 600 ml 475 ml medications Current Medications Medications Dose Ordered Sig/Murali Route Start Time Stop Time Status Last Admin Dose Admin Metronidazole 500 mg Q8HR PO 04/27/24 06:00 Cancel Ondansetron HCl 4 mg Q6HPRN PRN IV 04/26/24 22:30 05/03/24 10:18 4 MG Ceftriaxone Sodium 50 ml @ 100 mls/hr DAILY@09 IV 04/27/24 09:00 05/04/24 09:57 100 MLS/HR Metronidazole 100 ml @ 100 mls/hr Q8HR IV 04/27/24 06:00 05/04/24 14:10 100 MLS/HR Acetaminophen 500 mg Q4HPRN PRN PO 04/27/24 15:30 Acetaminophen/ Hydrocodone Bitart 1 tab Q4HPRN PRN PO 04/27/24 15:30 05/03/24 08:40 1 TAB Gabapentin 100 mg BID PO 04/27/24 22:00 05/03/24 08:40 100 MG Morphine Sulfate 2 mg Q4HPRN PRN IV 04/29/24 12:15 05/03/24 02:51 2 MG Dextrose 1,000 ml @ 75 mls/hr [id number] IV 04/30/24 17:15 05/04/24 01:50 75 MLS/HR Lactulose 30 ml BID PO 05/02/24 10:00 05/03/24 08:40 30 ML Purified Water 250 ml BID GT 05/02/24 22:00 Pantoprazole Sodium 40 mg DAILY IV 05/03/24 10:00 05/04/24 09:57 40 MG Enoxaparin Sodium 40 mg DAILY SC 05/03/24 10:00 Metoclopramide HCl 5 mg Q8HR IV 05/04/24 08:30 05/04/24 14:11 5 MG Examination Morbidly obese female patient lying in bed, in no acute distress General: Morbidly obese, afebrile, palor, mucosae are moist Cardiovascular: Regular S1 and S2. No murmurs, gallops or rubs. No JVD elevation. No pedal edema Respiratory: Normal B/L air entry on room air. Clear lung sounds on auscultation Abdomen: Abdomen is distended, tender and soft, normoactive bowel sounds, no rebound tenderness. Vertical scar seen. Genitourinary: Deferred MSK/skin: Mobilizes 4 limbs. Skin is dry and warm Neurological: No motor, no sensitive deficits, normal speech. Pupils are isocoric and reactive. Psych/Mental Status: A/Ox3 laboratory and microbiology Laboratory Tests 05/03/24 05:41 Test 05/03/24 05:41 Range/Units Serum Glucose 138 H 74-106 mg/dL Labs and/or images reviewed: Labs reviewed by me, Image(s) reviewed by me Problem List/Assessment/Plan Problem List/Assessment/Plan Probable small bowel ileus ? Complete Small-bowel obstruction Descending and sigmoid diverticulosis CT scan shows, small-bowel obstruction with transition point in the right lower quadrant Surgical consultation -recommended continued conservative measures Continue NG tube with intermittent suction, continue NPO. Discontinued NGT 05/01, started clear liquid diet, progress to full liquid diet 05/02 Continue fluid resuscitation with NG tube Ambulation can not be performed as the patient is bed-bound Empiric antibiotics IV fluids Guzman IV Rocephin X-ray small bowel series with Gastrografin shows Contrast is identified within the colon by 4 hours This represents probable small bowel ileus. IV lactated ringer switched to D5 given hyponatremia 05/03-Repeat small bowel series with Gastrografin ordered, showed Contrast is identified within the colon by less than 5 hours. This represents a normal small bowel transit time. 05/04-discontinued NG. Started clear liquid diet. Gastric emptying study pending Diabetes mellitus type 2-hemoglobin A1c pending On ISS ANDIE likely vasomotor on CKD stage IIIB On IV fluids Creatinine increased to 1.9, urine protein creatinine ratio, urine sodium pending Hypernatremia, downtrending Hypokalemia Started d5 History of CVA and subdural hematoma 2018 Holding aspirin given the likelihood of GI bleed in the dark black NG output History of hypertension, currently normotensive Holding antihypertensives at this point History of dementia Monitor Morbid obesity BMI is 41.7 Diet: Clear liquid DVT prophylaxis Lovenox 40 mg sc daily GI prophylaxis: Pantoprazole 40 mg IV b.i.d. Plan discussed with patient and caregiver essence at the bedside in which all questions have been answered Goals of care discussed with patient for more than 20 minutes, full code status Case discussed with Mendieta Plan discussed with: Patient My Orders My Orders Orders - MARK ARCE RESIDENT Procedure Category Date Status Time Communication Order ORDERS 05/03/24 Transmitted 17:23 Metoclopramide PHA 05/04/24 In Process Injection (Reglan 08:30 Gastric Empting Study NM 05/04/24 Logged 08:22 Discontinue Ng ORDERS 05/04/24 Transmitted 08:58 Clear Liq Diet DIET 05/04/24 Transmitted Breakfast Communication Order ORDERS 05/04/24 Transmitted 08:58 Complete Blood Count LAB 05/04/24 Logged 13:58 Comprehensive LAB 05/04/24 Logged Metabolic Panel 13:58 Dietary Evaluation Review Comments: 1) Continue to monitor bowel activity. If patient remains NPO for more than 7 days, consider TPN to meet at least 75% of estimated needs 2) Consult surgery 3) Advance to clear liquid diet and progress to low-fiber diet when medically feasible, pending ACCOUNT GROUP SUPERVISOR approval 3) Refer to outpatient RD/[facility] for weight management Expected Outcomes/Goals: 1) Receive nutrition within 7 days 2) GI symptoms to resolve 3) appetite and labs to improve 4) diet to advance Date of Service: May 05, 2024 Billing Provider: DONNY MENDIETA DO Common Visit Codes: [id number] INP/OBS CARE(HIGH) MARK ARCE RESIDENT May 04, 2024 15:17 DONNY MENDIETA DO May 06, 2024 19:09
[2024-05-04 16:58] LABS: Hematocrit 36.7 % (36.0-46.0); Hemoglobin 11.4 g/dL (12.2-16.2); Mean Corpuscular Hemoglobin 30.4 pg (28.0-32.0); Mean Corpuscular Hgb Conc. 31.2 g/dL (32.0-36.0); Mean Corpuscular Volume 97.4 fL (80.0-100.0); Platelet Count (auto) 311 10^3/uL (140-450); Red Blood Cells 3.77 10^6/uL (4.0-5.20); Red Cell Distribution Width 16.6 % (11.8-14.3); White Blood Cell 28.7 10^3/uL (4.4-10.8)
[2024-05-04 17:00] LABS: Band Neutrophils % (manual) 0; Basophils % (manual) 0 (0.0-2.0); Blast Cells 0; Eosinophils % (manual) 0 (0-7); Metamyelocytes % 0; Promyelocytes % 0; Reactive Lymphocytes 0
[2024-05-04 17:15] LABS: Alanine Aminotransferase 10 U/L (7-40); Albumin 3.5 g/dL (3.2-4.8); Alkaline Phosphatase 63 U/L (46-116); Anion Gap 12 (5-15); BUN/Creatinine Ratio 10.2 (10.0-20.0); Bilirubin, Total 0.3 mg/dL (0.2-1.0); Blood Urea Nitrogen 19 mg/dL (9-23); Calcium 9.1 mg/dL (8.7-10.4); Chloride 107 mmol/L (98-107); Sodium 138 mmol/L (136-145); Total Protein 6.1 g/dL (5.7-8.2)
[2024-05-04 17:16] LABS: Aspartate Aminotransferase 10 U/L (13-40); Carbon Dioxide 19 mmol/L (20-31); Glucose 267 mg/dL (74-106); Potassium 3.3 mmol/L (3.5-5.1)
[2024-05-04 19:34] LABS: Lymphocytes % (manual) 9 (10.0-50.0); Monocytes % (manual) 3 (0-12); Myelocytes % 1; Platelet Estimate Adequate
--- NOTE | 2024-05-04 19:36 | DVHPN2 ---
Progress Note - Dictate Date Seen: May 04, 2024 Has the PT tested + for MRSA If YES, has PT been informed?: No Medical Necessity Reason Pt with a Central, PICC or Fol: No Subjective Patient was seen and evaluated in follow up. Chart/events reviewed. Patient reports having a bowel movement this morning and passing gas. NG tube has been discontinued. Started on clear liquid diet. Labs are remarkable for Creatinine 1.86. eGFR 29. K 3.3. CO2 19. Glucose 267. vital signs Vital Sign Date Time Temp Pulse Resp B/P (MAP) Pulse Ox O2 Delivery O2 Flow Rate FiO2 05/04/24 17:00 97.1 83 20 121/62 (81) 100 97.1 05/04/24 08:00 Nasal Cannula* 2 28 Total Intake and Output 05/03/24 05/03/24 05/04/24 15:00 23:00 07:00 Intake Total 50 ml 725 ml 575 ml Output Total 950 ml 125 ml 100 ml Balance -900 ml 600 ml 475 ml medications Current Medications Medications Dose Ordered Sig/Murali Route Start Time Stop Time Status Last Admin Dose Admin Metronidazole 500 mg Q8HR PO 04/27/24 06:00 Cancel Ondansetron HCl 4 mg Q6HPRN PRN IV 04/26/24 22:30 05/03/24 10:18 4 MG Ceftriaxone Sodium 50 ml @ 100 mls/hr DAILY@09 IV 04/27/24 09:00 05/04/24 09:57 100 MLS/HR Metronidazole 100 ml @ 100 mls/hr Q8HR IV 04/27/24 06:00 05/04/24 14:10 100 MLS/HR Acetaminophen 500 mg Q4HPRN PRN PO 04/27/24 15:30 Acetaminophen/ Hydrocodone Bitart 1 tab Q4HPRN PRN PO 04/27/24 15:30 05/03/24 08:40 1 TAB Gabapentin 100 mg BID PO 04/27/24 22:00 05/03/24 08:40 100 MG Morphine Sulfate 2 mg Q4HPRN PRN IV 04/29/24 12:15 05/03/24 02:51 2 MG Dextrose 1,000 ml @ 75 mls/hr [id number] IV 04/30/24 17:15 05/04/24 16:01 75 MLS/HR Lactulose 30 ml BID PO 05/02/24 10:00 05/03/24 08:40 30 ML Purified Water 250 ml BID GT 05/02/24 22:00 Pantoprazole Sodium 40 mg DAILY IV 05/03/24 10:00 05/04/24 09:57 40 MG Metoclopramide HCl 5 mg Q8HR IV 05/04/24 08:30 05/04/24 14:11 5 MG Enoxaparin Sodium 30 mg DAILY SC 05/05/24 10:00 objective Vitals and nursing notes reviewed. General: Morbidly obese female patient lying in bed, in no acute distress Eyes: Pupils are isocoric and reactive. Cardiovascular: Regular S1 and S2. No murmurs, gallops or rubs. No JVD elevation. No pedal edema Respiratory: Normal B/L air entry on room air. Clear lung sounds on auscultation Abdomen: Abdomen is distended, tender and soft, normoactive bowel sounds, no rebound tenderness. Vertical scar seen. MSK/skin: Mobilizes 4 limbs. Skin is dry and warm Neurological: No motor, no sensitive deficits, normal speech. Psych/Mental Status: A/Ox3 laboratory and microbiology Laboratory Tests 05/04/24 16:20 Test 05/04/24 16:20 Range/Units Serum Glucose 267 H 74-106 mg/dL Problem List Probable small bowel ileus Descending and sigmoid diverticulosis ANDIE Hypernatremia DM2 History of CVA and subdural hematoma 2019 Assessment/Plan Agree with current supportive medical care. NGT discontinued. Started on clear liquid diet. Surgery following. Monitor daily labs to include renal function and electrolytes. Electrolyte replacement prn. IVFs with D5 at 75 mL/hr. IV antibiotics. Antiemetics with Zofran prn. Patient is bedbound. DVT prophylaxis. Additional plan as per the hospital course. Dietary Evaluation Review Comments: 1) Continue to monitor bowel activity. If patient remains NPO for more than 7 days, consider TPN to meet at least 75% of estimated needs 2) Consult surgery 3) Advance to clear liquid diet and progress to low-fiber diet when medically feasible, pending WEATHER STRIP MECHANIC approval 3) Refer to outpatient RD/[facility] for weight management Expected Outcomes/Goals: 1) Receive nutrition within 7 days 2) GI symptoms to resolve 3) appetite and labs to improve 4) diet to advance Plan discussed with: Patient, Other (RN) HONEY FERRO DO May 04, 2024 19:36
[2024-05-05] VITALS (9 sets, daily range): BP systolic 92–128; BP diastolic 56–70; PULSE 85–102; RESP 16–18; TEMP 98.5–99.7; O2SAT 98–100
[2024-05-05 07:36] LABS: Hematocrit 33.9 % (36.0-46.0); Hemoglobin 10.9 g/dL (12.2-16.2); Mean Corpuscular Hemoglobin 30.7 pg (28.0-32.0); Mean Corpuscular Hgb Conc. 32.2 g/dL (32.0-36.0); Mean Corpuscular Volume 95.4 fL (80.0-100.0); Platelet Count (auto) 273 10^3/uL (140-450); Red Blood Cells 3.55 10^6/uL (4.0-5.20); Red Cell Distribution Width 16.6 % (11.8-14.3); White Blood Cell 28.5 10^3/uL (4.4-10.8)
[2024-05-05 07:43] LABS: Band Neutrophils % (manual) 0; Basophils % (manual) 0 (0.0-2.0); Blast Cells 0; Eosinophils % (manual) 0 (0-7); Metamyelocytes % 0; Myelocytes % 0; Promyelocytes % 0; Reactive Lymphocytes 0
[2024-05-05 07:57] LABS: Albumin 3.3 g/dL (3.2-4.8); Alkaline Phosphatase 67 U/L (46-116); Anion Gap 10 (5-15); BUN/Creatinine Ratio 9.3 (10.0-20.0); Bilirubin, Total 0.3 mg/dL (0.2-1.0); Blood Urea Nitrogen 14 mg/dL (9-23); Carbon Dioxide 22 mmol/L (20-31); Chloride 104 mmol/L (98-107); Magnesium 1.8 mg/dL (1.6-2.6); Sodium 136 mmol/L (136-145); Total Protein 5.9 g/dL (5.7-8.2)
[2024-05-05 07:59] LABS: Lymphocytes % (manual) 3 (10.0-50.0); Monocytes % (manual) 10 (0-12); Platelet Estimate Adequate
[2024-05-05 08:01] LABS: Alanine Aminotransferase < 9 U/L (7-40); Aspartate Aminotransferase 10 U/L (13-40); Glucose 196 mg/dL (74-106); Potassium 3.2 mmol/L (3.5-5.1)
[2024-05-05] MEDS: ENOXAPARIN SOD 30 MG/0.3 ML SYRINGE SC SCH (10:55)
--- NOTE | 2024-05-05 18:26 | DVHPN2 ---
Progress Note - Dictate Date Seen: May 05, 2024 Has the PT tested + for MRSA If YES, has PT been informed?: No Medical Necessity Reason Pt with a Central, PICC or Fol: No Subjective Patient was seen and evaluated in follow up. No acute events overnight. Patient continues on clear liquid diet. No new complaints. Creatinine decreased to 1.51. K 3.2. vital signs Vital Sign Date Time Temp Pulse Resp B/P (MAP) Pulse Ox O2 Delivery O2 Flow Rate FiO2 05/05/24 17:10 86 18 105/62 (76) 100 05/05/24 16:55 98.5 98.5 05/05/24 08:00 Nasal Cannula* 2 28 Total Intake and Output 05/04/24 05/04/24 05/05/24 15:00 23:00 07:00 Intake Total 50 ml 1025 ml 1400 ml Output Total 200 ml 500 ml Balance 50 ml 825 ml 900 ml medications Current Medications Medications Dose Ordered Sig/Murali Route Start Time Stop Time Status Last Admin Dose Admin Metronidazole 500 mg Q8HR PO 04/27/24 06:00 Cancel Ondansetron HCl 4 mg Q6HPRN PRN IV 04/26/24 22:30 05/03/24 10:18 4 MG Ceftriaxone Sodium 50 ml @ 100 mls/hr DAILY@09 IV 04/27/24 09:00 05/05/24 10:56 100 MLS/HR Metronidazole 100 ml @ 100 mls/hr Q8HR IV 04/27/24 06:00 05/05/24 16:04 100 MLS/HR Acetaminophen 500 mg Q4HPRN PRN PO 04/27/24 15:30 Acetaminophen/ Hydrocodone Bitart 1 tab Q4HPRN PRN PO 04/27/24 15:30 05/03/24 08:40 1 TAB Gabapentin 100 mg BID PO 04/27/24 22:00 05/05/24 10:55 100 MG Morphine Sulfate 2 mg Q4HPRN PRN IV 04/29/24 12:15 05/03/24 02:51 2 MG Dextrose 1,000 ml @ 75 mls/hr [id number] IV 04/30/24 17:15 05/05/24 17:15 75 MLS/HR Lactulose 30 ml BID PO 05/02/24 10:00 05/05/24 10:55 30 ML Purified Water 250 ml BID GT 05/02/24 22:00 Pantoprazole Sodium 40 mg DAILY IV 05/03/24 10:00 05/05/24 10:56 40 MG Metoclopramide HCl 5 mg Q8HR IV 05/04/24 08:30 05/05/24 16:04 5 MG Enoxaparin Sodium 30 mg DAILY SC 05/05/24 10:00 05/05/24 10:55 30 MG objective Vitals and nursing notes reviewed. General: Morbidly obese female patient lying in bed, in no acute distress Eyes: Pupils are isocoric and reactive. Cardiovascular: Regular S1 and S2. No murmurs, gallops or rubs. No JVD elevation. No pedal edema Respiratory: Normal B/L air entry on room air. Clear lung sounds on auscultation Abdomen: Abdomen is distended, tender and soft, normoactive bowel sounds, no rebound tenderness. Vertical scar seen. MSK/skin: Mobilizes 4 limbs. Skin is dry and warm Neurological: No motor, no sensitive deficits, normal speech. Psych/Mental Status: A/Ox3 laboratory and microbiology Laboratory Tests 05/05/24 07:08 Test 05/05/24 07:08 Range/Units Serum Glucose 196 H 74-106 mg/dL Problem List Probable small bowel ileus Descending and sigmoid diverticulosis ANDIE Hypernatremia DM2 History of CVA and subdural hematoma 2018 Assessment/Plan Agree with current supportive medical care. Continues on clear liquid diet. Surgery following. Monitor daily labs to include renal function and electrolytes. Electrolyte replacement prn. IVFs with D5 at 75 mL/hr. IV antibiotics. Patient is bedbound. DVT prophylaxis. Additional plan as per the hospital course. Dietary Evaluation Review Comments: 1) Continue to monitor bowel activity. If patient remains NPO for more than 7 days, consider TPN to meet at least 75% of estimated needs 2) Consult surgery 3) Advance to clear liquid diet and progress to low-fiber diet when medically feasible, pending PATROL DRIVER approval 3) Refer to outpatient RD/CD[facility] for weight management Expected Outcomes/Goals: 1) Receive nutrition within 7 days 2) GI symptoms to resolve 3) appetite and labs to improve 4) diet to advance Plan discussed with: Patient, Other (RN) HONEY FERRO DO May 05, 2024 18:26
[2024-05-06] VITALS (9 sets, daily range): BP systolic 89–130; BP diastolic 48–76; PULSE 81–100; RESP 15–18; TEMP 98.6–99.3; O2SAT 94–100
[2024-05-06] MEDS: SODIUM CHLORIDE 0.9% 1,450 ML IV ONE (01:20)
[2024-05-06 11:29] LABS: Basophils # (auto) 0 10 ^3/uL (0-0.2); Basophils % (auto) 0.1 % (0.0-2.0); Eosinophils # (auto) 0.1 10 ^3/uL (0-0.8); Eosinophils % (auto) 0.6 % (0.0-7.0); Hemoglobin 10.8 g/dL (12.2-16.2); Lymphocytes # (auto) 0.6 10 ^3/uL (0.4-5.4); Lymphocytes % (auto) 3.2 % (10.0-50.0); Mean Corpuscular Hemoglobin 30.1 pg (28.0-32.0); Mean Corpuscular Hgb Conc. 31.8 g/dL (32.0-36.0); Mean Corpuscular Volume 94.7 fL (80.0-100.0); Monocytes # (auto) 1.2 10 ^3/uL (0-1.3); Monocytes % (auto) 6.6 % (0.0-12.0); Neutrophils # (auto) 16.5 10 ^3/uL (1.6-8.6); Neutrophils % (auto) 89.5 % (37.0-80.0); Nucleated Red Blood Cells % 0.1 %; Platelet Count (auto) 282 10^3/uL (140-450); Red Blood Cells 3.59 10^6/uL (4.0-5.20); Red Cell Distribution Width 16.4 % (11.8-14.3); White Blood Cell 18.4 10^3/uL (4.4-10.8)
[2024-05-06 11:55] LABS: Alkaline Phosphatase 71 U/L (46-116); Anion Gap 10 (5-15); BUN/Creatinine Ratio 9.2 (10.0-20.0); Blood Urea Nitrogen 12 mg/dL (9-23); Carbon Dioxide 22 mmol/L (20-31); Chloride 106 mmol/L (98-107); Sodium 138 mmol/L (136-145)
[2024-05-06 11:56] LABS: Bilirubin, Total 0.3 mg/dL (0.2-1.0)
[2024-05-06 11:58] LABS: Alanine Aminotransferase < 9 U/L (7-40); Aspartate Aminotransferase < 8 U/L (13-40); Calcium 8.5 mg/dL (8.7-10.4); Glucose 294 mg/dL (74-106); Lactic Acid w/Reflex 2.9 mmol/L (0.4-2.0); Potassium 3.3 mmol/L (3.5-5.1); Total Protein 5.7 g/dL (5.7-8.2)
[2024-05-06 11:59] LABS: Albumin 3.1 g/dL (3.2-4.8)
[2024-05-06] MEDS: SODIUM CHLORIDE 0.9% 1,000 ML IV SCH (14:16)
[2024-05-06] MEDS: SODIUM CHLORIDE 0.9% 500 ML IV ONE (14:16)
--- NOTE | 2024-05-06 15:30 | DVHPNRES ---
Progress Note Date Seen: May 06, 2024 Resident Creating Document: MARK ARCE RESIDENT Has the PT tested + for MRSA If YES, has PT been informed?: No Medical Necessity Reason Pt with a Central, PICC or Fol: No Subjective Review of Systems Julianna Gibbs is a 69-year-old female past medical history of paroxysmal atrial fibrillation on Eliquis, CVA 2016 with residual weakness, bed-bound, subdural hematoma 2018, carotid stenosis, right femoral DVT 2020, neuropathic, diabetes mellitus type 2, dementia, hyperlipidemia and hypertension who presented to the ER with a chief complaint of intractable nausea and vomiting. Patient reports that she experienced abdominal pain, started 4 days back associated with intractable nausea and vomiting which was dark yellow but not bloody. Denies passing gas. She could not keep any solid food down but could keep liquid. Says it last bowel movement was 4 days back. She lives with caregiver and is bed-bound. Denies smoking drinking or illicit drug use. On arrival, patient was tachycardic but normotensive. CT scan abdomen completed, showed Small-bowel obstruction with transition point in the right lower quadrant. Recommend surgical consultation. Further evaluation with small- bowel series with water-soluble contrast could be completed if clinically indicated. NG tube was administered with suction, patient was kept NPO, surgeon was consulted recommended a small bowel series with Gastrografin which is pending. Past medical history: See above Past surgical history : Open cholecystectomy and hysterectomy Social history: Lives with caregiver, bed-bound for the past 2 years due to stroke, denies smoking drinking or drug use Home medication: Aspirin, atorvastatin, carvedilol, enalapril, furosemide, Ozempic, Eliquis, oxybutynin, and duloxetine 04/27-Patient seen and examined at the bedside. Pending small bowel series with Gastrografin. Had a small smear like bowel movement. 04/28-patient seen and examined at bedside. Gastrografin completed, contrast identified within the colon by 4 hours. Radiologist read as small bowel ileus. Patient had 2 episodes of watery yellowish emesis in p.m. yesterday, 1 episode of yellowish emesis at 4:00 a.m. this morning. Not passing gas, absent bowel movement. No bowel movements. Spoke to Dr. Luna , recommended continuing conservative measures. 04/30 - patient seen and examined at the bedside. No emesis. Patient started to pass gas, on auscultation she has normal bowel sounds now. Over the weekend CT scan was completed which showed ileus. Surgeon saw the patient, recommended discontinuing NG tomorrow and starting clear liquid diet. Given the hypernatremia, discontinued LR, started D5. 05/01-patient seen and examined at the bedside. Surgeon recommended discontinuing NG, starting clear liquid diet. Patient has passing gas. No bowel movements. Bowel sounds are normal. 05/02-patient seen and examined at the bedside. Started lactulose 30 mL b.i.d.. Patient started throwing up the starting clear liquid diet. Patient kept NPO. 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 KUB overnight showed diffusely dilated small bowel. NGT ordered for decompression, small-bowel series ordered. Creatinine increased, urine studies ordered. 05/04-patient seen and examined at the bedside. Normoactive bowel sounds, passing gas. Patient had bowel movement this morning. Gastric Emptying study could not be completed until Tuesday. Discontinued NG, started clear liquid diet which the patient is tolerating fine for now. 05/06 - patient denies abdominal pain, reports pain in the hip. On examination she has sacral tear, wound care consulted. Patient passed BM overnight, bowel sounds normoactive, passing gas. WBC trended to 28.5, downtrending to 18. Lactic acid 2.9. IV normal saline started. Blood culture ordered. COVID, flu ordered. UA ordered. Change Radford catheter. Creatinine downtrending to 1.3. Objective vital signs Vital Sign Date Time Temp Pulse Resp B/P (MAP) Pulse Ox O2 Delivery O2 Flow Rate FiO2 05/06/24 12:29 99.3 83 18 105/67 (80) 98 99.3 05/06/24 08:00 Nasal Cannula* 2 28 Total Intake and Output 05/05/24 05/05/24 05/06/24 15:00 23:00 07:00 Intake Total 545 ml 2050 ml Output Total 850 ml 900 ml Balance -305 ml 1150 ml medications Current Medications Medications Dose Ordered Sig/Murali Route Start Time Stop Time Status Last Admin Dose Admin Metronidazole 500 mg Q8HR PO 04/27/24 06:00 Cancel Ondansetron HCl 4 mg Q6HPRN PRN IV 04/26/24 22:30 05/03/24 10:18 4 MG Ceftriaxone Sodium 50 ml @ 100 mls/hr DAILY@09 IV 04/27/24 09:00 05/06/24 10:41 100 MLS/HR Metronidazole 100 ml @ 100 mls/hr Q8HR IV 04/27/24 06:00 05/06/24 14:16 100 MLS/HR Acetaminophen 500 mg Q4HPRN PRN PO 04/27/24 15:30 Acetaminophen/ Hydrocodone Bitart 1 tab Q4HPRN PRN PO 04/27/24 15:30 05/03/24 08:40 1 TAB Gabapentin 100 mg BID PO 04/27/24 22:00 05/06/24 10:38 100 MG Morphine Sulfate 2 mg Q4HPRN PRN IV 04/29/24 12:15 05/03/24 02:51 2 MG Lactulose 30 ml BID PO 05/02/24 10:00 05/06/24 10:39 30 ML Purified Water 250 ml BID GT 05/02/24 22:00 Pantoprazole Sodium 40 mg DAILY IV 05/03/24 10:00 05/06/24 10:40 40 MG Metoclopramide HCl 5 mg Q8HR IV 05/04/24 08:30 05/06/24 14:17 5 MG Enoxaparin Sodium 30 mg DAILY SC 05/05/24 10:00 05/06/24 10:40 30 MG Sodium Chloride 1,000 ml @ 100 mls/hr Q10H IV 05/06/24 13:00 05/06/24 14:16 100 MLS/HR Examination orbidly obese female patient lying in bed, in no acute distress General: Morbidly obese, afebrile, palor, mucosae are moist Cardiovascular: Regular S1 and S2. No murmurs, gallops or rubs. No JVD elevation. No pedal edema Respiratory: Normal B/L air entry on room air. Clear lung sounds on auscultation Abdomen: Abdomen is distended, tender and soft, normoactive bowel sounds, no rebound tenderness. Vertical scar seen. Sacral skin tear seen which is erythematous, not infected. Genitourinary: Deferred MSK/skin: Mobilizes 4 limbs. Skin is dry and warm Neurological: No motor, no sensitive deficits, normal speech. Pupils are isocoric and reactive. Psych/Mental Status: A/Ox3 laboratory and microbiology Laboratory Tests 05/06/24 11:00 Test 05/06/24 11:00 Range/Units Serum Glucose 294 H 74-106 mg/dL Labs and/or images reviewed: Labs reviewed by me, Image(s) reviewed by me Problem List/Assessment/Plan Problem List/Assessment/Plan Probable small bowel ileus ? Complete Small-bowel obstruction Descending and sigmoid diverticulosis CT scan shows, small-bowel obstruction with transition point in the right lower quadrant Surgical consultation -recommended continued conservative measures Continue NG tube with intermittent suction, continue NPO. Discontinued NGT 05/01, started clear liquid diet, progress to full liquid diet 05/02 Continue fluid resuscitation with NG tube Ambulation can not be performed as the patient is bed-bound Empiric antibiotics IV fluids Guzman IV Rocephin X-ray small bowel series with Gastrografin shows Contrast is identified within the colon by 4 hours This represents probable small bowel ileus. IV lactated ringer switched to D5 given hyponatremia 05/03-Repeat small bowel series with Gastrografin ordered, showed Contrast is identified within the colon by less than 5 hours. This represents a normal small bowel transit time. 05/04-discontinued NG. Started clear liquid diet. Gastric emptying study pending 05/06-blood cultures, UA, change Radford, COVID and influenza testing ordered. Diabetes mellitus type 2-hemoglobin A1c pending On ISS ANDIE likely vasomotor on CKD stage IIIB On IV fluids Creatinine increased to 1.9, urine protein creatinine ratio, urine sodium pending Hypernatremia, downtrending Hypokalemia Discontinued D5, started NS 05/06 History of CVA and subdural hematoma 2018 Holding aspirin given the likelihood of GI bleed in the dark black NG output History of hypertension, currently normotensive Holding antihypertensives at this point History of dementia Monitor Morbid obesity BMI is 41.7 Diet: Full liquid diet DVT prophylaxis Lovenox 40 mg sc daily GI prophylaxis: Pantoprazole 40 mg IV daily Plan discussed with patient and caregiver essence at the bedside in which all questions have been answered Goals of care discussed with patient for more than 20 minutes, full code status Case discussed with Mendieta Plan discussed with: Patient My Orders My Orders Orders - MARK ARCE RESIDENT Procedure Category Date Status Time Blood Culture MATTHEW 05/06/24 In Process 08:07 Urinalysis LAB 05/06/24 Logged 08:07 Covid19 Antigen [facility] LAB 05/06/24 Logged Rapid Influenza A&B LAB 05/06/24 Logged 08:07 * Wound Consult CONS 05/06/24 Transmitted Apply Hydrogel To [facility] 05/06/24 In Process Wound Base 11:49 Cleanse Wound With Ns [facility] 05/06/24 In Process 11:49 Sodium Chloride 0.9% PHA 05/06/24 In Process 13:00 Dietary Evaluation Review Comments: 1) Continue to monitor bowel activity. If patient remains NPO for more than 7 days, consider TPN to meet at least 75% of estimated needs 2) Consult surgery 3) Advance to clear liquid diet and progress to low-fiber diet when medically feasible, pending FRONT END TECHNICIAN approval 3) Refer to outpatient RD/[facility] for weight management Expected Outcomes/Goals: 1) Receive nutrition within 7 days 2) GI symptoms to resolve 3) appetite and labs to improve 4) diet to advance Date of Service: May 06, 2024 Billing Provider: DONNY MENDIETA DO Common Visit Codes: [id number] INP/OBS CARE(HIGH) MARK ARCE RESIDENT May 06, 2024 15:30 DONNY MENDIETA DO May 06, 2024 19:10
[2024-05-06] MEDS: POTASSIUM CHL 20MEQ/50ML 50 ML IV SCH (18:07)
--- NOTE | 2024-05-06 20:06 | DVHPN2 ---
Progress Note - Dictate Date Seen: May 06, 2024 Has the PT tested + for MRSA If YES, has PT been informed?: No Medical Necessity Reason Pt with a Central, PICC or Fol: No Subjective Patient was seen and evaluated in follow up. No acute events overnight. Patient complains of pain in hip. Wound care consulted for sacral tear. Patient passed BM overnight per RN. Creatinine is improving. Awaiting Radford catheter to be changed. vital signs Vital Sign Date Time Temp Pulse Resp B/P (MAP) Pulse Ox O2 Delivery O2 Flow Rate FiO2 05/06/24 17:11 98.6 81 18 114/72 (86) 94 98.6 05/06/24 08:00 Nasal Cannula* 2 28 Total Intake and Output 05/05/24 05/05/24 05/06/24 15:00 23:00 07:00 Intake Total 545 ml 2150 ml Output Total 850 ml 900 ml Balance -305 ml 1250 ml medications Current Medications Medications Dose Ordered Sig/Murali Route Start Time Stop Time Status Last Admin Dose Admin Metronidazole 500 mg Q8HR PO 04/27/24 06:00 Cancel Ondansetron HCl 4 mg Q6HPRN PRN IV 04/26/24 22:30 05/03/24 10:18 4 MG Ceftriaxone Sodium 50 ml @ 100 mls/hr DAILY@09 IV 04/27/24 09:00 05/06/24 10:41 100 MLS/HR Metronidazole 100 ml @ 100 mls/hr Q8HR IV 04/27/24 06:00 05/06/24 14:16 100 MLS/HR Acetaminophen 500 mg Q4HPRN PRN PO 04/27/24 15:30 Acetaminophen/ Hydrocodone Bitart 1 tab Q4HPRN PRN PO 04/27/24 15:30 05/03/24 08:40 1 TAB Gabapentin 100 mg BID PO 04/27/24 22:00 05/06/24 10:38 100 MG Morphine Sulfate 2 mg Q4HPRN PRN IV 04/29/24 12:15 05/03/24 02:51 2 MG Lactulose 30 ml BID PO 05/02/24 10:00 05/06/24 10:39 30 ML Purified Water 250 ml BID GT 05/02/24 22:00 Pantoprazole Sodium 40 mg DAILY IV 05/03/24 10:00 05/06/24 10:40 40 MG Metoclopramide HCl 5 mg Q8HR IV 05/04/24 08:30 05/06/24 14:17 5 MG Sodium Chloride 1,000 ml @ 100 mls/hr Q10H IV 05/06/24 13:00 05/06/24 14:16 100 MLS/HR Enoxaparin Sodium 40 mg DAILY SC 05/07/24 10:00 objective Vitals and nursing notes reviewed. General: Morbidly obese female patient lying in bed, in no acute distress Eyes: Pupils are isocoric and reactive. Cardiovascular: Regular S1 and S2. No murmurs, gallops or rubs. No JVD elevation. No pedal edema Respiratory: Normal B/L air entry on room air. Clear lung sounds on auscultation Abdomen: Abdomen is distended, tender and soft, normoactive bowel sounds, no rebound tenderness. Vertical scar seen. MSK/skin: Mobilizes 4 limbs. Skin is dry and warm Neurological: No motor, no sensitive deficits, normal speech. Psych/Mental Status: A/Ox3 laboratory and microbiology Laboratory Tests 05/06/24 11:00 Test 05/06/24 11:00 Range/Units Serum Glucose 294 H 74-106 mg/dL Problem List Probable small bowel ileus Descending and sigmoid diverticulosis ANDIE Hypernatremia DM2 History of CVA and subdural hematoma 2018 Assessment/Plan Agree with current supportive medical care. Full liquid diet as tolerated. Surgery following. Monitor daily labs to include renal function and electrolytes. Electrolyte replacement prn. IVFs with NS at 100 mL/hr. Change Radford catheter. IV antibiotics. Patient is bedbound. DVT prophylaxis. Additional plan as per the hospital course. Dietary Evaluation Review Comments: 1) Continue to monitor bowel activity. If patient remains NPO for more than 7 days, consider TPN to meet at least 75% of estimated needs 2) Consult surgery 3) Advance to clear liquid diet and progress to low-fiber diet when medically feasible, pending LABORER ORCHARD approval 3) Refer to outpatient RD/[facility] for weight management Expected Outcomes/Goals: 1) Receive nutrition within 7 days 2) GI symptoms to resolve 3) appetite and labs to improve 4) diet to advance Plan discussed with: Patient, Other (RN) HONEY FERRO DO May 06, 2024 20:06
[2024-05-06 22:55] LABS: Urine Bacteria FEW /hpf (None Seen); Urine Blood 2+ /uL (Negative); Urine Clarity Clear (Clear); Urine Color Light-Yellow (Yellow); Urine Hyaline Cast FEW /lpf (0 - 2); Urine Protein, UAD Negative (Negative); Urine Specific Gravity 1.004 (1.001-1.035); Urine Squamous Epithelial Cell FEW /hpf (<5); Urine Urobilinogen Normal (Negative); Urine WBC 38 /HPF (0-5); Urine pH 5.5 (5.0-9.0)
[2024-05-06 23:15] LABS: COVID19 ANTIGEN SOFIA FIA NEGATIVE (NEGATIVE)
[2024-05-06 23:16] LABS: Rapid Influenza A Negative (Negative); Rapid Influenza B Negative (Negative)
[2024-05-07] VITALS (8 sets, daily range): BP systolic 104–124; BP diastolic 69–76; PULSE 80–103; RESP 16–18; TEMP 97.7–99.2; O2SAT 97–100
[2024-05-07] MEDS: ENOXAPARIN SOD 30 MG/0.3 ML SYRINGE SC SCH (10:24)
[2024-05-07 10:41] LABS: Basophils # (auto) 0 10 ^3/uL (0-0.2); Basophils % (auto) 0.2 % (0.0-2.0); Eosinophils # (auto) 0.2 10 ^3/uL (0-0.8); Eosinophils % (auto) 1.2 % (0.0-7.0); Hematocrit 31.8 % (36.0-46.0); Hemoglobin 10.3 g/dL (12.2-16.2); Lymphocytes # (auto) 0.9 10 ^3/uL (0.4-5.4); Lymphocytes % (auto) 6.8 % (10.0-50.0); Mean Corpuscular Hemoglobin 30.7 pg (28.0-32.0); Mean Corpuscular Hgb Conc. 32.3 g/dL (32.0-36.0); Mean Corpuscular Volume 94.8 fL (80.0-100.0); Monocytes # (auto) 1.3 10 ^3/uL (0-1.3); Neutrophils % (auto) 81.8 % (37.0-80.0); Platelet Count (auto) 305 10^3/uL (140-450); Red Blood Cells 3.36 10^6/uL (4.0-5.20); Red Cell Distribution Width 16.7 % (11.8-14.3); White Blood Cell 13.5 10^3/uL (4.4-10.8)
[2024-05-07 10:59] LABS: Alkaline Phosphatase 67 U/L (46-116); Anion Gap 8 (5-15); BUN/Creatinine Ratio 6.9 (10.0-20.0); Carbon Dioxide 23 mmol/L (20-31); Potassium 3.6 mmol/L (3.5-5.1); Sodium 139 mmol/L (136-145)
[2024-05-07 11:00] LABS: Magnesium 1.7 mg/dL (1.6-2.6); Total Protein 5.7 g/dL (5.7-8.2)
[2024-05-07 11:02] LABS: Alanine Aminotransferase < 9 U/L (7-40); Albumin 3.1 g/dL (3.2-4.8); Aspartate Aminotransferase < 8 U/L (13-40); Bilirubin, Total 0.4 mg/dL (0.2-1.0); Blood Urea Nitrogen 7 mg/dL (9-23); Calcium 8.5 mg/dL (8.7-10.4); Chloride 108 mmol/L (98-107); Glucose 199 mg/dL (74-106)
--- NOTE | 2024-05-07 13:21 | DVHPNRES ---
Progress Note Date Seen: May 07, 2024 Resident Creating Document: MARK ARCE RESIDENT Has the PT tested + for MRSA If YES, has PT been informed?: No Medical Necessity Reason Pt with a Central, PICC or Fol: No Subjective Review of Systems Julianna Gibbs is a 69-year-old female past medical history of paroxysmal atrial fibrillation on Eliquis, CVA 2016 with residual weakness, bed-bound, subdural hematoma 2018, carotid stenosis, right femoral DVT 2020, neuropathic, diabetes mellitus type 2, dementia, hyperlipidemia and hypertension who presented to the ER with a chief complaint of intractable nausea and vomiting. Patient reports that she experienced abdominal pain, started 4 days back associated with intractable nausea and vomiting which was dark yellow but not bloody. Denies passing gas. She could not keep any solid food down but could keep liquid. Says it last bowel movement was 4 days back. She lives with caregiver and is bed-bound. Denies smoking drinking or illicit drug use. On arrival, patient was tachycardic but normotensive. CT scan abdomen completed, showed Small-bowel obstruction with transition point in the right lower quadrant. Recommend surgical consultation. Further evaluation with small- bowel series with water-soluble contrast could be completed if clinically indicated. NG tube was administered with suction, patient was kept NPO, surgeon was consulted recommended a small bowel series with Gastrografin which is pending. Past medical history: See above Past surgical history : Open cholecystectomy and hysterectomy Social history: Lives with caregiver, bed-bound for the past 2 years due to stroke, denies smoking, drinking or drug use Home medication: Aspirin, atorvastatin, carvedilol, enalapril, furosemide, Ozempic, Eliquis, oxybutynin, and duloxetine 04/27-Patient seen and examined at the bedside. Pending small bowel series with Gastrografin. Had a small smear like bowel movement. 04/28-patient seen and examined at bedside. Gastrografin completed, contrast identified within the colon by 4 hours. Radiologist read as small bowel ileus. Patient had 2 episodes of watery yellowish emesis in p.m. yesterday, 1 episode of yellowish emesis at 4:00 a.m. this morning. Not passing gas, absent bowel movement. No bowel movements. Spoke to Dr. Luna , recommended continuing conservative measures. 04/30 - patient seen and examined at the bedside. No emesis. Patient started to pass gas, on auscultation she has normal bowel sounds now. Over the weekend CT scan was completed which showed ileus. Surgeon saw the patient, recommended discontinuing NG tomorrow and starting clear liquid diet. Given the hypernatremia, discontinued LR, started D5. 05/01-patient seen and examined at the bedside. Surgeon recommended discontinuing NG, starting clear liquid diet. Patient has passing gas. No bowel movements. Bowel sounds are normal. 05/02-patient seen and examined at the bedside. Started lactulose 30 mL b.i.d.. Patient started throwing up the starting clear liquid diet. Patient kept NPO. 05/03-patient had multiple episodes of yellowish emesis even being on speaker wirer.o.. KUB overnight showed diffusely dilated small bowel. NGT ordered for decompression, small-bowel series ordered. Creatinine increased, urine studies ordered. 05/04-patient seen and examined at the bedside. Normoactive bowel sounds, passing gas. Patient had bowel movement this morning. Gastric Emptying study could not be completed until Tuesday. Discontinued NG, started clear liquid diet which the patient is tolerating fine for now. 05/06 - patient denies abdominal pain, reports pain in the hip. On examination she has sacral tear, wound care consulted. Patient passed BM overnight, bowel sounds normoactive, passing gas. WBC trended to 28.5, downtrending to 18. Lactic acid 2.9. IV normal saline started. Blood culture ordered. COVID, flu ordered. UA ordered. Change Radford catheter. Creatinine downtrending to 1.3. 05/07 - instability bedside. Per nurse, patient had 7 bowel movements overnight. Patient does not remember. Patient is passing flatus. WBC downtrending to 13. Lactic acidosis resolved. IV NS discontinued. Started full liquid diet. Urine culture ordered. Prelim culture negative. Podiatry consulted for toe pain. Objective vital signs Vital Sign Date Time Temp Pulse Resp B/P (MAP) Pulse Ox O2 Delivery O2 Flow Rate FiO2 05/07/24 09:00 98.5 103 17 117/72 (87) 99 98.5 05/06/24 20:00 Nasal Cannula* 2 28 Total Intake and Output 05/06/24 05/06/24 05/07/24 15:00 23:00 07:00 Intake Total 500 ml 1000 ml 580 ml Output Total 600 ml 1325 ml Balance 500 ml 400 ml -745 ml medications Current Medications Medications Dose Ordered Sig/Murali Route Start Time Stop Time Status Last Admin Dose Admin Metronidazole 500 mg Q8HR PO 04/27/24 06:00 Cancel Ondansetron HCl 4 mg Q6HPRN PRN IV 04/26/24 22:30 05/03/24 10:18 4 MG Ceftriaxone Sodium 50 ml @ 100 mls/hr DAILY@09 IV 04/27/24 09:00 05/07/24 09:58 100 MLS/HR Metronidazole 100 ml @ 100 mls/hr Q8HR IV 04/27/24 06:00 05/07/24 05:20 100 MLS/HR Acetaminophen 500 mg Q4HPRN PRN PO 04/27/24 15:30 Acetaminophen/ Hydrocodone Bitart 1 tab Q4HPRN PRN PO 04/27/24 15:30 05/07/24 08:36 1 TAB Gabapentin 100 mg BID PO 04/27/24 22:00 05/06/24 21:47 100 MG Morphine Sulfate 2 mg Q4HPRN PRN IV 04/29/24 12:15 05/03/24 02:51 2 MG Lactulose 30 ml BID PO 05/02/24 10:00 05/06/24 10:39 30 ML Purified Water 250 ml BID GT 05/02/24 22:00 Pantoprazole Sodium 40 mg DAILY IV 05/03/24 10:00 05/07/24 09:58 40 MG Metoclopramide HCl 5 mg Q8HR IV 05/04/24 08:30 05/07/24 05:20 5 MG Sodium Chloride 1,000 ml @ 100 mls/hr Q10H IV 05/06/24 13:00 05/07/24 09:56 100 MLS/HR Enoxaparin Sodium 40 mg DAILY SC 05/07/24 10:00 05/07/24 10:24 40 MG Examination Morbidly obese female patient lying in bed, in no acute distress General: Morbidly obese, afebrile, palor, mucosae are moist Cardiovascular: Regular S1 and S2. No murmurs, gallops or rubs. No JVD elevation. No pedal edema Respiratory: Normal B/L air entry on room air. Clear lung sounds on auscultation Abdomen: Abdomen is distended, tender and soft, normoactive bowel sounds, no rebound tenderness. Vertical scar seen. Sacral skin tear seen which is erythematous, not infected. Genitourinary: Deferred MSK/skin: Mobilizes 4 limbs. Skin is dry and warm Neurological: No motor, no sensitive deficits, normal speech. Pupils are isocoric and reactive. Psych/Mental Status: A/Ox3 laboratory and microbiology Laboratory Tests 05/07/24 10:30 Test 05/07/24 10:30 Range/Units Serum Glucose 199 H 74-106 mg/dL Microbiology Date/Time Source Procedure Growth Status 05/06/24 11:00 Blood Blood Culture - Preliminary NO GROWTH AFTER 24 HOURS OF INCUBATION. Resulted Labs and/or images reviewed: Labs reviewed by me, Image(s) reviewed by me Problem List/Assessment/Plan Problem List/Assessment/Plan Sepsis secondary to Probable small bowel ileus ? Complete Small-bowel obstruction Descending and sigmoid diverticulosis CT scan shows, small-bowel obstruction with transition point in the right lower quadrant Surgical consultation -recommended continued conservative measures Was NPO and with NG tube under intermittent suction. Discontinued NGT 05/01, started clear liquid diet, progress to full liquid diet 05/02 Ambulation can not be performed as the patient is bed-bound Continue IV antibiotics; added metronidazole IV due to severe diarrhea pending stool studies X-ray small bowel series with Gastrografin shows Contrast is identified within the colon by 4 hours This represents probable small bowel ileus. IV lactated ringer switched to D5 given hyponatremia 05/03-Repeat small bowel series with Gastrografin ordered, showed Contrast is identified within the colon by less than 5 hours. This represents a normal small bowel transit time. 05/04-discontinued NG. Started clear liquid diet. Gastric emptying study pending Prelim blood culture negative Diabetes mellitus type 2-hemoglobin A1c 6% On ISS ANDIE likely vasomotor on CKD stage IIIB Creatinine trended to 1.01, discontinued IV fluids; avoid nephrotoxic agents Asymptomatic bacteriuria Monitor Hypernatremia, resolved Hypokalemia Discontinued D5, started NS 05/06 till 05/07 History of CVA and subdural hematoma 2018 Holding aspirin given the likelihood of GI bleed in the dark black NG output History of hypertension, currently normotensive Holding antihypertensives at this point History of dementia Monitor Morbid obesity BMI is 41.7; counseled on the importance of adopting healthy lifestyle with diet and exercise in order to lose weight Diet: Full liquid diet DVT prophylaxis Lovenox 40 mg sc daily GI prophylaxis: Pantoprazole 40 mg IV daily Plan discussed with patient and caregiver essence at the bedside in which all questions have been answered Goals of care discussed with patient for 20 minutes, full code status Case discussed with Dr. Jewell Plan discussed with: Patient, Other (Nurse) My Orders My Orders Orders - MARK ARCE RESIDENT Procedure Category Date Status Time Ok To Change Radford ORDERS 05/06/24 Transmitted 15:20 Enoxaparin Sodium PHA 05/07/24 In Process (Lovenox) 10:00 Communication Order ORDERS 05/06/24 Transmitted 15:28 Urine Bacterial MATTHEW 05/06/24 In Process Culture 22:28 Full Liq Diet DIET 05/07/24 Transmitted Breakfast Transfer Orders XFER 05/07/24 Transmitted 09:42 Discontinue Tele SAN[place]ORD 05/07/24 In Process 09:42 *Podiatry Consult CONS 05/07/24 Transmitted Musson(Dvmg) 09:43 Communication Order ORDERS 05/07/24 Transmitted 13:05 Dietary Evaluation Review Comments: 1) Continue to monitor bowel activity. If patient remains NPO for more than 7 days, consider TPN to meet at least 75% of estimated needs 2) Consult surgery 3) Advance to clear liquid diet and progress to low-fiber diet when medically feasible, pending MAINTENANCE TECH approval 3) Refer to outpatient RD/CDCES for weight management Expected Outcomes/Goals: 1) Receive nutrition within 7 days 2) GI symptoms to resolve 3) appetite and labs to improve 4) diet to advance Addendum Addendum Addendum I was physically present for the gomes portions of the service provided to patient by THE RESIDENT. I have reviewed the documentation, discussed the case with resident and agree with the resident's documentation except as noted. Also the patient's clinical case was discussed with the patient's nurse. This medical document was created using an electronic medical record system with computerized dictation system. Although this document has been carefully reviewed, there might still be some phonetic and typographical errors. These areas are purely typographical due to imperfections of the software programs, and do not reflect any compromise in the patient's medical care. Late signature. Date of Service: May 07, 2024 Billing Provider: CROW JEWELL MD Common Visit Codes: [id number] INP/OBS CARE(HIGH) Secondary Visit Codes: [id number] CARE PLAN 30 MINUTES (20 minutes) MARK ARCE May 07, 2024 13:21 CROW JEWELL MD May 07, 2024 22:49
--- NOTE | 2024-05-07 13:40 | DVHINCON2 ---
Date Seen: May 07, 2024 Reason for Consultation Bilateral foot pain History of Present Illness This is a 69-year-old female with past medical history of CVA, diabetes type 2, dyslipidemia, hypertension, mi, paroxysmal atrial fibrillation, and dementia brought to the hospital due to nausea and vomiting. Due to advanced dementia, the patient could not provide proper history. Per patient's caregiver (Luis) she has vomiting since last night, vomited 5 times, contents was food with no blood. Patient also reports abdominal pain. Patient denies fever, chest pain, shortness of breath, dysuria, constipation or diarrhea. Shows previously on hospice care, currently bed-bound due to previous CVA. Past Medical History See H&P Past Surgical History See H&P Family History: Patient reports no known family medical history. Allergies: Coded Allergies: NO KNOWN ALLERGIES (Unverified , 04/02/10) Home Meds Reported Medications Semaglutide (Ozempic) 4 Mg/3 Ml Inj, 4 MG SC, INJ 04/27/24 Semaglutide (Ozempic) 4 Mg/3 Ml Inj, 4 MG SC, INJ 04/27/24 Glipizide (Glipizide) 10 Mg Tab, 1 TAB PO BID, #60 TAB 5 Refills 08/02/20 Atorvastatin Calcium (ATORVASTATIN CALCIUM) 20 Mg Tab, 1 TAB PO DAILY, #30 TAB 5 Refills 08/02/20 Cholecalciferol (VITAMIN D3) 2,000 Unit Tab, 5000 UNIT OR DAILY, TAB 08/02/20 Aspirin (Aspirin 81 Low Dose) 81 Mg Chw, 81 MG PO DAILY, TAB.CHEW 08/02/20 Carvedilol (Carvedilol) 3.125 Mg Tab, 1 TAB PO BID 04/02/10 Furosemide (Lasix) 40 Mg Tab, 1 TAB PO BID 04/02/10 Enalapril Maleate (Enalapril Maleate) 5 Mg Tab, 10 MG PO DAILY 04/02/10 Current Medications Current Medications Medications (Trade) Dose Ordered Sig/Murali Route PRN Reason Start Time Stop Time Status Last Admin Potassium Chloride 50 ml @ 25 mls/hr Q2H IV 05/06/24 15:45 05/06/24 19:44 DC 05/06/24 20:11 Enoxaparin Sodium (Lovenox) 40 mg DAILY SC 05/07/24 10:00 05/07/24 10:24 Vital Signs Vital Signs Date Time Temp Pulse Resp B/P (MAP) Pulse Ox O2 Delivery O2 Flow Rate FiO2 05/07/24 13:00 97.7 85 17 116/71 (86) 97 97.7 05/06/24 20:00 Nasal Cannula* 2 28 Physical Exam DERMATOLOGIC EXAM: - Nails 1-5 of the bilateral foot are thickened, discolored, dystrophic, and tender to palpate with subungual debris - No open lesions or wounds noted bilaterally - No hyperkeratotic lesions noted bilaterally. - Hair loss noted to bilateral feet - Skin is shiny and thin bilateral feet VASCULAR EXAM: - DP and PT pulses are palpable bilaterally. - HOT CAR OPERATOR is brisk to all digits. - Feet are cool to touch compared to lower legs bilaterally. - 1+ edema noted to the leg, foot, and ankle bilaterally. NEUROLOGIC EXAM: - Normal light touch sensation to the superficial peroneal, deep peroneal, sural, saphenous, and tibial nerve branches. - Protective sensation is diminished as tested with a 5.07 10g Bronaugh-Willy Monofilament bilaterally. - Vibratory sensation absent to medial 1st MPJ bilaterally MUSCULOSKELETAL EXAM: - No gross deformities - Muscle strength is 5/5 and active motion is pain-free and symmetrical bilaterally - No pain or crepitation with passive range of motion bilaterally to all major pedal joints Labs/Diagnostic Data Labs Test 05/07/24 10:30 05/06/24 22:28 05/06/24 08:07 05/06/24 00:00 Range/Units White Blood Count 13.5 #H 4.4-10.8 10^3/uL Red Blood Count 3.36 L 4.0-5.20 10^6/uL Hemoglobin 10.3 L 12.2-16.2 g/dL Hematocrit 31.8 L 36.0-46.0 % Mean Corpuscular Volume 94.8 80.0-100.0 fL Mean Corpuscular Hemoglobin 30.7 28.0-32.0 pg Mean Corpuscular Hemoglobin Concent 32.3 32.0-36.0 g/dL Red Cell Distribution Width 16.7 H 11.8-14.3 % Platelet Count 305 140-450 10^3/uL Mean Platelet Volume 8.1 6.9-10.8 fL Neutrophils (%) (Auto) 81.8 H 37.0-80.0 % Lymphocytes (%) (Auto) 6.8 L 10.0-50.0 % Monocytes (%) (Auto) 10.0 0.0-12.0 % Eosinophils (%) (Auto) 1.2 0.0-7.0 % Basophils (%) (Auto) 0.2 0.0-2.0 % Neutrophils # (Auto) 11.0 H 1.6-8.6 10 ^3/uL Lymphocytes # (Auto) 0.9 0.4-5.4 10 ^3/uL Monocytes # (Auto) 1.3 0-1.3 10 ^3/uL Eosinophils # (Auto) 0.2 0-0.8 10 ^3/uL Basophils # (Auto) 0 0-0.2 10 ^3/uL Nucleated Red Blood Cells 0.0 % Sodium Level 139 136-145 mmol/L Potassium Level 3.6 3.5-5.1 mmol/L Chloride Level 108 H 98-107 mmol/L Carbon Dioxide Level 23 20-31 mmol/L Anion Gap 8 5-15 Blood Urea Nitrogen 7 L 9-23 mg/dL Creatinine 1.01 0.550-1.02 mg/dL Glomerular Filtration Rate Calc 60 >90 mL/min BUN/Creatinine Ratio 6.9 L 10.0-20.0 Serum Glucose 199 H 74-106 mg/dL Lactic Acid Level 1.3 0.4-2.0 mmol/L Calcium Level 8.5 L 8.7-10.4 mg/dL Magnesium Level 1.7 1.6-2.6 mg/dL Total Bilirubin 0.4 0.2-1.0 mg/dL Aspartate Amino Transferase (AST) < 8 L 13-40 U/L Alanine Aminotransferase (ALT) < 9 7-40 U/L Alkaline Phosphatase 67 46-116 U/L Total Protein 5.7 5.7-8.2 g/dL Albumin 3.1 L 3.2-4.8 g/dL Urine Color Light-yellow Yellow Urine Clarity Clear Clear Urine pH 5.5 5.0-9.0 Urine Specific Kinsman 1.004 1.001-1.035 Urine Protein Negative Negative Urine Ketones Negative Negative Urine Blood 2+ H Negative /uL Urine Nitrite Negative Negative Urine Bilirubin Negative Negative Urine Urobilinogen Normal Negative mg/dL Urine Leukocyte Esterase 3+ Negative /uL Urine RBC 3 0 - 4 /hpf Urine Microscopic WBC 38 H 0-5 /HPF Urine Squamous Epithelial Cells Few <5 /hpf Urine Bacteria Few H None Seen /hpf Urine Hyaline Casts Few 0 - 2 /lpf Urine Glucose Normal Normal mg/dL Influenza Type A Antigen Negative Negative Influenza Type B Antigen Negative Negative SARS-CoV-2 Antigen (Rapid) Negative NEGATIVE Test 05/05/24 07:08 05/03/24 08:05 05/03/24 00:00 05/02/24 13:48 Range/Units Differential Total Cells Counted 100.0 100 Neutrophils % (Manual) 87 H 37.0-80.0 Band Neutrophils % (Manual) 0 Lymphocytes % (Manual) 3 L 10.0-50.0 Monocytes % (Manual) 10 0-12 Eosinophils % (Manual) 0 0-7 Basophils % (Manual) 0 0.0-2.0 Metamyelocytes % (manual) 0 Myelocytes % (Manual) 0 Promyelocytes % (Manual) 0 Blast Cells % (Manual) 0 Reactive Lymphocytes 0 Platelet Estimate Adequate Urine Calcium Oxalate Crystals Few None Seen Urine Amorphous Crystals Few None Seen /hpf Urine Granular Casts Few 0 /lpf Urine Mucus Few None Seen Urine Creatinine 256.33 H 30.0-125.0 mg/dL Urine Protein/Creatinine Ratio 0.45 Urine Sodium 21 L 40-220 mmol/L Urine Total Protein 115.8 H 1-14 mg/dL Stool Occult Blood Negative Negative Stool Occult Blood Sample #3 Negative Test 04/30/24 09:54 04/28/24 05:40 04/26/24 23:04 04/26/24 23:00 Range/Units Prothrombin Time 11.8 9.3-11.8 sec Prothrombin Time INR 1.13 0.9-1.15 Activated Partial Thromboplast Time 26.2 24.5-34.5 SEC Hemoglobin A1c 6.0 H <5.7 % A1C POC Glucose 196 H 70-106 mg/dl Lactate Dehydrogenase 204 120-246 U/L Test 04/26/24 22:28 Range/Units Urine Opiates Screen Neg NEGATIVE Urine Fentanyl Screen Neg NEGATIVE Urine Barbiturates Screen Neg NEGATIVE Urine Phencyclidine Screen Neg NEGATIVE Urine Amphetamines Screen Neg NEGATIVE Urine Benzodiazepines Screen Neg NEGATIVE Urine Cocaine Screen Neg NEGATIVE Urine Cannabinoids Screen Neg NEGATIVE Microbiology Date/Time Source Procedure Growth Status 05/06/24 11:00 Blood Blood Culture - Preliminary NO GROWTH AFTER 24 HOURS OF INCUBATION. Resulted Problems(with codes): (1) CHF (congestive heart failure) (2) Fall (3) Left knee sprain (4) Pain and swelling of left knee (5) Tricompartment osteoarthritis of left knee (6) Small bowel obstruction (7) Abdominal pain (8) Nausea Plan/Recommendation ASSESSMENT: Patient is a 69-year-old seen on the floor for painful bilateral feet PLAN: - The patients chart was reviewed, clinical findings were discussed with the patient, the etiologies of the conditions were discussed in detail, and a treatment plan was agreed to at this time, with both oral and written instructions provided. - After verbal consent was obtained, all nails of the bilateral foot (>5 nails in total) were trimmed in length and debrided of thickness with a nail nipper and rotary bur. - Educated the patient on diabetes, proper foot care guidelines for diabetics, and how good blood glucose control can help prevent lower extremity complications from diabetes. - Discussed the importance of checking their feet for blisters, cuts or sores, redness, or swelling. Tell your doctor right away if you find something wrong - Recommend wearing clean, soft socks that fit you. - Keep your feet warm and dry. - Never walk barefoot, indoors or outdoors. - Recommend using AmLactin 12% lotion twice per day for dry skin All questions were answered and concerns addressed to the patient's satisfaction. The patient was given the phone number to the clinic and was told how to make contact with the clinic should any concerns or questions arise. Patient understands that if any questions or concerns arise prior to the next appointment, we should be contacted immediately. FOLLOW-UP: Patient will follow up with me in 2-3 months for continued nail care Plan discussed with: Patient Date of Service: May 07, 2024 Billing Provider: PIETER GUERRA DPM Common Visit Codes: CONSULT ONLY Consultation Codes: [id number] CONSULT <80MIN PIETER GUERRA DPM May 07, 2024 13:40
--- NOTE | 2024-05-07 21:14 | DVHPN2 ---
Progress Note - Dictate Date Seen: May 07, 2024 Has the PT tested + for MRSA If YES, has PT been informed?: No Medical Necessity Reason Pt with a Central, PICC or Fol: No Subjective Patient was seen and evaluated in follow up. Chart/events reviewed. Patient had 7 bowel movements overnight. Passing flatus. Tolerating diet. Patient also complains of toe pain. Renal function labs improving. vital signs Vital Sign Date Time Temp Pulse Resp B/P (MAP) Pulse Ox O2 Delivery O2 Flow Rate FiO2 05/07/24 17:00 98.2 80 17 112/71 (85) 97 98.2 05/07/24 08:00 Nasal Cannula* 2 28 Total Intake and Output 05/06/24 05/06/24 05/07/24 15:00 23:00 07:00 Intake Total 500 ml 1000 ml 580 ml Output Total 600 ml 1325 ml Balance 500 ml 400 ml -745 ml medications Current Medications Medications Dose Ordered Sig/Murali Route Start Time Stop Time Status Last Admin Dose Admin Metronidazole 500 mg Q8HR PO 04/27/24 06:00 Cancel Ondansetron HCl 4 mg Q6HPRN PRN IV 04/26/24 22:30 05/03/24 10:18 4 MG Ceftriaxone Sodium 50 ml @ 100 mls/hr DAILY@09 IV 04/27/24 09:00 05/07/24 09:58 100 MLS/HR Metronidazole 100 ml @ 100 mls/hr Q8HR IV 04/27/24 06:00 05/07/24 13:37 100 MLS/HR Acetaminophen 500 mg Q4HPRN PRN PO 04/27/24 15:30 Acetaminophen/ Hydrocodone Bitart 1 tab Q4HPRN PRN PO 04/27/24 15:30 05/07/24 08:36 1 TAB Gabapentin 100 mg BID PO 04/27/24 22:00 05/06/24 21:47 100 MG Morphine Sulfate 2 mg Q4HPRN PRN IV 04/29/24 12:15 05/03/24 02:51 2 MG Lactulose 30 ml BID PO 05/02/24 10:00 05/06/24 10:39 30 ML Pantoprazole Sodium 40 mg DAILY IV 05/03/24 10:00 05/07/24 09:58 40 MG Metoclopramide HCl 5 mg Q8HR IV 05/04/24 08:30 05/07/24 13:37 5 MG Enoxaparin Sodium 40 mg DAILY SC 05/08/24 10:00 objective Vitals and nursing notes reviewed. General: Morbidly obese female patient lying in bed, in no acute distress Eyes: Pupils are isocoric and reactive. Cardiovascular: Regular S1 and S2. No murmurs, gallops or rubs. No JVD elevation. No pedal edema Respiratory: Normal B/L air entry on room air. Clear lung sounds on auscultation Abdomen: Abdomen is distended, tender and soft, normoactive bowel sounds, no rebound tenderness. Vertical scar seen. MSK/skin: Mobilizes 4 limbs. Skin is dry and warm Neurological: No motor, no sensitive deficits, normal speech. Psych/Mental Status: A/Ox3 laboratory and microbiology Laboratory Tests 05/07/24 10:30 Test 05/07/24 10:30 Range/Units Serum Glucose 199 H 74-106 mg/dL Problem List Probable small bowel ileus Descending and sigmoid diverticulosis ANDIE Hypernatremia DM2 History of CVA and subdural hematoma 2018 Assessment/Plan Agree with current supportive medical care. Full liquid diet as tolerated. Surgery following. Pending Podiatry consult. Monitor daily labs to include renal function and electrolytes. Electrolyte replacement prn. IVFs discontinued. IV antibiotics. Patient is bedbound. DVT prophylaxis. Additional plan as per the hospital course. Dietary Evaluation Review Comments: 1) Continue to monitor bowel activity. If patient remains NPO for more than 7 days, consider TPN to meet at least 75% of estimated needs 2) Consult surgery 3) Advance to clear liquid diet and progress to low-fiber diet when medically feasible, pending CASINO SHIFT MANAGER approval 3) Refer to outpatient RD/CDCES for weight management Expected Outcomes/Goals: 1) Receive nutrition within 7 days 2) GI symptoms to resolve 3) appetite and labs to improve 4) diet to advance Plan discussed with: Patient, Other (RN) HONEY FERRO DO May 07, 2024 21:14
[2024-05-08] VITALS (8 sets, daily range): BP systolic 120–148; BP diastolic 79–95; PULSE 79–105; RESP 16–20; TEMP 98–99; O2SAT 94–100
[2024-05-08] MEDS: LEVALBUTEROL HCL 1.25 MG/3 ML NEB ONE (07:34)
[2024-05-08] MEDS: ENOXAPARIN SOD 40 MG/0.4 ML SYRINGE SC SCH (09:00)
[2024-05-08 09:52] LABS: Basophils # (auto) 0 10 ^3/uL (0-0.2); Basophils % (auto) 0.3 % (0.0-2.0); Eosinophils # (auto) 0.2 10 ^3/uL (0-0.8); Eosinophils % (auto) 1.7 % (0.0-7.0); Hematocrit 33.6 % (36.0-46.0); Hemoglobin 10.7 g/dL (12.2-16.2); Lymphocytes % (auto) 7.7 % (10.0-50.0); Mean Corpuscular Hemoglobin 30.4 pg (28.0-32.0); Mean Corpuscular Hgb Conc. 31.9 g/dL (32.0-36.0); Mean Corpuscular Volume 95.5 fL (80.0-100.0); Monocytes # (auto) 1.6 10 ^3/uL (0-1.3); Monocytes % (auto) 12.9 % (0.0-12.0); Neutrophils # (auto) 9.7 10 ^3/uL (1.6-8.6); Neutrophils % (auto) 77.4 % (37.0-80.0); Platelet Count (auto) 279 10^3/uL (140-450); Red Blood Cells 3.52 10^6/uL (4.0-5.20); Red Cell Distribution Width 17.6 % (11.8-14.3); White Blood Cell 12.6 10^3/uL (4.4-10.8)
[2024-05-08 10:00] LABS: Alkaline Phosphatase 72 U/L (46-116); Anion Gap 9 (5-15); Carbon Dioxide 21 mmol/L (20-31); Potassium 3.8 mmol/L (3.5-5.1); Sodium 140 mmol/L (136-145)
[2024-05-08 10:01] LABS: Alanine Aminotransferase < 9 U/L (7-40); Aspartate Aminotransferase 9 U/L (13-40); BUN/Creatinine Ratio 4.9 (10.0-20.0); Bilirubin, Total 0.3 mg/dL (0.2-1.0); Blood Urea Nitrogen < 5 mg/dL (9-23); Calcium 8.6 mg/dL (8.7-10.4); Chloride 110 mmol/L (98-107); Glucose 255 mg/dL (74-106); Total Protein 5.5 g/dL (5.7-8.2)
[2024-05-08] MEDS ORDERED: DULO60CA41 PO (13:47)
[2024-05-08] MEDS ORDERED: ALL100T PO (13:47)
[2024-05-08] MEDS ORDERED: AMLO1TAB23 PO (13:47)
[2024-05-08] MEDS ORDERED: ENAL1TAB46 PO (13:47)
[2024-05-08] MEDS ORDERED: FER325T PO (13:47)
[2024-05-08] MEDS ORDERED: APIX2.5T PO (13:47)
[2024-05-08] MEDS ORDERED: OXYB2.5T PO (13:47)
[2024-05-08] MEDS ORDERED: PANT40TA2 PO (13:47)
--- NOTE | 2024-05-08 18:19 | DVHPNRES ---
Progress Note Date Seen: May 08, 2024 Resident Creating Document: MARK ARCE RESIDENT Has the PT tested + for MRSA If YES, has PT been informed?: No Medical Necessity Reason Pt with a Central, PICC or Fol: No Subjective Review of Systems Julianna Gibbs is a 69-year-old female past medical history of paroxysmal atrial fibrillation on Eliquis, CVA 2016 with residual weakness, bed-bound, subdural hematoma 2018, carotid stenosis, right femoral DVT 2020, neuropathic, diabetes mellitus type 2, dementia, hyperlipidemia and hypertension who presented to the ER with a chief complaint of intractable nausea and vomiting. Patient reports that she experienced abdominal pain, started 4 days back associated with intractable nausea and vomiting which was dark yellow but not bloody. Denies passing gas. She could not keep any solid food down but could keep liquid. Says it last bowel movement was 4 days back. She lives with caregiver and is bed-bound. Denies smoking drinking or illicit drug use. On arrival, patient was tachycardic but normotensive. CT scan abdomen completed, showed Small-bowel obstruction with transition point in the right lower quadrant. Recommend surgical consultation. Further evaluation with small- bowel series with water-soluble contrast could be completed if clinically indicated. NG tube was administered with suction, patient was kept NPO, surgeon was consulted recommended a small bowel series with Gastrografin which is pending. Past medical history: See above Past surgical history : Open cholecystectomy and hysterectomy Social history: Lives with caregiver, bed-bound for the past 2 years due to stroke, denies smoking, drinking or drug use Home medication: Aspirin, atorvastatin, carvedilol, enalapril, furosemide, Ozempic, Eliquis, oxybutynin, and duloxetine 04/27-Patient seen and examined at the bedside. Pending small bowel series with Gastrografin. Had a small smear like bowel movement. 04/28-patient seen and examined at bedside. Gastrografin completed, contrast identified within the colon by 4 hours. Radiologist read as small bowel ileus. Patient had 2 episodes of watery yellowish emesis in p.m. yesterday, 1 episode of yellowish emesis at 4:00 a.m. this morning. Not passing gas, absent bowel movement. No bowel movements. Spoke to Dr. Luna , recommended continuing conservative measures. 04/30 - patient seen and examined at the bedside. No emesis. Patient started to pass gas, on auscultation she has normal bowel sounds now. Over the weekend CT scan was completed which showed ileus. Surgeon saw the patient, recommended discontinuing NG tomorrow and starting clear liquid diet. Given the hypernatremia, discontinued LR, started D5. 05/01-patient seen and examined at the bedside. Surgeon recommended discontinuing NG, starting clear liquid diet. Patient has passing gas. No bowel movements. Bowel sounds are normal. 05/02-patient seen and examined at the bedside. Started lactulose 30 mL b.i.d.. Patient started throwing up the starting clear liquid diet. Patient kept NPO. 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 KUB overnight showed diffusely dilated small bowel. NGT ordered for decompression, small-bowel series ordered. Creatinine increased, urine studies ordered. 05/04-patient seen and examined at the bedside. Normoactive bowel sounds, passing gas. Patient had bowel movement this morning. Gastric Emptying study could not be completed until Tuesday. Discontinued NG, started clear liquid diet which the patient is tolerating fine for now. 05/06 - patient denies abdominal pain, reports pain in the hip. On examination she has sacral tear, wound care consulted. Patient passed BM overnight, bowel sounds normoactive, passing gas. WBC trended to 28.5, downtrending to 18. Lactic acid 2.9. IV normal saline started. Blood culture ordered. COVID, flu ordered. UA ordered. Change Radford catheter. Creatinine downtrending to 1.3. 05/07 - Per nurse, patient had 7 bowel movements overnight. Patient does not remember. Patient is passing flatus. WBC downtrending to 13. Lactic acidosis resolved. IV NS discontinued. Started full liquid diet. Urine culture ordered. Prelim culture negative. Podiatry consulted for toe pain. 05/08-patient seen and examined. Patient had a bowel movement. WBC trending down. Started soft diet. No episodes of emesis. Objective vital signs Vital Sign Date Time Temp Pulse Resp B/P (MAP) Pulse Ox O2 Delivery O2 Flow Rate FiO2 05/08/24 17:00 98.4 79 20 124/80 (95) 100 98.4 05/08/24 08:00 Room Air* 0 21 Total Intake and Output 05/07/24 05/07/24 05/08/24 15:00 23:00 07:00 Intake Total 350 ml 860 ml 600 ml Output Total 1000 ml 1800 ml Balance 350 ml -140 ml -1200 ml medications Current Medications Medications Dose Ordered Sig/Murali Route Start Time Stop Time Status Last Admin Dose Admin Metronidazole 500 mg Q8HR PO 04/27/24 06:00 Cancel Ondansetron HCl 4 mg Q6HPRN PRN IV 04/26/24 22:30 05/03/24 10:18 4 MG Ceftriaxone Sodium 50 ml @ 100 mls/hr DAILY@09 IV 04/27/24 09:00 05/08/24 09:00 100 MLS/HR Metronidazole 100 ml @ 100 mls/hr Q8HR IV 04/27/24 06:00 05/08/24 13:16 100 MLS/HR Acetaminophen 500 mg Q4HPRN PRN PO 04/27/24 15:30 Acetaminophen/ Hydrocodone Bitart 1 tab Q4HPRN PRN PO 04/27/24 15:30 05/07/24 08:36 1 TAB Gabapentin 100 mg BID PO 04/27/24 22:00 05/08/24 09:00 100 MG Morphine Sulfate 2 mg Q4HPRN PRN IV 04/29/24 12:15 05/03/24 02:51 2 MG Lactulose 30 ml BID PO 05/02/24 10:00 05/08/24 08:59 30 ML Pantoprazole Sodium 40 mg DAILY IV 05/03/24 10:00 05/08/24 08:59 40 MG Metoclopramide HCl 5 mg Q8HR IV 05/04/24 08:30 05/08/24 13:16 5 MG Enoxaparin Sodium 40 mg DAILY SC 05/08/24 10:00 05/08/24 09:00 40 MG Examination Morbidly obese female patient lying in bed, in no acute distress, bed-bound General: Morbidly obese, afebrile, palor, mucosae are moist Cardiovascular: Regular S1 and S2. No murmurs, gallops or rubs. No JVD elevation. No pedal edema Respiratory: Normal B/L air entry on room air. Clear lung sounds on auscultation Abdomen: Abdomen is distended, tender and soft, normoactive bowel sounds, no rebound tenderness. Vertical scar seen. Sacral skin tear seen which is erythematous, not infected. Genitourinary: Deferred MSK/skin: Mobilizes 4 limbs. Skin is dry and warm Neurological: No motor, no sensitive deficits, normal speech. Pupils are isocoric and reactive. Psych/Mental Status: A/Ox3 laboratory and microbiology Laboratory Tests 05/08/24 09:30 Test 05/08/24 09:30 Range/Units Serum Glucose 255 H 74-106 mg/dL Microbiology Date/Time Source Procedure Growth Status 05/07/24 16:35 Voided Urine Urine Culture - Preliminary Resulted 05/06/24 11:00 Blood Blood Culture - Preliminary NO GROWTH AFTER 48 HOURS OF INCUBATION. Resulted Labs and/or images reviewed: Labs reviewed by me, Image(s) reviewed by me Problem List/Assessment/Plan Problem List/Assessment/Plan Sepsis secondary to Probable small bowel ileus ? Complete Small-bowel obstruction Descending and sigmoid diverticulosis CT scan shows, small-bowel obstruction with transition point in the right lower quadrant Surgical consultation -recommended continued conservative measures Continue NG tube with intermittent suction, continue NPO. Discontinued NGT 05/01, started clear liquid diet, progress to full liquid diet 05/02 Continue fluid resuscitation with NG tube Ambulation can not be performed as the patient is bed-bound Empiric antibiotics IV fluids Guzman IV Rocephin X-ray small bowel series with Gastrografin shows Contrast is identified within the colon by 4 hours This represents probable small bowel ileus. IV lactated ringer switched to D5 given hyponatremia 05/03-Repeat small bowel series with Gastrografin ordered, showed Contrast is identified within the colon by less than 5 hours. This represents a normal small bowel transit time. 05/04-discontinued NG. Started clear liquid diet. 05/06-blood cultures, UA, change Radford, COVID and influenza testing ordered. Gastric emptying study could not be tolerated by patient Prelim blood culture negative 05/08 - started soft diet Diabetes mellitus type 2-hemoglobin A1c pending On ISS ANDIE likely vasomotor on CKD stage IIIB Creatinine trended to 1.01, discontinued IV fluids Asymptomatic bacteriuria Monitor Hypernatremia, resolved Hypokalemia Discontinued D5, started NS 05/06 till 05/07 History of CVA and subdural hematoma 2018 Holding aspirin given the likelihood of GI bleed in the dark black NG output History of hypertension, currently normotensive Holding antihypertensives at this point History of dementia Monitor Morbid obesity BMI is 41.7 creative services coordinator consulted for discharge planning back to hospice. Diet: soft DVT prophylaxis Lovenox 40 mg sc daily GI prophylaxis: Pantoprazole 40 mg IV daily Plan discussed with patient and caregiver essence at the bedside in which all questions have been answered Goals of care discussed with patient, full code status Case discussed with Dr. Jewell Plan discussed with: Patient, Other (Nurse) My Orders My Orders Orders - MARK ARCE RESIDENT Procedure Category Date Status Time Urine Bacterial MATTHEW 05/07/24 In Process Culture 19:41 Soft Diet DIET 05/08/24 Transmitted Dinner * Dragline Operator Helper CONS 05/08/24 Verified Consult Dietary Evaluation Review Comments: 1) Continue to monitor bowel activity. If patient remains NPO for more than 7 days, consider TPN to meet at least 75% of estimated needs 2) Consult surgery 3) Advance to clear liquid diet and progress to low-fiber diet when medically feasible, pending [employer] approval 3) Refer to outpatient RD/[facility] for weight management Expected Outcomes/Goals: 1) Receive nutrition within 7 days 2) GI symptoms to resolve 3) appetite and labs to improve 4) diet to advance Addendum Addendum Addendum I was physically present for the gomes portions of the service provided to patient by THE RESIDENT. I have reviewed the documentation, discussed the case with resident and agree with the resident's documentation except as noted. Also the patient's clinical case was discussed with the patient's nurse. This medical document was created using an electronic medical record system with computerized dictation system. Although this document has been carefully reviewed, there might still be some phonetic and typographical errors. These areas are purely typographical due to imperfections of the software programs, and do not reflect any compromise in the patient's medical care. Late signature. Date of Service: May 08, 2024 Billing Provider: CROW JEWELL MD Common Visit Codes: [id number] INP/OBS CARE(HIGH) MARK ARCE RESIDENT May 08, 2024 18:19 CROW JEWELL MD May 09, 2024 05:09
--- NOTE | 2024-05-08 20:40 | DVHPN2 ---
Progress Note - Dictate Date Seen: May 08, 2024 Has the PT tested + for MRSA If YES, has PT been informed?: No Medical Necessity Reason Pt with a Central, PICC or Fol: No Subjective Patient was seen and evaluated in follow up. No acute events overnight. No complaints. Patient denies N/V. Reports having a bowel movement. Tolerating diet. AM labs are remarkable for BUN <5. Creatinine wnl. Cl 110. Glucose 255. Calcium 8.6. Albumin 3.0. Total protein 5.5. vital signs Vital Sign Date Time Temp Pulse Resp B/P (MAP) Pulse Ox O2 Delivery O2 Flow Rate FiO2 05/08/24 17:00 98.4 79 20 124/80 (95) 100 98.4 05/08/24 08:00 Room Air* 0 21 Total Intake and Output 05/07/24 05/07/24 05/08/24 15:00 23:00 07:00 Intake Total 350 ml 860 ml 600 ml Output Total 1000 ml 1800 ml Balance 350 ml -140 ml -1200 ml medications Current Medications Medications Dose Ordered Sig/Murali Route Start Time Stop Time Status Last Admin Dose Admin Metronidazole 500 mg Q8HR PO 04/27/24 06:00 Cancel Ondansetron HCl 4 mg Q6HPRN PRN IV 04/26/24 22:30 05/03/24 10:18 4 MG Ceftriaxone Sodium 50 ml @ 100 mls/hr DAILY@09 IV 04/27/24 09:00 05/08/24 09:00 100 MLS/HR Metronidazole 100 ml @ 100 mls/hr Q8HR IV 04/27/24 06:00 05/08/24 13:16 100 MLS/HR Acetaminophen 500 mg Q4HPRN PRN PO 04/27/24 15:30 Acetaminophen/ Hydrocodone Bitart 1 tab Q4HPRN PRN PO 04/27/24 15:30 05/07/24 08:36 1 TAB Gabapentin 100 mg BID PO 04/27/24 22:00 05/08/24 09:00 100 MG Morphine Sulfate 2 mg Q4HPRN PRN IV 04/29/24 12:15 05/03/24 02:51 2 MG Lactulose 30 ml BID PO 05/02/24 10:00 05/08/24 08:59 30 ML Pantoprazole Sodium 40 mg DAILY IV 05/03/24 10:00 05/08/24 08:59 40 MG Metoclopramide HCl 5 mg Q8HR IV 05/04/24 08:30 05/08/24 13:16 5 MG Enoxaparin Sodium 40 mg DAILY SC 05/08/24 10:00 05/08/24 09:00 40 MG objective Vitals and nursing notes reviewed. General: Morbidly obese female patient lying in bed, in no acute distress Eyes: Pupils are isocoric and reactive. Cardiovascular: Regular S1 and S2. No murmurs, gallops or rubs. No JVD elevation. No pedal edema Respiratory: Normal B/L air entry on room air. Clear lung sounds on auscultation Abdomen: Abdomen is distended, tender and soft, normoactive bowel sounds, no rebound tenderness. Vertical scar seen. MSK/skin: Mobilizes 4 limbs. Skin is dry and warm Neurological: No motor, no sensitive deficits, normal speech. Psych/Mental Status: A/Ox3 laboratory and microbiology Laboratory Tests 05/08/24 09:30 Test 05/08/24 09:30 Range/Units Serum Glucose 255 H 74-106 mg/dL Problem List Probable small bowel ileus Descending and sigmoid diverticulosis ANDIE Hypernatremia DM2 History of CVA and subdural hematoma 2018 Assessment/Plan Agree with current supportive medical care. SW consulted. Discharge planning to previous hospice facility. Started on soft diet. Surgery following. Monitor daily labs to include renal function and electrolytes. Electrolyte replacement prn. IV antibiotics. Patient is bedbound. Bowel care regimen. DVT prophylaxis. Additional plan as per the hospital course. Dietary Evaluation Review Comments: 1) Continue to monitor bowel activity. If patient remains NPO for more than 7 days, consider TPN to meet at least 75% of estimated needs 2) Consult surgery 3) Advance to clear liquid diet and progress to low-fiber diet when medically feasible, pending [employer]LIND[employer] DYER approval 3) Refer to outpatient RD/[facility] for weight management Expected Outcomes/Goals: 1) Receive nutrition within 7 days 2) GI symptoms to resolve 3) appetite and labs to improve 4) diet to advance Plan discussed with: Patient, Other (RN) HONYE FERRO DO May 08, 2024 20:40
[2024-05-09 01:00] VITALS: BP 130/70; PULSE 106; RESP 19; TEMP 98.5; O2SAT 98
[2024-05-09 05:00] VITALS: BP 109/67; PULSE 100; RESP 19; TEMP 98.3; O2SAT 98
[2024-05-09 07:21] LABS: Basophils # (auto) 0 10 ^3/uL (0-0.2); Basophils % (auto) 0.5 % (0.0-2.0); Eosinophils # (auto) 0.2 10 ^3/uL (0-0.8); Eosinophils % (auto) 2.1 % (0.0-7.0); Hematocrit 29.2 % (36.0-46.0); Hemoglobin 9.7 g/dL (12.2-16.2); Lymphocytes # (auto) 1.3 10 ^3/uL (0.4-5.4); Lymphocytes % (auto) 14.4 % (10.0-50.0); Mean Corpuscular Hemoglobin 31.4 pg (28.0-32.0); Mean Corpuscular Hgb Conc. 33.1 g/dL (32.0-36.0); Mean Corpuscular Volume 94.8 fL (80.0-100.0); Monocytes # (auto) 1.2 10 ^3/uL (0-1.3); Monocytes % (auto) 13.9 % (0.0-12.0); Neutrophils # (auto) 6.2 10 ^3/uL (1.6-8.6); Neutrophils % (auto) 69.1 % (37.0-80.0); Platelet Count (auto) 348 10^3/uL (140-450); Red Blood Cells 3.08 10^6/uL (4.0-5.20); Red Cell Distribution Width 16.8 % (11.8-14.3); White Blood Cell 8.9 10^3/uL (4.4-10.8)
[2024-05-09 08:00] VITALS: PULSE 100; RESP 18; O2SAT 98
[2024-05-09 08:01] LABS: Alanine Aminotransferase < 9 U/L (7-40); Alkaline Phosphatase 82 U/L (46-116); Anion Gap 9 (5-15); Aspartate Aminotransferase < 8 U/L (13-40); Carbon Dioxide 22 mmol/L (20-31); Chloride 110 mmol/L (98-107); Glucose 250 mg/dL (74-106); Potassium 3.7 mmol/L (3.5-5.1); Sodium 141 mmol/L (136-145)
[2024-05-09 08:02] LABS: Albumin 2.9 g/dL (3.2-4.8); BUN/Creatinine Ratio 1.5 (10.0-20.0); Bilirubin, Total 0.2 mg/dL (0.2-1.0); Calcium 8.5 mg/dL (8.7-10.4); Total Protein 5.5 g/dL (5.7-8.2)
[2024-05-09 08:50] LABS: Blood Urea Nitrogen 6 mg/dL (9-23); Magnesium 1.6 mg/dL (1.6-2.6)
[2024-05-09 09:00] VITALS: BP 118/62; PULSE 94; RESP 18; TEMP 98.4; O2SAT 99
--- NOTE | 2024-05-09 10:20 | DVHPN2 ---
Subjective Doing well with no complaints; ready to be discharged home with home hospice Reviewed: Care Plan, H&P, Labs, Medications, Previous Orders, Radiology, Other (Consultations) Changes from previous H/P or p: Changes Objective Vitals Vital Signs Date Time Temp Pulse Resp B/P (MAP) Pulse Ox O2 Delivery O2 Flow Rate FiO2 05/09/24 09:00 98.4 94 18 118/62 (80) 99 98.4 05/08/24 20:00 Nasal Cannula* 3 32 Intake/Output Intake and Output 05/09/24 07:00 Intake Total 1795 ml Output Total 552 ml Balance 1243 ml Intake Oral 1445 ml IV Total 350 ml Output Urine Total 550 ml Stool Total 2 ml # Voids 2 # Bowel Movements 1 General Appearance: Alert, Oriented X3, Cooperative, No acute distress, Other (Morbidly obese) HEENT: Atraumatic Neck: Supple Lungs: Clear to auscultation, Normal air movement Cardiovascular: Regular rate, Normal S1, Normal S2, No murmurs Abdomen: Normal bowel sounds, Soft, No tenderness Genitourinary: Other (Radford's in place) Neuro: Normal speech, Cranial nerves 3-12 NL Psych/Mental Status: Mental status NL, Mood NL Medications Current Medications Medications Dose Ordered Sig/Murali Route Start Time Stop Time Status Last Admin Dose Admin Metronidazole 500 mg Q8HR PO 04/27/24 06:00 Cancel Ondansetron HCl 4 mg Q6HPRN PRN IV 04/26/24 22:30 05/03/24 10:18 4 MG Ceftriaxone Sodium 50 ml @ 100 mls/hr DAILY@09 IV 04/27/24 09:00 05/09/24 08:49 100 MLS/HR Metronidazole 100 ml @ 100 mls/hr Q8HR IV 04/27/24 06:00 05/09/24 05:36 100 MLS/HR Acetaminophen 500 mg Q4HPRN PRN PO 04/27/24 15:30 Acetaminophen/ Hydrocodone Bitart 1 tab Q4HPRN PRN PO 04/27/24 15:30 05/07/24 08:36 1 TAB Gabapentin 100 mg BID PO 04/27/24 22:00 05/09/24 08:50 100 MG Morphine Sulfate 2 mg Q4HPRN PRN IV 04/29/24 12:15 05/03/24 02:51 2 MG Lactulose 30 ml BID PO 05/02/24 10:00 05/09/24 08:49 30 ML Pantoprazole Sodium 40 mg DAILY IV 05/03/24 10:00 05/09/24 08:49 40 MG Metoclopramide HCl 5 mg Q8HR IV 05/04/24 08:30 05/09/24 05:36 5 MG Enoxaparin Sodium 40 mg DAILY SC 05/08/24 10:00 05/09/24 08:50 40 MG Laboratory Results Laboratory Tests 05/09/24 05:35 Chemistry Test 05/09/24 05:35 Albumin 2.9 g/dL (3.2-4.8) L Calcium Level 8.5 mg/dL (8.7-10.4) L Magnesium Level 1.6 mg/dL (1.6-2.6) Total Protein 5.5 g/dL (5.7-8.2) L LFT Test 05/09/24 05:35 Alanine Aminotransferase (ALT) < 9 U/L (7-40) Alkaline Phosphatase 82 U/L (46-116) Aspartate Amino Transferase (AST) < 8 U/L (13-40) L Total Bilirubin 0.2 mg/dL (0.2-1.0) Urinalysis Test 05/03/24 00:00 05/03/24 08:05 05/06/24 22:28 Urine Creatinine 256.33 mg/dL (30.0-125.0) H Urine Protein/Creatinine Ratio 0.45 Urine Sodium 21 mmol/L (40-220) L Urine Total Protein 115.8 mg/dL (1-14) H Urine Calcium Oxalate Crystals Few (None Seen) Urine Amorphous Crystals Few /hpf (None Seen) Urine Granular Casts Few /lpf (0) Urine Mucus Few (None Seen) Urine Color Light-yellow (Yellow) Urine Clarity Clear (Clear) Urine pH 5.5 (5.0-9.0) Urine Specific [place] 1.004 (1.001-1.035) Urine Protein Negative (Negative) Urine Ketones Negative (Negative) Urine Blood 2+ /uL (Negative) H Urine Nitrite Negative (Negative) Urine Bilirubin Negative (Negative) Urine Urobilinogen Normal mg/dL (Negative) Urine Leukocyte Esterase 3+ /uL (Negative) Urine RBC 3 /hpf (0 - 4) Urine Microscopic WBC 38 /HPF (0-5) H Urine Squamous Epithelial Cells Few /hpf (<5) Urine Bacteria Few /hpf (None Seen) H Urine Hyaline Casts Few /lpf (0 - 2) Urine Glucose Normal mg/dL (Normal) Microbiology Microbiology Date/Time Source Procedure Growth Status 05/07/24 16:35 Voided Urine Urine Culture - Preliminary Resulted 05/06/24 11:00 Blood Blood Culture - Preliminary NO GROWTH AFTER 48 HOURS OF INCUBATION. Resulted Labs and/or images reviewed: Labs reviewed by me, Image(s) reviewed by me Assessment/Plan Assessment/Plan Covering: #Sepsis secondary to probable small bowel ileus; status post IV antibiotics #? Complete Small-bowel obstruction; status post NG tube #Descending and sigmoid diverticulosis; to avoid constipation upon discharge Tolerating well soft diet so will be discharged home with hospice #Diabetes mellitus type 2; to resume home medications upon discharge #ANDIE, likely vasomotor nephropathy, on CKD stage IIIB; received IV fluids; renal function back to baseline Creatinine trended to 1.01, discontinued IV fluids #Asymptomatic bacteriuria; received IV antibiotics #Hypernatremia; resolved with IV fluids #Hypokalemia; received replacement as indicated during admission #History of CVA and subdural hematoma 2018; will be discharged home on hospice #History of hypertension, was normotensive during admission; will be discharged home on hospice; so management as per hospice team #History of dementia; no behavioral changes; management as per hospital team upon discharge home #Morbid obesity; management as per hospital team upon discharge home Will be discharged home with hospice; social worker school consulted Late Entry. This medical document was created using an electronic medical record system with computerized dictation system. Although this document has been carefully reviewed, there might still be some phonetic and typographical errors. These areas are purely typographical due to imperfections of the software programs, and do not reflect any compromise in the patient's medical care. Plan discussed with: Patient, Other (Nurse) My Orders Orders - CROW JEWELL MD Procedure Category Date Status Time Basic Metabolic Panel LAB 05/10/24 Verified 04:00 Complete Blood Count LAB 05/10/24 Verified 04:00 Date of Service: May 09, 2024 Billing Provider: CROW JEWELL MD Common Visit Codes: [id number] INP/OBS CARE(MOD) CROW JEWELL MD May 09, 2024 10:20
--- NOTE | 2024-05-09 11:16 | DVHDS2 ---
Discharge Summary Date of Admission Apr 26, 2024 at 22:17 Date of Discharge: May 09, 2024 Admitting Diagnosis Acute abdomen with nausea/vomiting/abdominal pain Wounds: Posterior sacrococcyx: scar tissue; present on admission Labs/Diagnostic Data: Laboratory Results Test 05/09/24 05:35 05/07/24 10:30 05/06/24 22:28 05/06/24 08:07 White Blood Count 8.9 10^3/uL (4.4-10.8) Red Blood Count 3.08 10^6/uL (4.0-5.20) Hemoglobin 9.7 g/dL (12.2-16.2) Hematocrit 29.2 % (36.0-46.0) Mean Corpuscular Volume 94.8 fL (80.0-100.0) Mean Corpuscular Hemoglobin 31.4 pg (28.0-32.0) Mean Corpuscular Hemoglobin Concent 33.1 g/dL (32.0-36.0) Red Cell Distribution Width 16.8 % (11.8-14.3) Platelet Count 348 10^3/uL (140-450) Mean Platelet Volume 8.4 fL (6.9-10.8) Neutrophils (%) (Auto) 69.1 % (37.0-80.0) Lymphocytes (%) (Auto) 14.4 % (10.0-50.0) Monocytes (%) (Auto) 13.9 % (0.0-12.0) Eosinophils (%) (Auto) 2.1 % (0.0-7.0) Basophils (%) (Auto) 0.5 % (0.0-2.0) Neutrophils # (Auto) 6.2 10 ^3/uL (1.6-8.6) Lymphocytes # (Auto) 1.3 10 ^3/uL (0.4-5.4) Monocytes # (Auto) 1.2 10 ^3/uL (0-1.3) Eosinophils # (Auto) 0.2 10 ^3/uL (0-0.8) Basophils # (Auto) 0 10 ^3/uL (0-0.2) Nucleated Red Blood Cells 0.0 % Sodium Level 141 mmol/L (136-145) Potassium Level 3.7 mmol/L (3.5-5.1) Chloride Level 110 mmol/L (98-107) Carbon Dioxide Level 22 mmol/L (20-31) Anion Gap 9 (5-15) Blood Urea Nitrogen 6 mg/dL (9-23) Creatinine 1.11 mg/dL (0.550-1.02) Glomerular Filtration Rate Calc 53 mL/min (>90) BUN/Creatinine Ratio 1.5 (10.0-20.0) Serum Glucose 250 mg/dL (74-106) Calcium Level 8.5 mg/dL (8.7-10.4) Magnesium Level 1.6 mg/dL (1.6-2.6) Total Bilirubin 0.2 mg/dL (0.2-1.0) Aspartate Amino Transferase (AST) < 8 U/L (13-40) Alanine Aminotransferase (ALT) < 9 U/L (7-40) Alkaline Phosphatase 82 U/L (46-116) Total Protein 5.5 g/dL (5.7-8.2) Albumin 2.9 g/dL (3.2-4.8) Lactic Acid Level 1.3 mmol/L (0.4-2.0) Urine Color Light-yellow (Yellow) Urine Clarity Clear (Clear) Urine pH 5.5 (5.0-9.0) Urine Specific [place] 1.004 (1.001-1.035) Urine Protein Negative (Negative) Urine Ketones Negative (Negative) Urine Blood 2+ /uL (Negative) Urine Nitrite Negative (Negative) Urine Bilirubin Negative (Negative) Urine Urobilinogen Normal mg/dL (Negative) Urine Leukocyte Esterase 3+ /uL (Negative) Urine RBC 3 /hpf (0 - 4) Urine Microscopic WBC 38 /HPF (0-5) Urine Squamous Epithelial Cells Few /hpf (<5) Urine Bacteria Few /hpf (None Seen) Urine Hyaline Casts Few /lpf (0 - 2) Urine Glucose Normal mg/dL (Normal) Influenza Type A Antigen Negative (Negative) Influenza Type B Antigen Negative (Negative) Test 05/06/24 00:00 05/05/24 07:08 05/03/24 08:05 05/03/24 00:00 SARS-CoV-2 Antigen (Rapid) Negative (NEGATIVE) Differential Total Cells Counted 100.0 (100) Neutrophils % (Manual) 87 (37.0-80.0) Band Neutrophils % (Manual) 0 Lymphocytes % (Manual) 3 (10.0-50.0) Monocytes % (Manual) 10 (0-12) Eosinophils % (Manual) 0 (0-7) Basophils % (Manual) 0 (0.0-2.0) Metamyelocytes % (manual) 0 Myelocytes % (Manual) 0 Promyelocytes % (Manual) 0 Blast Cells % (Manual) 0 Reactive Lymphocytes 0 Platelet Estimate Adequate Urine Calcium Oxalate Crystals Few (None Seen) Urine Amorphous Crystals Few /hpf (None Seen) Urine Granular Casts Few /lpf (0) Urine Mucus Few (None Seen) Urine Creatinine 256.33 mg/dL (30.0-125.0) Urine Protein/Creatinine Ratio 0.45 Urine Sodium 21 mmol/L (40-220) Urine Total Protein 115.8 mg/dL (1-14) Test 05/02/24 13:48 04/30/24 09:54 04/28/24 05:40 04/26/24 23:04 Stool Occult Blood Negative (Negative) Stool Occult Blood Sample #3 (Negative) Prothrombin Time 11.8 sec (9.3-11.8) Prothrombin Time INR 1.13 (0.9-1.15) Activated Partial Thromboplast Time 26.2 SEC (24.5-34.5) Hemoglobin A1c 6.0 % A1C (<5.7) POC Glucose 196 mg/dl (70-106) Test 04/26/24 23:00 04/26/24 22:28 Lactate Dehydrogenase 204 U/L (120-246) Urine Opiates Screen Neg (NEGATIVE) Urine Fentanyl Screen Neg (NEGATIVE) Urine Barbiturates Screen Neg (NEGATIVE) Urine Phencyclidine Screen Neg (NEGATIVE) Urine Amphetamines Screen Neg (NEGATIVE) Urine Benzodiazepines Screen Neg (NEGATIVE) Urine Cocaine Screen Neg (NEGATIVE) Urine Cannabinoids Screen Neg (NEGATIVE) Other Laboratory Tests 05/09/24 05:35 Brief Hx & Hospital Course: Covering: For more details; please kindly refer to progress note of Dr. Ibarra on May 08, 2024 #Sepsis secondary to probable small bowel ileus; status post IV antibiotics #? Complete Small-bowel obstruction; status post NG tube #Descending and sigmoid diverticulosis; to avoid constipation upon discharge Tolerating well soft diet so will be discharged home with hospice #Diabetes mellitus type 2; to resume home medications upon discharge #ANDIE, likely vasomotor nephropathy, on CKD stage IIIB; received IV fluids; renal function back to baseline Creatinine trended to 1.01, discontinued IV fluids #Asymptomatic bacteriuria; received IV antibiotics #Hypernatremia; resolved with IV fluids #Hypokalemia; received replacement as indicated during admission #History of CVA and subdural hematoma 2018; will be discharged home on hospice #History of hypertension, was normotensive during admission; will be discharged home on hospice; so management as per hospice team #History of dementia; no behavioral changes; management as per hospital team upon discharge home #Morbid obesity; management as per hospital team upon discharge home Physical examination documented in the progress note from the day of discharge on May 09, 2024 Will be discharged home with hospice; medical social consultant consulted Late Entry. This medical document was created using an electronic medical record system with computerized dictation system. Although this document has been carefully reviewed, there might still be some phonetic and typographical errors. These areas are purely typographical due to imperfections of the software programs, and do not reflect any compromise in the patient's medical care. Consults/Reason for consult Surgery for suspected small bowel obstruction; nephrology for ANDIE on CKD; podiatry for diabetic feet Condition at Discharge: Stable Final Diagnosis/Problems List #Sepsis; details as above Rest of diuresis as above Discharge Disposition: Hospice - Home Discharge Instruct/Medications Diet: Consistent carbohydrate, Cardiac 2g Na,low cholest Activity: Bed rest Activity comment: Bed-bound patienyt Follow Up/Referral: As per home hospice Medications: As per home hospice Discharge Statement: "Patient was advised to return to the ER or call 911 if any headaches, dizziness, shortness of breath, chest pain, abdominal pain, bleeding, fevers, or worsening of medical condition. Patient was counseled about treatment plan, medications, possible side effects, patientverbalized understanding. All questions were answered to the best of my ability. This discharge took greater then 30 minutes in planning, reviewing documentation, counseling the patient, and discussing with other team members." ASSESSMENT ASSESSMENT Assessment Date of Service: May 09, 2024 Billing Provider: CROW JEWELL MD Common Visit Codes: 73539-JBA/OBS DISCH DAY >30min CROW JEWELL MD May 09, 2024 11:15
[2024-05-09 13:00] VITALS: BP 115/67; PULSE 98; RESP 18; TEMP 98.6; O2SAT 97
--- NOTE | 2024-05-09 20:44 | DVHPN2 ---
Progress Note - Dictate Date Seen: May 09, 2024 Has the PT tested + for MRSA If YES, has PT been informed?: No Medical Necessity Reason Pt with a Central, PICC or Fol: No Subjective Patient was seen and evaluated in follow up. No acute events overnight. No new complaints. Renal function labs are stable. Discharge planning in progress for home with hospice. vital signs Vital Sign Date Time Temp Pulse Resp B/P (MAP) Pulse Ox O2 Delivery O2 Flow Rate FiO2 05/09/24 13:00 98.6 98 18 115/67 (83) 97 98.6 05/09/24 08:00 Nasal Cannula* 3 32 Total Intake and Output 05/08/24 05/08/24 05/09/24 15:00 23:00 07:00 Intake Total 150 ml 920 ml 725 ml Output Total 2 ml 550 ml Balance 150 ml 918 ml 175 ml medications Current Medications Medications Dose Ordered Sig/Murali Route Start Time Stop Time Status Last Admin Dose Admin Metronidazole 500 mg Q8HR PO 04/27/24 06:00 Cancel objective Vitals and nursing notes reviewed. General: Morbidly obese female patient lying in bed, in no acute distress Eyes: Pupils are isocoric and reactive. Cardiovascular: Regular S1 and S2. No murmurs, gallops or rubs. No JVD elevation. No pedal edema Respiratory: Normal B/L air entry on room air. Clear lung sounds on auscultation Abdomen: Abdomen is distended, tender and soft, normoactive bowel sounds, no rebound tenderness. Vertical scar seen. MSK/skin: Mobilizes 4 limbs. Skin is dry and warm Neurological: No motor, no sensitive deficits, normal speech. Psych/Mental Status: A/Ox3 laboratory and microbiology Laboratory Tests 05/09/24 05:35 Test 05/09/24 05:35 Range/Units Serum Glucose 250 H 74-106 mg/dL Problem List Probable small bowel ileus Descending and sigmoid diverticulosis ANDIE Hypernatremia DM2 History of CVA and subdural hematoma 2018 Assessment/Plan DC planning in progress. Hospice care. Cleared for discharge from Nephrology standpoint. Dietary Evaluation Review Comments: 1) Continue to monitor bowel activity. If patient remains NPO for more than 7 days, consider TPN to meet at least 75% of estimated needs 2) Consult surgery 3) Advance to clear liquid diet and progress to low-fiber diet when medically feasible, pending [employer]IOR [employer]UCER approval 3) Refer to outpatient RD/[facility] for weight management Expected Outcomes/Goals: 1) Receive nutrition within 7 days 2) GI symptoms to resolve 3) appetite and labs to improve 4) diet to advance Plan discussed with: Patient, Other (RN) HONEY FERRO DO May 09, 2024 20:44
== END 2024-05-09 16:42 | disposition hospice, home (50) | DRG 871 ==
LOC: EDBD 13:53 → ER 13:53 → OVERFLOW 22:17 → WEST WING 22:18 → TELE-WESTW 05-02 23:26 → WEST WING 05-07 13:35
PROVIDERS: ADMIT Internal Medicine; ATTEND Internal Medicine
PROC: 0D9670Z Drainage of Stomach with Drainage Device, Via Natural or Artificial Opening (ICD-10-PCS; principal; 2024-04-27)
PROC: 05HF33Z Insertion of Infusion Device into Left Cephalic Vein, Percutaneous Approach (ICD-10-PCS; 2024-05-03)
PROC: B54NZZA Ultrasonography of Left Upper Extremity Veins, Guidance (ICD-10-PCS; 2024-05-03)
DX: A41.9 Sepsis, unspecified organism (principal); N17.0 Acute kidney failure with tubular necrosis; K56.601 Complete intestinal obstruction, unspecified as to cause; Z68.41 Body mass index [BMI] 40.0-44.9, adult; E87.0 Hyperosmolality and hypernatremia; I13.0 Hypertensive heart and chronic kidney disease with heart failure and stage 1 through stage 4 chronic kidney disease, or unspecified chronic kidney disease; K56.7 Ileus, unspecified; K57.30 Diverticulosis of large intestine without perforation or abscess without bleeding; Z20.822 Contact with and (suspected) exposure to COVID-19; E66.01 Morbid (severe) obesity due to excess calories; K59.00 Constipation, unspecified; E78.5 Hyperlipidemia, unspecified; F03.90 Unspecified dementia, unspecified severity, without behavioral disturbance, psychotic disturbance, mood disturbance, and anxiety; I48.0 Paroxysmal atrial fibrillation; N18.32 Chronic kidney disease, stage 3b; E11.22 Type 2 diabetes mellitus with diabetic chronic kidney disease; E87.6 Hypokalemia; I50.9 Heart failure, unspecified; Z51.5 Encounter for palliative care; Z79.82 Long term (current) use of aspirin; Z79.899 Other long term (current) drug therapy; Z79.84 Long term (current) use of oral hypoglycemic drugs; Z90.710 Acquired absence of both cervix and uterus; Z90.49 Acquired absence of other specified parts of digestive tract; Z86.73 Personal history of transient ischemic attack (TIA), and cerebral infarction without residual deficits; Z79.01 Long term (current) use of anticoagulants; Z74.01 Bed confinement status; Z87.891 Personal history of nicotine dependence
CPT/HCPCS: 36415; 71045; 74018; 74176; 74250; 80048; 80053; 80307; 81001; 82270; 82570; 82962; 83036; 83605; 83615; 83735; 84156; 84295; 84300; 85007; 85025; 85027; 85610; 85730; 87040; 87086; 87426; 87804; 93005; 97110; 97116; 97163; 97530; G0378; J0131; J1815; J2405; J2470; J3480; J3490